=== PATIENT | female | born 1960 | race African-American/Black ===

== ENCOUNTER 2020-10-11 20:43 | Emergency (ER) | payer BC, OTHER, SELFPAY ==
--- OUTSIDE RECORDS SUMMARY | 2020-10-11 20:45 | XMS REPORT | Summary of Care ---
:1960 Author Organization [facility] - Health Address [address] [place] [address] Care Team Providers Name Role Phone Pcp, Patient Does Not Have A Primary Care Provider +[id number] 0-0000 Encounter Details Date Type Department Care Team Description 09/24/2020 Orders Only [facility] Doctor Unassigned, No [address] [facility] [place] [address] [address] [place] [address] Allergies No Known Allergiesdocumented as of this encounter (statuses as of 09/24/2020) Medications Medication Sig Dispensed Refills Start Date End Date Status methylPREDNISolone Take 21 tablets 1 Each 0 02/28/2020 Active (MEDROL, MIGUEL,) 4 mg by mouth tabletsIndications: SEE-INSTRUCTIONS Lumbar radiculopathy . follow package directions documented as of this encounter (statuses as of 09/24/2020) Active Problems Not on filedocumented as of this encounter (statuses as of 09/24/2020) Social History Tobacco Use Types Packs/Day Years Used Date Never Smoker Smokeless Tobacco: Never Used Sex Assigned at Date Recorded Not on file documented as of this encounter Last Filed Vital Signs Not on filedocumented in this encounter Plan of Treatment Health Maintenance Due Date Last Done Comments HEPATITIS C (HCV) SCREEN 1960 Depression Screening 1971 DTaP,Tdap,and Td Vaccines (1 - 1978 Tdap) PAP SMEAR 1980 Breast Cancer Screening (MAMMOGRAM) 1999 COLON CANCER SCREENING ANNUAL 2009 FIT/FOBT COLON CANCER SCREENING FIT DNA 2009 EVERY 3 YEARS COLON CANCER SCREENING 2009 SIGMOIDOSCOPY EVERY 5 YEARS COLONOSCOPY 2009 Colorectal Cancer Screening 2009 Zoster Recombinant Vaccine 2009 (SHINGRIX) (1 of 2) INFLUENZA VACCINE (#1) 2020 PNEUMOCOCCAL 0-64 YEARS COMBINED Aged Out No longer eligible based on SERIES patient's age to complete this topic documented as of this encounter Procedures Procedure Name Priority Date/Time Associated Diagnosis Comme nts CONSENT/REFUSAL FOR Routine 09/24/2020 10:50 AM CLINICAL COORDINATOR DIAGNOSIS AND TREATMENT documented in this encounter Results Not on filedocumented in this encounter Insurance Payer Benefit Plan / Subscriber ID Effective Phone Address T ype Group Dates MEDICAID MEDICAID Effective for [facility] [employer] P ending PENDING [place] [address] documented as of this encounter
--- OUTSIDE RECORDS SUMMARY | 2020-10-11 20:45 | XMS REPORT | Continuity of Care Document ---
:1960 Author Organization [facility] t Address [address] [place] [address] Care Team Providers Name Role Phone Moiz Christianson Attending Clinician Doctor Unassigned, Name Attending Clinician Unavailable Rachel HOLLINS L Attending Clinician Problems This patient has no known problems. Allergies, Adverse Reactions, Alerts This patient has no known allergies or adverse reactions. Medications This patient has no known medications. Procedures This patient has no known procedures. Encounters Start End Encounter Admission Attending Care Care Encounter Source Date/Time Date/Time Type Type Clinicians Facility Department ID 2020-09-24 2020-09-24 Emergency ZACK Hamlin [id number] 10:59:00 13:13:00 Ro Jackson [id number] [place] [id number] [place] [id number] 2020-09-24 2020-09-24 Orders Doctor GANN [id number] 00:00:00 00:00:00 Only UnassHIWOT kiser [id number] [place] [facility] [id number] 2020-02-28 2020-02-28 Office ZACK Ramos [id number] 13:42:58 14:02:55 Visit [facility] [id number] Surgical [id number] [place] [id number] [address] Results This patient has no known results.
--- OUTSIDE RECORDS SUMMARY | 2020-10-11 20:46 | XMS REPORT | Summary of Care ---
:1960 Author Organization [facility] - Health Address [address] [place] [address] Care Team Providers Name Role Phone Pcp, Patient Does Not Have A Primary Care Provider +[id number] 0-0000 Reason for Referral (Routine) Status Reason Specialty Diagnoses / Referred By Contact Refe rred To Procedures Contact New Request URO-UROLOGY Diagnoses Hematuria, gross Ro Hamlin, Procedures Discharge Follow-Up: Specialty Service URO-UROLOGY; 3-5 Days [employer] [address] [place] [phone] Phone: MRI/CAT Scan (STAT) Status Reason Specialty Diagnoses / Referred By Referred To Procedures Contact Contact New Request Diagnostic Diagnoses Left lower quadrant abdominal pain Hematuria, gross Ro Hamlin, Radiology Procedures CT ABDOMEN PELVIS W CONTRAST [employer] [address] [place] [phone] Reason for Visit Reason Comments Pain left lower abdomen Other bright red color urine Auth/Cert Status Reason Specialty Diagnoses / Referred By Referred To Procedures Contact Contact Emergency Medicine [facility] Em ergency Dept [address] [place] [address] Fax: Encounter Details Date Type Department Care Team Description 09/24/2020 Emergency ADC-Emergency Ro Hamlin , CASINO SUPER[employer]OR Hematuria, gross (Primary Dx); Department [address] [place] [address] Left lower quadrant abdominal pain [address] [place] [address] [address] [place] [address] [phone] Allergies No Known Allergiesdocumented as of this encounter (statuses as of 09/24/2020) Medications Medication Sig Dispensed Refills Start Date End Date Status methylPREDNISolone Take 21 tablets 1 Each 0 02/28/2020 Active (MEDROL, MIGUEL,) 4 mg by mouth tabletsIndications: SEE-INSTRUCTIONS Lumbar radiculopathy . follow package directions traMADoL 50 mg Take 1 tablet by 15 tablet 0 09/24/2020 Active tabletIndications: acute mouth every 6 pain (six) hours as needed for Pain (scale 7-10) for up to 15 doses. Indications: acute pain documented as of this encounter (statuses as of 09/24/2020) Active Problems Not on filedocumented as of this encounter (statuses as of 09/24/2020) Social History Tobacco Use Types Packs/Day Years Used Date Never Smoker Smokeless Tobacco: Never Used Sex Assigned at Date Recorded Not on file COVID-19 Exposure Response Date Recorded In the last month, have you been in contact with No / Unsure 09/24/2020 11:07 AM GERIATRIC NURSE someone who was confirmed or suspected to have Coronavirus / COVID-19? documented as of this encounter Last Filed Vital Signs Vital Sign Reading Time Taken Comments Blood Pressure 136/79 09/24/2020 1:00 PM GERIATRIC NURSE Pulse 95 09/24/2020 1:00 PM GERIATRIC NURSE Temperature 36.8 C (98.3 F) 09/24/2020 1:00 PM GERIATRIC NURSE Respiratory Rate 27 09/24/2020 1:00 PM GERIATRIC NURSE Oxygen Saturation 99% 09/24/2020 1:00 PM GERIATRIC NURSE Inhaled Oxygen Concentration - - Weight 109.8 kg (242 lb) 09/24/2020 11:09 AM GERIATRIC NURSE Height 157.5 cm (5' 2") 09/24/2020 11:09 AM GERIATRIC NURSE Body Mass Index 44.26 09/24/2020 11:09 AM GERIATRIC NURSE documented in this encounter Discharge Instructions Ro Meredith FNP - 09/24/2020Take medications as directed Continue all home medications Avoid fatty, fried and spicy foods Follow up with your PCP as discussed -make appointment Follow up with Urology as discussed Return for any concerns AttachmentsThe following attachments cannot be sent through Care Everywhere. Abdominal Pain, Adult (Dominican)Pain, Communicating About (Dominican)Pain Response,Understanding (Dominican)Hematuria (Dominican)Hematuria: Possible Causes (Dominican)Hematuria, What is (Dominican)documented in this encounter ED Notes Stacy Hurtado RN - 09/24/2020 11:07 AM CSTPatient started to have left lower abd pain and bloody urine since last night. H/o htn, arthritis. documented in this encounter Miscellaneous Notes ED Nurse Note - Stacy Hurtado RN - 09/24/2020 1:11 PM CSTDischarge teaching given. One prescription handed over. Patient verbalized understanding. Vitals stable. No acute distress noted. Patient ambulatory. documented in this encounter Plan of Treatment Health Maintenance Due Date Last Done Comments HEPATITIS C (HCV) SCREEN 1960 Depression Screening 1971 DTaP,Tdap,and Td Vaccines ( - 1978 Tdap) PAP SMEAR 1980 Breast [...] encounter Procedures Procedure Name Priority Date/Time Associated Comments Diagnosis CT ABDOMEN PELVIS W STAT 09/24/2020 12:18 PM Left lower nirav drant Results for this CONTRAST GERIATRIC NURSE abdominal pain procedure are in Hematuria, gross the results section. URINALYSIS STAT 09/24/2020 11:25 AM Left lower quadrant R esults for this GERIATRIC NURSE abdominal pain procedure are in Hematuria, gross the results section. CBC WITH DIFF STAT 09/24/2020 11:25 AM Left lower quadrant Results for this GERIATRIC NURSE abdominal pain procedure are in Hematuria, gross the results section. BASIC METABOLIC STAT 09/24/2020 11:25 AM Left lower quadran t Results for this PANEL (NA, K, CL, GERIATRIC NURSE abdominal pain procedure are in CO2, GLUCOSE, BUN, Hematuria, gross the r esults CREATININE, CA) section. HEPATIC FUNCTION STAT 09/24/2020 11:25 AM Left lower quadra nt Results for this PANEL (45112) GERIATRIC NURSE abdominal pain procedure are in (ALB,T.PRO,BILI Hematuria, gross the resu lts T,BU/BC,ALT,AST,ALK section. PHOS) NOTICE OF PRIVACY Routine 09/24/2020 10:54 AM PRACTICES GERIATRIC NURSE documented in this encounter Results CT ABDOMEN PELVIS W CONTRAST (09/24/2020 12:18 PM GERIATRIC NURSE) Specimen Narrative Performed At This result has an attachment that is no t available. CT Abdomen and Pelvis with intravenous contrast. PACS/VR/DOSE CLINICAL HISTORY: Abdominal pain. Rule out diverticuli tis. DOSE: Up-to-date CT equipment and radiation dose reduc tion techniques were employed. CTDIvol: 18.91 mGy. DLP: 849 mGy-cm. TECHNIQUE : Contiguous axial imaging from the level of the lung bases through the pubic symphysis were performed after the u ncomplicated administration of Omnipaque contrast material. Coronal and sagittal reconstructions were obtained. Auto mA and/or iterativ e reconstruction were used to reduce radiation dose. FINDINGS: Lower lungs: Clear. Liver, Gallbladder and Spleen: 12 mm low-density lesio n in the lateral subdiaphragmatic right lobe (segment 7) is of uncertai n etiology on this single phase imaging study but could be cystic lesion. Mild thickening of the gallbladder garcia noted. Liver measures approximat taj 17.5 cm in length. Spleen measures approximately 10 x 4 cm. Bile ducts and the pancreatic duct appear of normal size. Peritoneum: No free air or free fluid. No lymphadeno joel. Pancreas and Adrenals: Unremarkable pancreas and adr enal gland.1.5 cm size lesion also noted adjacent to the anterior surface of upper pole of the right kidney, likely arising from the lateral limb of the right adrenal gland. Kidneys and Ureters: No visible calculi in the renal collecting systems. No hydroureter or hydronephrosis. 5 mm low-density les ion in the dorsal cortex at the interpolar level of the left kidney coul d be small cyst. lobulation noted in the anterior upper left kidn ey. In addition, a fat-containing 3 x 2 cm sized tumor also noted along t he ventral surface near the upper pole of the left kidney. Etiology of th e fatty tumor is uncertain but it appears benign. Vessels: Calcifications are noted in some of the retro peritoneal veins on both sides. Retroperitoneum: No abnormal fluid or lymphadenopathy. Bowel: Diverticulosis of sigmoid colon noted without a ny acute changes. Mild constipation noted. Normal appendix is visualized . Bladder and Reproductive Organs: S/P hysterectomy. No gross pathology in the unopacified urinary bladder. No adnexal masses. Bones: Degenerative disc disease at L4-L5 with vacuum phenomenon. Degenerative disc disease also noted at L5-S1, L3-L4. Multilevel facet arthropathy is noted throughout lumbar spines, slightl y more at L3-L4 level. No aggressive bone lesions. No signs of AVN in the femoral heads. Soft tissues: 3 cm size right paraumbilical fat-contai lei hernia without any complications. CONCLUSION: 1. No acute intra-abdominal or pelvic abnormalities de tected. Sigmoid diverticulosis is noted without any acute changes of d iverticulitis. 2. S/P hysterectomy. 3. Mild hepatomegaly with low-density 12 mm lesion in the right lobe of the liver could be an incidental cyst of the exact etiolog y is uncertain in this single phase CT imaging. 4. Fat-containing 3 x 2 cm size tumor is seen on the v entral surface near the upper pole of the left kidney. Tumor appears benig n. 5. 15 mm right adrenal gland tumor, of unknown etiolog y. Monitoring of the right adrenal tumor and the fat-containing tumor in th e left retroperitoneum suggested by follow-up CT scan in 4-6 months. Procedure Note [facility], Radiant Results Inft User - 2019 12:[address] Abdomen and Pelvis with intravenous contrast. CLINICAL HISTORY: Abdominal pain. Rule o ut diverticulitis. DOSE: Up-to-date CT equipment and radiat ion dose reduction techniques were employed. CTDIvol: 18.91 mGy. DLP: 849 mGy-cm. TECHNIQUE : Contiguous axial imaging fro m the level of the lung bases through the pubic symphysis were perform ed after the uncomplicated administration of Omnipaque contrast mat erial. Coronal and sagittal reconstructions were obtained. Auto mA a nd/or iterative reconstruction were used to reduce radiation dose. FINDINGS: Lower lungs: Clear. Liver, Gallbladder and Spleen: 12 mm low -density lesion in the lateral subdiaphragmatic right lobe (segment 7) is of uncertain etiology on this single phase imaging study but could be cystic lesion. Mild thickening of the gallbladder garcia noted. Liver measu res approximately 17.5 cm in length. Spleen measures approximately 10 x 4 cm. Bile ducts and the pancreatic duct appear of normal size. Peritoneum: No free air or free fluid. No lymphadenopathy. Pancreas and Adrenals: Unremarkable minaya creas and adrenal gland.1.5 cm size lesion also noted adjacent to the anteri or surface of upper pole of the right kidney, likely arising from the la teral limb of the right adrenal gland. Kidneys and Ureters: No visible calculi in the renal collecting systems. No hydroureter or hydronephrosis. 5 mm l ow-density lesion in the dorsal cortex at the interpolar level of the le ft kidney could be small cyst. lobulation noted in the anterior u pper left kidney. In addition, a fat-containing 3 x 2 cm sized tumor also noted along the ventral surface near the upper pole of the left kidney. Etiology of the fatty tumor is uncertain but it appears benign. Vessels: Calcifications are noted in kenan e of the retroperitoneal veins on both sides. Retroperitoneum: No abnormal fluid or ly mphadenopathy. Bowel: Diverticulosis of sigmoid colon n oted without any acute changes. Mild constipation noted. Normal appendix is visualized. Bladder and Reproductive Organs: S/P hys terectomy. No gross pathology in the unopacified urinary bladder. No adne xal masses. Bones: Degenerative disc disease at L4-L 5 with vacuum phenomenon. Degenerative disc disease also noted at L5-S1, L3-L4. Multilevel facet arthropathy is noted throughout lumbar s pines, slightly more at L3-L4 level. No aggressive bone lesions. No si gns of AVN in the femoral heads. Soft tissues: 3 cm size right paraumbili lora fat-containing hernia without any complications. CONCLUSION: 1. No acute intra-abdominal or pelvic ab normalities detected. Sigmoid diverticulosis is noted without any acut e changes of diverticulitis. 2. S/P hysterectomy. 3. Mild hepatomegaly with low-density 12 mm lesion in the right lobe of the liver could be an incidental cyst of the exact etiology is uncertain in this single phase CT imaging. 4. Fat-containing 3 x 2 cm size tumor is seen on the ventral surface near the upper pole of the left kidney. Tumor appears benign. 5. 15 mm right adrenal gland tumor, of u nknown etiology. Monitoring of the right adrenal tumor and the fat-containi ng tumor in the left retroperitoneum suggested by follow-up C T scan in 4-6 months. Performing Organization Address City/[facility] [address]/Zipcode Phone Number PACS/VR/DOSE Hepatic Function Panel (ALB, T.PRO, BILI T, BU/BC, ALT, AST, ALK PHOS) (09/24/2020 11:25 AM GERIATRIC NURSE) Pathologist Sig nature TOTAL BILI 0.4 0.1 - 1.1 mg/dL [facility] BILI UNCON 0.3 0.1 - 1.1 mg/dL [facility] BILI CONJ 0.0 0.0 - 0.3 mg/dL [facility] T PROTEIN 7.9 6.3 - 8.2 g/dL [facility] ALBUMIN 4.4 3.5 - 5.0 g/dL [facility] ALK PHOS 58 34 - 122 U/L [facility] ALTv 12 5 - 35 U/L [facility] AST(SGOT) 28 13 - 40 U/L [facility] Specimen Blood - VENOUS Performing Organization Address City/[facility] [address]/Zipcode Phone Number [facility] CLIA: [id number] [place] [address] Basic Metabolic Panel (NA, K, CL, CO2, GLUCOSE, BUN, CREATININE, CA) (09/24/2020 11:25 AM GERIATRIC NURSE) Pathologist Sig nature NA 138 135 - 145 [facility] mmol/L [facility] K 4.1 3.5 - 5.0 [facility] mmol/L [facility] CL 102 98 - 108 mmol/L [facility] CO2 TOTAL 28 23 - 31 mmol/L [facility] AGAP 8 2 - 16 [facility] BUN 25 (H) 7 - 23 mg/dL [facility] GLUCOSE 99 70 - 110 mg/dL [facility] CREATININE 0.95 0.50 - 1.04 [facility] mg/dL [facility] CALCIUM 9.8 8.6 - 10.6 [facility] mg/dL [facility] eGFR Calculation 60.0 mL/min/1.73m2 [facility] (Non-) [facility] eGFR Calculation 72.7 mL/min/1.73m2 [facility] () [facility] Specimen Blood - VENOUS Narrative Performed At Association of Glomerular Filtration Rate (GFR) [facility] and Staging of Kidney Disease* + + +- + | GFR (mL/min/1.73 m2) | With Kidney Damage | Without Kidney Damage + + +- + | >90 | Stage one | Normal + + +- + | 60-89 | Stage two | Decreased GFR + + +- + | 30-59 | Stage three | Stage three + + +- + | 15-29 | Stage four | Stage four + + +- + | <15 (or dialysis) | Stage five | Stage five + + +- + *Each stage assumes the associated GFR level has been in effect for at least three months. Stages 1 to 5, with or without kidney disease, indicate chronic kidney disease. Notes: Determination of stages one and two (with eGFR >59mL/min/1.73 m2) requires estimation of kidney damage for at least three months as defined by structural or functional abnormalities of the kidney, manifested by either: Pathological abnormalities or Markers of kidney damage (including abnormalities in the composition of the blood or urine or abnormalities in imaging tests). Performing Organization Address City/State/Zipcode Phone Number [facility] CLIA: [id number] [place] [address] CBC with Differential (09/24/2020 11:25 AM GERIATRIC NURSE) [facility] WBC 8.13 4.30 - 11.10 [facility] 10*3/L [facility] RBC 3.85 (L) 3.93 - 5.25 [facility] 10*6/L [facility] HGB 10.8 (L) 11.6 - 15.0 [facility] g/dL [facility] HCT 33.6 (L) 35.7 - 45.2 % [facility] MCV 87.3 80.6 - 95.5 fL [facility] MCH 28.1 25.9 - 32.8 pg [facility] MCHC 32.1 31.6 - 35.1 [facility] g/dL [facility]ITAL [facility] RDW-SD 46.7 39.0 - 49.9 fL [facility] RDW-CV 14.6 12.0 - 15.5 % [facility] PLT 231 166 - 358 [facility] 10*3/L [facility] MPV 10.8 9.5 - 12.9 fL [facility] NRBC/100 WBC 0.0 0.0 - 10.0 /100 [facility] WBCs [facility] NRBC x10^3 <0.01 10*3/L [facility] GRAN MAT (NEUT) % 48.5 % [facility] IMM GRAN % 0.50 % [facility] LYMPH % 36.4 % [facility] MONO % 10.3 % [facility] EOS % 3.7 % [facility] BASO % 0.6 % [facility] GRAN MAT x10^3(ANC) 3.94 1.88 - 7.09 [facility] 10*3/uL [facility] IMM GRAN x10^3 0.04 0.00 - 0.06 [facility] 10*3/uL [facility] LYMPH x10^3 2.96 1.32 - 3.29 [facility] 10*3/uL [facility] MONO x10^3 0.84 0.33 - 0.92 [facility] 10*3/uL [facility] EOS x10^3 0.30 0.03 - 0.39 [facility] 10*3/uL [facility] BASO x10^3 0.05 0.01 - 0.07 [facility] 10*3/uL [facility] Specimen Blood - VENOUS Performing Organization Address City/State/Zipcode Phone Number [facility] CLIA: [id number] [place], [place] [id number] LABORATORY [address] Urinalysis (09/24/2020 11:25 AM GERIATRIC NURSE) Pathologist Sig nature APPEARANCE Cloudy (A) Clear [facility] COLOR Vandana (A) Yellow [facility] PH 6.0 4.8 - 8.0 [facility] SP GRAVITY 1.016 1.003 - 1.030 [facility] GLU U QUAL Normal Normal [facility] BLOOD 3+ (A) Negative [facility] KETONES Negative Negative [facility] PROTEIN 100 mg/dL (A) Negative [facility] UROBILIN Normal Normal [facility] BILIRUBIN Negative Negative [facility] NITRITE Negative Negative [facility] LEUK SOCORRO Negative Negative [facility] RBC/HPF >182 (H) 0 - 3 HPF [facility] WBC/HPF 4 0 - 5 HPF [facility] BACTERIA Few (A) Negative [facility] MUCOUS Marked (A) Negative LPF [facility] SQ EPITH 5 HPF [facility] Specimen Urine - URINE, CLEAN CATCH Performing Organization Address City/State/Zipcode Phone Number [facility] CLIA: [id number] [place] [address] documented in this encounter Visit Diagnoses Diagnosis Hematuria, gross - Primary Gross hematuria Left lower quadrant abdominal pain documented in this encounter Administered Medications Medication Order MAR Action Action Date Dose Rate Site acetaminophen (TYLENOL) tablet Given 09/24/2020 1:00 PM GERIATRIC NURSE 1,0 00 mg 1,000 mg 1,000 mg, Oral, ONCE, 1 dose, Tue09/24/20 at 1400, CAESAR iohexol (OMNIPAQUE 350 BULK-150 mL) Given 09/24/2020 12:14 PM CS T 120 mL injection 120 mL 120 mL, Intravenous, ONCE, 1 dose, Tue09/24/20 at 1230, Routine NaCl 0.9% (NS) bolus infusion New Bag 09/24/2020 12:01 PM GERIATRIC NURSE 1,000 mL 999 mL/hr 1,000 mL at 999 mL/hr, 1,000 mL, IV Infusion, ONCE, 1 dose, Tue09/24/20 at 1200, CAESAR documented in this encounter Insurance Payer Benefit Plan / Subscriber ID Effective Phone Address T ype Group Dates MEDICAID MEDICAID PENDING 2020-Pre [address] [place] [address] Pending [place] [address] documented as of this encounter
[2020-10-11 21:42] LABS: Absolute Lymphocytes (CBC) 2.1 K/uL (0.7-4.9); Basophils % 0.7 % (0-1.3); Hematocrit 32.7 % (36.0-45.0); Lymphocytes % 29.6 % (15.3-44.8); MPV 8.7 fL (7.6-11.3); RBC Red Blood Cell Count 3.83 M/uL (3.86-4.86)
[2020-10-11] MEDS ORDERED: ONDANSETRON 4 MG/2 ML VIAL ONE (21:49)
[2020-10-11] MEDS ORDERED: MORPHINE 4 MG/ML SYR ONE (21:49)
[2020-10-11 21:50] LABS: Protime INR 0.99
[2020-10-11 22:03] LABS: ALT/SGPT 14 U/L (12-78); AST/SGOT 14 U/L (15-37); Albumin 3.7 g/dL (3.4-5.0); Alkaline Phosphatase 68 U/L (45-117); BUN Blood Urea Nitrogen 21 mg/dL (7-18); Bicarbonate 27 mmol/L (21-32); Bilirubin Direct < 0.1 mg/dL (0-0.2); Bilirubin Total 0.3 mg/dL (0.2-1.0); Glucose Level 114 mg/dL (74-106); Potassium 3.5 mmol/L (3.5-5.1); Protein, Total 7.6 g/dL (6.4-8.2); Sodium Level 140 mmol/L (136-145)
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
[2020-10-12 03:17] VITALS: TEMP 98
[2020-10-12 03:24] VITALS: BP 145/83; O2SAT 98
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
== END 2020-10-12 02:53 | disposition home or self-care (01) ==
LOC: ER 20:43
DX: S20.211A Contusion of right front wall of thorax, initial encounter (principal); S80.02XA Contusion of left knee, initial encounter; S40.022A Contusion of left upper arm, initial encounter; V49.40XA Driver injured in collision with unspecified motor vehicles in traffic accident, initial encounter; I10 Essential (primary) hypertension; E11.9 Type 2 diabetes mellitus without complications
CPT/HCPCS: 36415; 70450; 71260; 72125; 72170; 74177; 80048; 80076; 82565; 85025; 85610; 85730; 86850; 86900; 86901; 96374; 96375; 99285; G0390; J2405; Q9967

== ENCOUNTER 2022-07-20 12:39 | Inpatient (IN) | payer MEDICARE ==
--- OUTSIDE RECORDS SUMMARY | 2022-07-20 12:43 | XMS REPORT | Continuity of Care Document ---
:1960 Author Organization [facility] t Address [address] [place] [address] Care Team Providers Name Role Phone Peetr Robledo Primary Care Physician [phone] Arin Carrasquillo Attending Clinician Unavailable OWENS_T Attending Clinician Unavailable QUINTON HOOPER Attending Clinician Unavailable RAFAEL TAVERAS Attending Clinician Unavailable Ro Christianson Attending Clinician Doctor Unassigned, Currie Attending Clinician Unavailable ROLA MCNEILL Attending Clinician Unavailable Rola Mcneill MD Attending Clinician Kathleen Jovel Admitting Clinician Unavailable OWENS_T Admitting Clinician Unavailable Payers Payer Name Policy Type Policy Number Effective Date Expiration Date jase [facility] 2021 (MEDICARE 00:00:00 REPLACEMENT HMO) Problems This patient has no known problems. Allergies, Adverse Reactions, Alerts Allergy Allergy Status Severity Reaction(s) Onset Inactive Treating Comm ents Source Name Type Date Date Clinician NO KNOWN Drug Active [facility] ALLERGIE Class [facility] Medications Ordered Filled Start Stop Current Ordering Indication Dosage Frequency Signature Comments Components Source Medication Medication Date Date Medication? Clinician (SIG) Name Name TAKE 1 2021-0 No TABLET BY 9-13 MOUTH EVERY 00:00: 6 TO 8 00 HOURS NEEDED FOR PAIN naproxen 2021-0 No 1mg 500 mg 2-07 tablet 00:00: 00 gabapentin 2021-0 No 2mg 100 mg 2-07 capsule 00:00: 00 valsartan 2020-0 No 1mg 40 mg 8-04 tablet 00:00: 00 allopurinol 2020-0 No 1mg 100 mg 8-04 tablet 00:00: 00 Dose 2020-0 No Unknown 8-04 00:00: 00 Dose 2020-0 No Unknown 8-04 00:00: 00 metformin 2020-0 No 1mg ER 500 mg 8-04 24 hr 00:00: tablet,exte 00 nded release (gastric) gabapentin 2020-0 No 1mg 100 mg 8-04 capsule 00:00: 00 valsartan 2020-0 No 1mg 40 mg 8-03 tablet 00:00: 00 allopurinol 2020-0 No 1mg 100 mg 8-03 tablet 00:00: 00 furosemide 2020-0 No 1mg 20 mg 8-03 tablet 00:00: 00 meloxicam 2020-0 No 1mg 7.5 mg 8-03 tablet 00:00: 00 metformin 2020-0 No 1mg ER 500 mg 8-03 24 hr 00:00: tablet,exte 00 nded release (gastric) gabapentin 2020-0 No 1mg 100 mg 8-03 capsule 00:00: 00 terbinafine 2020-0 No 1% HCl 1 % 5-21 topical 00:00: cream 00 valsartan 2020-0 No 1mg 40 mg 5-21 tablet 00:00: 00 allopurinol 2020-0 No 1mg 100 mg 5-21 tablet 00:00: 00 furosemide 2020-0 No 1mg 20 mg 5-21 tablet 00:00: 00 metformin 2020-0 No 1mg ER 500 mg 5-21 24 hr 00:00: tablet,exte 00 nded release (gastric) gabapentin 2020-0 No 1mg 100 mg 5-21 capsule 00:00: 00 metformin 2020-0 No 1mg ER 500 mg 2-14 24 hr 00:00: tablet,exte 00 nded release valsartan 2020-0 No 1mg 40 mg 2-13 tablet 00:00: 00 allopurinol 2020-0 No 1mg 100 mg 2-13 tablet 00:00: 00 meloxicam 2020-0 No 1mg 7.5 mg 2-13 tablet 00:00: 00 furosemide 2020-0 No 1mg 20 mg 2-13 tablet 00:00: 00 gabapentin 2020-0 No 1mg 100 mg 2-13 capsule 00:00: 00 valsartan 2020-0 No 1mg 40 mg 2-04 tablet 00:00: 00 tramadol 50 2019-1 No 1mg mg tablet 2-16 00:00: 00 gabapentin 2019-1 No 1mg 100 mg 2-16 capsule 00:00: 00 gabapentin 2019-1 No 1mg 100 mg 2-16 capsule 00:00: 00 allopurinol 2019-1 No 1mg 100 mg 2-16 tablet 00:00: 00 losartan 2019-1 No 1mg 100 2-16 mg-hydrochl 00:00: orothiazide 00 25 mg tablet meloxicam 2018-1 No 1mg 7.5 mg 2-16 tablet 00:00: 00 amlodipine 2019-1 No 1mg 10 mg 2-16 tablet 00:00: 00 meloxicam 2019-1 No 1mg 7.5 mg 2-16 tablet 00:00: 00 allopurinol 2019-1 No 1mg 100 mg 2-16 tablet 00:00: 00 furosemide 2019-1 No 1mg 20 mg 2-16 tablet 00:00: 00 Immunizations Ordered Immunization Filled Immunization Date Status Commen ts Source Name Name Jamel CHAOID-19 2021-11-25 Completed Vaccine 00:00:00 Jamel COVID-19 2021-04-30 Completed Vaccine 00:00:00 Jamel COVID-19 2021-03-31 Completed Vaccine 00:00:00 Vital Signs Vital Name Observation Time Observation Value Comments Source BP Systolic 2022-07-07 10:52:00 128 mm[Hg] BP Diastolic 2022-07-07 10:52:00 76 mm[Hg] Weight Measured 2022-07-07 10:52:00 234.00 pounds Height Measured 2022-07-07 10:52:00 62.40 inches Body Temperature 2022-07-07 10:52:00 97.90 degrees Heart Rate 2022-07-07 10:52:00 89.00 /min Respiratory Rate 2022-07-07 10:52:00 18.00 /min BP Systolic 2021-11-09 16:42:00 151 mm[Hg] BP Diastolic 2021-11-09 16:42:00 90 mm[Hg] Weight Measured 2021-11-09 16:42:00 231.80 pounds Height Measured 2021-11-09 16:42:00 62.40 inches Body Temperature 2021-11-09 16:42:00 98.30 degrees Heart Rate 2021-11-09 16:42:00 88.00 /min Respiratory Rate 2021-11-09 16:42:00 16.00 /min BP Systolic 2021-05-06 14:50:00 154 mm[Hg] BP Diastolic 2021-05-06 14:50:00 88 mm[Hg] Weight Measured 2021-05-06 14:50:00 243.00 pounds Height Measured 2021-05-06 14:50:00 62.40 inches Body Temperature 2021-05-06 14:50:00 97.90 degrees Heart Rate 2021-05-06 14:50:00 90.00 /min Respiratory Rate 2021-05-06 14:50:00 16.00 /min BP Systolic 2020-05-05 17:37:00 140 mm[Hg] BP Diastolic 2020-05-05 17:37:00 84 mm[Hg] Weight Measured 2020-05-05 17:37:00 232.00 pounds Height Measured 2020-05-05 17:37:00 62.40 inches Body Temperature 2020-05-05 17:37:00 98.30 degrees Heart Rate 2020-05-05 17:37:00 95.00 /min Respiratory Rate 2020-05-05 17:37:00 16.00 /min Heart Rate 2020-02-21 15:33:00 98.00 /min Respiratory Rate 2020-02-21 15:33:00 16.00 /min BP Systolic 2020-02-21 15:33:00 97 mm[Hg] BP Diastolic 2020-02-21 15:33:00 63 mm[Hg] Weight Measured 2020-02-21 15:33:00 225.40 pounds Height Measured 2020-02-21 15:33:00 62.40 inches Body Temperature 2020-02-21 15:33:00 99.40 degrees BP Systolic 2020-01-24 13:42:00 152 mm[Hg] BP Diastolic 2020-01-24 13:42:00 83 mm[Hg] Weight Measured 2020-01-24 13:42:00 231.60 pounds Height Measured 2020-01-24 13:42:00 62.40 inches Body Temperature 2020-01-24 13:42:00 98.20 degrees Heart Rate 2020-01-24 13:42:00 89.00 /min Respiratory Rate 2020-01-24 13:42:00 16.00 /min BP Systolic 2019-12-20 14:38:00 118 mm[Hg] BP Diastolic 2019-12-20 14:38:00 70 mm[Hg] Weight Measured 2019-12-20 14:38:00 224.80 pounds Height Measured 2019-12-20 14:38:00 62.40 inches Body Temperature 2019-12-20 14:38:00 209.11 degrees Heart Rate 2019-12-20 14:38:00 85.00 /min Respiratory Rate 2019-12-20 14:38:00 16.00 /min BP Systolic 2019-11-15 10:13:00 130 mm[Hg] BP Diastolic 2019-11-15 10:13:00 84 mm[Hg] Weight Measured 2019-11-15 10:13:00 224.80 pounds Height Measured 2019-11-15 10:13:00 62.40 inches Body Temperature 2019-11-15 10:13:00 97.90 degrees Heart Rate 2019-11-15 10:13:00 80.00 /min Respiratory Rate 2019-11-15 10:13:00 16.00 /min BP Systolic 2019-11-06 10:14:00 128 mm[Hg] BP Diastolic 2019-11-06 10:14:00 81 mm[Hg] Weight Measured 2019-11-06 10:14:00 225.00 pounds Height Measured 2019-11-06 10:14:00 62.40 inches Body Temperature 2019-11-06 10:14:00 98.00 degrees Heart Rate 2019-11-06 10:14:00 85.00 /min Respiratory Rate 2019-11-06 10:14:00 16.00 /min BP Systolic 2019-09-17 13:14:00 157 mm[Hg] BP Diastolic 2019-09-17 13:14:00 91 mm[Hg] Weight Measured 2019-09-17 13:14:00 239.40 pounds Height Measured 2019-09-17 13:14:00 62.40 inches Body Temperature 2019-09-17 13:14:00 98.70 degrees Heart Rate 2019-09-17 13:14:00 86.00 /min Respiratory Rate 2019-09-17 13:14:00 16.00 /min Procedures This patient has no known procedures. Plan of Care Planned Activity Planned Date Details Comments Source Goal Plan of Care Note [code = 41050-6] Goal Plan of Care Note [code = 47647-1] Goal Plan of Care Note [code = 51189-6] Goal Plan of Care Note [code = 79834-1] Goal Plan of Care Note [code = 65254-8] Goal Plan of Care Note [code = 61646-0] Goal Plan of Care Note [code = 74130-2] Goal Plan of Care Note [code = 15183-4] Goal Plan of Care Note [code = 32749-6] Goal Plan of Care Note [code = 40503-8] Goal Plan of Care Note [code = 10806-6] Goal Plan of Care Note [code = 16226-8] Goal Plan of Care Note [code = 87883-9] Goal Plan of Care Note [code = 40208-5] Goal Plan of Care Note [code = 06861-3] Encounters Start End Encounter Admission Attending Care Care Encounter Source Date/Time Date/Time Type Type Clinicians Facility Department ID 2021-08-01 Emergency [facility] [id number] [facility] 2022-07-07 Outpatient KIM ALVAREZ [id number] Manny 10:38:04 10:38:04 1005 F Gerardo 2022-07-07 2022-07-07 Outpatient [id number] 00:00:00 00:00:00 Visit [id number] 2022-06-04 Outpatient Arin Guaman [facility] [place]0 [id number] [facility] 08:00:00 08:00:00 86 [facility] 2022-06-03 2022-06-03 Outpatient Arin Guaman [facility] [place]0 [id number] [facility] 11:16:00 11:16:00 99 [facility] 2022-04-16 2022-04-16 [place] [id number] [facility] 06:14:00 06:14:00 [facility] 2021-10-07 2021-10-07 Outpatient OWENS_T DMG DMG [id number] [facility] 05:50:00 05:50:00 0[facility] 2021-09-03 2021-09-03 Outpatient DMG DMG [id number] [facility] 08:02:00 08:02:00 1202 [facility] 2021-04-16 2021-04-16 [place] [id number] [facility] 12:00:00 12:00:00 0715 [facility] 2021-01-06 2021-01-06 [facility] [id number] [facility] 11:15:00 11:15:00 [facility] 2020-12-02 2020-12-02 Outpatient R RUFUS [facility] [id number] Univers 15:30:00 15:30:00 [facility] 2020-10-28 2020-10-28 [facility] [id number] Univers 13:00:00 13:00:00 [facility] 2020-10-23 2020-10-23 Outpatient Aline TAVERAS [facility] [id number] Univers 13:00:00 13:00:00 [facility] 2020-09-24 2020-09-24 [facility] [id number] 10:59:00 13:13:00 Ro Jackson 350.1.13.10 [facility] 4.2.7.2.686 [place] [id number] 2020-09-24 2020-09-24 Toya GANN [id number] 00:00:00 00:00:00 Only Unassigned, HIWOT 350.1.13.10 [facility] [id number] [id number] 2020-02-28 2020-02-28 Outpatient R OSITO [facility] [id number] Univers 14:15:00 14:15:[address] [facility] 2020-02-28 2020-02-28 Office Osito [facility] [id number] 13:42:58 14:02:[address] [facility] [employer] 350.1.13.10 Surgical 4.2.7.2.686 Specialti [id number] [employer] Results Test Description Test Time Test Comments Results Result Comments Source HEMOGLOBIN A1c 2022-07-08 05:10:16 Test Item Value Reference Range Interpretation Comme nts HEMOGLOBIN A1c (test code = 6.7 % 4.2-5.6 H [employer] 74294) GUIDELINES FOR HGB A1C: PREDIABETES/INC REASED RISK . . . . . . . 5.7-6.4% DIAGNO SIS OF DIABETES . . . . . . . . . >=6.5% WITH CONFIRMATION OR APPROPRIATE SYM PTOMS NOTE: ASSAY MAY BE AFFECTED BY HEM OGLOBINOPATHIES (SICKLE CELL ANEMIA, S- C DISEASE, OTHERS) OR ARTIFICIALLY LO WERED BY DECREASED RED CELL SURVIVAL ( HEMOLYTIC ANEMIAS, BLOOD LOSS, ETC.). CO NSIDER ALTERNATE TESTING OR LABORATORY C ONSULTATION. LIPID [id number] 03:29:16 Test Item Value Reference Range Interpretation Comments CHOLESTEROL (test 229 MG/DL <200 H code = 2210) TRIGLYCERIDES (test 139 MG/DL <150 code = 2232) HDL CHOLESTEROL (test 51 MG/DL >39 code = 2220) CALC LDL CHOL (test 152 MG/DL <100 H NOTE: C ALCULATED LDL code = 2237) IS BASED ON SAEID-KUHN METHOD WHICHINCLUDES ADJUSTABLE TRIGLYCERIDE:VL DL CHOLESTEROL RAT IO.THIS FACTOR VARIES B Y MEASURED TRIGLY CERIDE AND NON-HDLCHOL ESTEROL CONCENTRATIONS WITH INCREASED CALCU LATED LDL SEENIN HIGH ER TRIGLYCERIDE OR LOWER NON-HDL SPECIME NS. FOR MOREINFORMATION , SEE CLIENT ANNOUNCE MENT AT [email or web address] RISK RATIO LDL/HDL 2.98 RATIO <3.22 UNLESS O THERWISE (test code = 2238) INDICATED , ALL TESTING PERFORMED [facility]. [address] [place] [address] [facility] DIRECTOR: SATNAM AVENDANO M.D. CLIA NUMBER [id number] CAP ACCREDITATION N O. [id number] HEMOGLOBIN [id number] 00:00:00 Test Item Value Reference Range Interpretation Comments HEMOGLOBIN A1c (test code = 71469) 6.7 % HEMOGLOBIN [id number] 00:00:00 Test Item Value Reference Range Interpretation Comments HEMOGLOBIN A1c (test code = 60347) 6.7 % HEMOGLOBIN [id number] 00:00:00 Test Item Value Reference Range Interpretation Comments HEMOGLOBIN A1c (test code = 76570) 6.7 % LIPID [id number] 00:00:00 Test Item Value Reference Range Interpretation Comments CHOLESTEROL (test code = 2210) 229 MG/DL TRIGLYCERIDES (test code = 2232) 139 MG/DL HDL CHOLESTEROL (test code = 2220) 51 MG/DL CALC LDL CHOL (test code = 2237) 152 MG/DL RISK RATIO LDL/HDL (test code = 2.98 RATIO 2238) LIPID [id number] 00:00:00 Test Item Value Reference Range Interpretation Comments CHOLESTEROL (test code = 2210) 229 MG/DL TRIGLYCERIDES (test code = 2232) 139 MG/DL HDL CHOLESTEROL (test code = 2220) 51 MG/DL CALC LDL CHOL (test code = 2237) 152 MG/DL RISK RATIO LDL/HDL (test code = 2.98 RATIO 2238) - PELVIC [id number] 14:49:00 [facility] Aline : 1960 Sex: F Name: WEI BROWN : 1960 Age/S: 61 / F [address] [address] Unit #: [id number] Loc: [place] [address] Phys: Arin Carrasquillo MD Acct: [id number] Dis Date: Status: REG CLI PHONE #: [phone] Exam Date: 06/03/2022 1300 FAX #: Reason: Hx of Ovarian Cyst EXAMS: CPT: [id number] US PELV IC COMPLETE 54858 HISTORY: Pain. History of ovarian cyst Location Code: B2 TECHNIQUE: Multiple transverse and longitudinal sonographic images were obtained. FINDINGS: The uterus is surgically absent.The ovaries are not well visualized bilaterally. No suspicious adnexal masses are seen. There is no free fluid in the cul-de-sac. IMPRESSION: 1. Nonvisualization of the ovaries. No suspicious adnexal masses. 2. Surgically absent uterus at 1449 Reported and signed by: Jared Burris M.D. CC: Arin Carrasquillo MD; Kathleen Jovel DO Technologist: Lavonne Glil Trnmib Date/Time: 06/03/2022 (1449) [email or web address] PAGE 1 Signed Report Name: WEI BROWN [place] : 1960 Age/S: 61 / F [address] [facility] Unit #: [id number] Loc: [place] [address] Phys: Arin Carrasquillo MD Acct: [id number] Dis Date: Status: REG CLI PHONE #: [phone] Exam Date: 06/03/2022 1300 FAX #: Reason: Hx of Ovarian Cyst EXAMS: CPT: [id number] US PELVIC COMPLETE [id number] (Cont inued) Orig Print D/T: S: 06/03/2022 (4092) Probe: PAGE 2 Signed Report HEMOGLOBIN [id number] 00:00:00 Test Item Value Reference Range Interpretation Comments HEMOGLOBIN A1c (test code = 98573) 6.5 % HEMOGLOBIN [id number] 00:00:00 Test Item Value Reference Range Interpretation Comments HEMOGLOBIN A1c (test code = 02995) 6.5 % HEMOGLOBIN [id number] 00:00:00 Test Item Value Reference Range Interpretation Comments HEMOGLOBIN A1c (test code = 47955) 6.5 % HEMOGLOBIN [id number] 00:00:00 Test Item Value Reference Range Interpretation Comments HEMOGLOBIN A1c (test code = 69458) 6.4 % HEMOGLOBIN [id number] 00:00:00 Test Item Value Reference Range Interpretation Comments HEMOGLOBIN A1c (test code = 75229) 6.4 % HEMOGLOBIN [id number] 00:00:00 Test Item Value Reference Range Interpretation Comments HEMOGLOBIN A1c (test code = 55035) 6.4 % LIPID [id number] 00:00:00 Test Item Value Reference Range Interpretation Comments CHOLESTEROL (test code = 2210) 193 MG/DL TRIGLYCERIDES (test code = 2232) 105 MG/DL HDL CHOLESTEROL (test code = 2220) 48 MG/DL CALC LDL CHOL (test code = 2237) 124 MG/DL RISK RATIO LDL/HDL (test code = 2.58 RATIO 2238) LIPID [id number] 00:00:00 Test Item Value Reference Range Interpretation Comments CHOLESTEROL (test code = 2210) 193 MG/DL TRIGLYCERIDES (test code = 2232) 105 MG/DL HDL CHOLESTEROL (test code = 2220) 48 MG/DL CALC LDL CHOL (test code = 2237) 124 MG/DL RISK RATIO LDL/HDL (test code = 2.58 RATIO 2238) COMPREHENSIVE METABOLIC [id number] 00:00:00 Test Item Value Reference Range Interpretation Comments GLUCOSE (test code = 2217) 101 MG/DL BUN (test code = 2208) 21 MG/DL CREATININE (test code = 2214) 0.89 MG/DL eGFR AMER. (test code 82 ML/MIN/1.73 = 44834) eGFR NON- AMER. (test 71 ML/MIN/1.73 code = 90313) CALC BUN/CREAT (test code = 24 RATIO 2235) SODIUM (test code = 2231) 140 MEQ/L POTASSIUM (test code = 2228) 4.2 MEQ/L CHLORIDE (test code = 2215) 101 MEQ/L CARBON DIOXIDE (test code = 26 MEQ/L 2205) CALCIUM (test code = 2209) 9.5 MG/DL PROTEIN, TOTAL (test code = 7.2 G/DL 2228) ALBUMIN (test code = 2201) 4.4 G/DL CALC GLOBULIN (test code = 2.8 G/DL 2240) CALC A/G RATIO (test code = 1.6 RATIO 2234) BILIRUBIN, TOTAL (test code = <0.2 MG/DL 2206) ALKALINE PHOSPHATASE (test 59 U/L code = 2204) AST (test code = 2218) 11 U/L ALT (test code = 2219) 10 U/L COMPREHENSIVE METABOLIC [id number] 00:00:00 Test Item Value Reference Range Interpretation Comments GLUCOSE (test code = 2217) 101 MG/DL BUN (test code = 2208) 21 MG/DL CREATININE (test code = 2214) 0.89 MG/DL eGFR AMER. (test code 82 ML/MIN/1.73 = 56451) eGFR NON- AMER. (test 71 ML/MIN/1.73 code = 28052) CALC BUN/CREAT (test code = 24 RATIO 2235) SODIUM (test code = 2231) 140 MEQ/L POTASSIUM (test code = 2228) 4.2 MEQ/L CHLORIDE (test code = 2215) 101 MEQ/L CARBON DIOXIDE (test code = 26 MEQ/L 2205) CALCIUM (test code = 2209) 9.5 MG/DL PROTEIN, TOTAL (test code = 7.2 G/DL 2228) ALBUMIN (test code = 2201) 4.4 G/DL CALC GLOBULIN (test code = 2.8 G/DL 2240) CALC A/G RATIO (test code = 1.6 RATIO 2234) BILIRUBIN, TOTAL (test code = <0.2 MG/DL 2206) ALKALINE PHOSPHATASE (test 59 U/L code = 2204) AST (test code = 2218) 11 U/L ALT (test code = 2219) 10 U/L LIPID [id number] 00:00:00 Test Item Value Reference Range Interpretation Comments CHOLESTEROL (test code = 2210) 189 MG/DL TRIGLYCERIDES (test code = 2232) 78 MG/DL HDL CHOLESTEROL (test code = 2220) 48 MG/DL CALC LDL CHOL (test code = 2237) 125 MG/DL RISK RATIO LDL/HDL (test code = 2.61 RATIO 2238) LIPID [id number] 00:00:00 Test Item Value Reference Range Interpretation Comments CHOLESTEROL (test code = 2210) 189 MG/DL TRIGLYCERIDES (test code = 2232) 78 MG/DL HDL CHOLESTEROL (test code = 2220) 48 MG/DL CALC LDL CHOL (test code = 2237) 125 MG/DL RISK RATIO LDL/HDL (test code = 2.61 RATIO 2238) HEMOGLOBIN [id number] 00:00:00 Test Item Value Reference Range Interpretation Comments HEMOGLOBIN A1c (test code = 23008) 6.5 % HEMOGLOBIN [id number] 00:00:00 Test Item Value Reference Range Interpretation Comments HEMOGLOBIN A1c (test code = 40214) 6.5 % HEMOGLOBIN [id number] 00:00:00 Test Item Value Reference Range Interpretation Comments HEMOGLOBIN A1c (test code = 56190) 6.5 % [id number] 00:00:00 Test Item Value Reference Range Interpretation Comments TSH, THIRD GENERATION (test code 3.650 UIU/ML = 2821) [id number] 00:00:00 Test Item Value Reference Range Interpretation Comments TSH, THIRD GENERATION (test code 3.650 UIU/ML = 2821) [id number] 00:00:00 Test Item Value Reference Range Interpretation Comments TSH, THIRD GENERATION (test code 3.650 UIU/ML = 2821)
[2022-07-20 13:21] LABS: Hematocrit 35.9 % (36.0-45.0); Lymphocytes % 32.2 % (15.3-44.8); MCV 85.5 fL (80-100); MPV 7.7 fL (7.6-11.3)
[2022-07-20] MEDS ORDERED: TETRACAINE HCL 0.5% 4ML OPTH ONE (13:23)
[2022-07-20] MEDS ORDERED: FLUORESCEIN SODIUM 1 MG/WRAP ONE (13:25)
[2022-07-20 13:41] LABS: Potassium 3.6 mmol/L (3.5-5.1)
--- NOTE | 2022-07-20 14:39 | RAD REPORT ---
EXAM DESCRIPTION: CTFacial Bones W Con Mpr07/20/2022 2:17 pm CLINICAL HISTORY: Right facial pain and swelling COMPARISON: None. TECHNIQUE: Computed axial tomography of the face obtained with coronal and sagittal reconstruction. 50 cc [id number] scans are performed using dose optimization technique as appropriate and may include automated exposure control or mA/KV adjustment according to patient size. FINDINGS: Marked right preseptal swelling with increased vascularity. 17 x 3 millimeter fluid collection abuts the anterior aspect of the right globe. The intraorbital fat is clear. Extra-ocular muscles appear unremarkable. Right globe appears unremarkable. The parotid and submandibular glands appear unremarkable. The parapharyngeal fat is clear. Fluid within the sinuses is not noted. Mild opacification of the right mastoids IMPRESSION: Preseptal cellulitis 17 x 3 millimeter fluid collection abuts the anterior aspect of the right globe which may represent p reseptal abscess .
--- NOTE | 2022-07-20 15:03 | EDPHYS ---
Physician Documentation [facility] Name: Deepika Brown Age: 61 yrs Sex: Female : 1960 Arrival Date: 07/20/2022 Time: 12:42 Bed 30 Private MD: Kathleen Jovel ED Physician Chau Fagan HPI: 07/20 12:57 This 61 yrs old Black Female presents to ER via Ambulatory with complaints of Allergy jmm Symptoms, Chest Pain, Headache, Eye Swelling. 12:57 The patient is experiencing pain, The patient sustained. Onset: The symptoms/episode jmm began/occurred gradually, 3 day(s) ago. Duration: the symptoms are continuous. Aggravated by nothing. Alleviated by nothing. Associated signs and symptoms: Pertinent positives:. 61-year-old female with history of diabetes mellitus, hypertension the presents emerged department with complaints of right eyelid swelling been able Beatriz 3 days ago. Also complains of itching and sinus congestion. Denies fever. Historical: - Allergies: 13:02 No Known Allergies; ll1 - Home Meds: 13:16 Metformin Oral [Active]; em6 - PMHx: 13:02 Arthritis; Diabetes - NIDDM; Hypertension; ll1 - PSHx: 13:02 None; ll1 - Immunization history:: Client reports receiving the 2nd dose of the Covid vaccine. - Social history:: Smoking status: Patient denies any tobacco usage or history of. ROS: 12:57 Constitutional: Negative for fever, chills, and weight loss. jmm 12:57 Eyes: Positive for itching, pain, swelling. 12:57 All other systems are negative. Exam: 12:57 Constitutional: This is a well developed, well nourished patient who is awake, alert, jmm and in no acute distress. 12:57 Neck: Trachea midline, Supple Chest/axilla: Normal chest wall appearance and motion. Cardiovascular: Regular rate and rhythm. No edema appreciated Respiratory: Normal respirations, no respiratory distress appreciated Abdomen/GI: Non distended Back: Normal ROM Skin: General appearance color normal MS/ Extremity: Moves all extremities, no obvious deformities appreciated, no edema noted to the lower extremities Neuro: Awake and alert Psych: Behavior is normal, Mood is normal, Patient is cooperative and pleasant 12:57 Head/face: Noted is erythema, swelling, that is moderate, of the right upper eyelid and right lower eyelid. 12:57 Eyes: Conjunctiva: chemosis, that is moderate, in right eye, injected, in the right eye. Vital Signs: 13:02 BP 147 / 73; Pulse 87; Resp 18; Temp 97.4; Pulse Ox 100% ; Weight 107.05 kg; Height 5 ll1 ft. 2 in. (157.48 cm); Pain 8/10; 13:30 BP 107 / 68; Pulse 79; Resp 16; Pulse Ox 96% on R/A; em6 15:00 BP 110 / 83; Pulse 77; Resp 16; Pulse Ox 100% on R/A; em6 16:30 BP 126 / 68; Pulse 75; Resp 18; Pulse Ox 100% on R/A; em6 17:30 BP 129 / 66; Pulse 77; Resp 18; Pulse Ox 100% on R/A; em6 18:33 BP 124 / 72; Pulse 74; Resp 18; Pulse Ox 100% on R/A; em6 13:02 Body Mass Index 43.16 (107.05 kg, 157.48 cm) ll1 MDM: 12:57 Patient medically screened. alf 15:01 Data reviewed: vital signs, nurses notes. Counseling: I had a detailed discussion with gen the patient and/or guardian regarding: the historical points, exam findings, and any diagnostic results supporting the discharge/admit diagnosis, lab results, radiology results, the need for further work-up and treatment in the hospital. ED course: I discussed the patient with Dr. Upton, recommends IV abx. Will consult. I discussed the patient with Grupo, whom accepted the patient to Dr. Bourgeois's service. . 07/20 12:59 Order name: CBC with Diff; Complete Time: 13:28 [facility] 07/20 12:59 Order name: BMP; Complete Time: 13:41 [facility] 07/20 15:15 Order name: SARS RAPID [facility] 07/20 16:08 Order name: SARS-COV-2 Antigen Rapid; Complete Time: 16:10 [facility] 07/20 16:41 Order name: Protime (+INR); Complete Time: 16:42 [facility] 07/20 16:48 Order name: Phosphorus; Complete Time: 16:49 [facility] 07/20 12:59 Order name: Saline Lock; Complete Time: 13:13 [facility] 07/20 13:08 Order name: CT Facial Bones W/ Con \T\ Mpr [facility] 07/20 13:27 Order name: Facial Bones W Con ; Complete Time: 14:45 [facility] 07/20 16:48 Order name: Magnesium; Complete Time: 16:49 [facility] 07/20 18:06 Order name: Glucose, Ancillary Testing; Complete Time: 18:09 [facility] 07/20 12:59 Order name: Eye Tray; Complete Time: 13:27 [facility] 07/20 12:59 Order name: Fluoresene Opth strip; Complete Time: 13:27 [facility] Administered Medications: 15:00 Drug: Tetracaine Drops 0.5 % 1 drops {Note: given by ino HUA.} Route: Ophthalmic; em6 Site: right eye; 15:30 Follow up: Response: No adverse reaction em6 15:46 Drug: Unasyn (ampicillin-sulbactam) 3 grams Route: IVPB; Infused Over: 30 mins; Site: em6 right antecubital; 16:16 Follow up: Response: No adverse reaction; IV Status: Completed infusion; IV Intake: em6 100ml 17:03 Not Given (Physician Discretion): vancoMYCIN 1 grams IVPB once over 2 hrs em6 Disposition: 15:01 Chart complete. [facility] Disposition Summary: 07/20/22 15:03 Hospitalization Ordered Hospitalization Status: Inpatient Admission [facility] Provider: Baltazar Bourgeois Location: Telemetry/MedSur (Inpatient) [facility] Condition: Stable [facility] Problem: new [facility] Symptoms: are unchanged [facility] Bed/Room Type: Standard [facility] Room Assignment: 429(07/20/22 17:30) bd Diagnosis - Right Preseptal Cellulitis [facility] Forms: - Medication Reconciliation Form m - SBAR form [facility] Signatures: Dispatcher [employer] EDMS Carlota Kim Corey, MD MD cha Mickail, Joel, PA PA jmm Marinas, Patrick, SUPERVISOR LACE TEARING SUPERVISOR LACE TEARING pm1 Josué Aguirre RN RN ll1 Fani Newberry RN RN em6 Corrections: (The following items were deleted from the chart) 17:30 15:03 [facility] bd
--- NOTE | 2022-07-20 15:03 | ER ---
Nurse's Notes [facility] Name: Deepika Brown Age: 61 yrs Sex: Female : 1960 Arrival Date: 07/20/2022 Time: 12:42 Bed 30 Private MD: Kathleen Jovel Diagnosis: Right Preseptal Cellulitis Presentation: 07/20 13:02 Chief complaint: Patient states: Congestion, sneezing off/on for 2-3 weeks with PAULINO. R ll1 eye swelling for 3 days. Coronavirus screen: Vaccine status: Patient reports receiving the 2nd dose of the covid vaccine. Client denies travel out of the [place] in the last 14 days. At this time, the client does not indicate any symptoms associated with coronavirus-19. Ebola Screen: Patient denies travel to an Ebola-affected area in the 21 days before illness onset. Onset: The symptoms/episode began/occurred 3 week(s) ago. Anaphylaxis evaluation, no signs or symptoms of anaphylaxis were noted. Initial Sepsis Screen: Does the patient meet any 2 criteria? No. Patient's initial sepsis screen is negative. Does the patient have a suspected source of infection? No. Patient's initial sepsis screen is negative. Risk Assessment: Do you want to hurt yourself or someone else? Patient reports no desire to harm self or others. Onset of symptoms was June 28, 2022. 13:02 Method Of Arrival: Ambulatory ll1 13:02 Acuity: ESME 3 ll1 Triage Assessment: 13:04 General: Appears uncomfortable, ill, Behavior is cooperative, appropriate for age. ll1 Pain: Complains of pain in head Pain currently is 8 out of 10 on a pain scale. Quality of pain is described as aching. EENT: Reports nasal congestion pain in right eye. Neuro: Reports headache. Historical: - Allergies: 13:02 No Known Allergies; ll1 - Home Meds: 13:16 Metformin Oral [Active]; em6 - PMHx: 13:02 Arthritis; Diabetes - NIDDM; Hypertension; ll1 - PSHx: 13:02 None; ll1 - Immunization history:: Client reports receiving the 2nd dose of the Covid vaccine. - Social history:: Smoking status: Patient denies any tobacco usage or history of. Screenin:16 Abuse screen: Denies threats or abuse. Nutritional screening: No deficits noted. em6 Tuberculosis screening: No symptoms or risk factors identified. Fall Risk IV access (20 points). Total Maher Fall Scale indicates No Risk (0-24 pts). Assessment: 13:13 General: Appears uncomfortable, Behavior is cooperative. Pain: Complains of pain in em6 right eye Pain does not radiate. Pain currently is 8 out of 10 on a pain scale. Quality of pain is described as pressure. Neuro: Level of Consciousness is awake, alert, obeys commands, Oriented to person, place, time, situation, Reports headache frontal area. Cardiovascular: Patient's skin is warm and dry. Respiratory: Airway is patent Respiratory effort is even, unlabored, Respiratory pattern is regular, symmetrical, Breath sounds are clear bilaterally. GI: No signs and/or symptoms were reported involving the gastrointestinal system. : No signs and/or symptoms were reported regarding the genitourinary system. EENT: Eyes are tearing on right eye right eye is swollen and tears noted. . Reports nasal congestion and sneezing. Musculoskeletal: Circulation, motion, and sensation intact. Range of motion: intact in all extremities. 14:10 Reassessment: No changes from previously documented assessment. Patient and/or family em6 updated on plan of care and expected duration. Pain level reassessed. Patient is alert, oriented x 3, equal unlabored respirations, skin warm/dry/pink. 15:10 Reassessment: No changes from previously documented assessment. Patient and/or family em6 updated on plan of care and expected duration. Pain level reassessed. Patient is alert, oriented x 3, equal unlabored respirations, skin warm/dry/pink. 16:10 Reassessment: No changes from previously documented assessment. Patient and/or family em6 updated on plan of care and expected duration. Pain level reassessed. Patient is alert, oriented x 3, equal unlabored respirations, skin warm/dry/pink. 17:10 Reassessment: No changes from previously documented assessment. Patient and/or family em6 updated on plan of care and expected duration. Pain level reassessed. Patient is alert, oriented x 3, equal unlabored respirations, skin warm/dry/pink. 18:10 Reassessment: No changes from previously documented assessment. Patient and/or family em6 updated on plan of care and expected duration. Pain level reassessed. Patient is alert, oriented x 3, equal unlabored respirations, skin warm/dry/pink. Vital Signs: 13:02 BP 147 / 73; Pulse 87; Resp 18; Temp 97.4; Pulse Ox 100% ; Weight 107.05 kg; Height 5 ll1 ft. 2 in. (157.48 cm); Pain 8/10; 13:30 BP 107 / 68; Pulse 79; Resp 16; Pulse Ox 96% on R/A; em6 15:00 BP 110 / 83; Pulse 77; Resp 16; Pulse Ox 100% on R/A; em6 16:30 BP 126 / 68; Pulse 75; Resp 18; Pulse Ox 100% on R/A; em6 17:30 BP 129 / 66; Pulse 77; Resp 18; Pulse Ox 100% on R/A; em6 18:33 BP 124 / 72; Pulse 74; Resp 18; Pulse Ox 100% on R/A; em6 13:02 Body Mass Index 43.16 (107.05 kg, 157.48 cm) ll1 ED Course: 12:42 Patient arrived in ED. rg4 12:42 Kathleen Jovel MD is Private Physician. rg4 12:54 [facility]emaker [facility]. jmm 12:54 Chau Fagan MD is Attending Physician. [facility] 13:02 Fani Newberry, FALGUNI is Primary Nurse. em6 13:02 Arm band placed on Patient placed in an exam room, on a stretcher. ll1 13:04 Triage completed. ll1 13:13 Inserted saline lock: 20 gauge in right antecubital area, using aseptic technique. em6 Blood collected. 13:16 Bed in low position. Call light in reach. Side rails up X2. Pulse ox on. NIBP on. Warm em6 blanket given. 14:19 Facial Bones W Con In Process Unspecified. EDMS 15:02 Baltazar Bourgeois MD is Hospitalizing Provider. [facility] 15:46 SARS RAPID Sent. em6 18:33 No provider procedures requiring assistance completed. Patient admitted, IV remains in em6 place. Administered Medications: 15:00 Drug: Tetracaine Drops 0.5 % 1 drops {Note: given by ino HUA.} Route: Ophthalmic; em6 Site: right eye; 15:30 Follow up: Response: No adverse reaction em6 15:46 Drug: Unasyn (ampicillin-sulbactam) 3 grams Route: IVPB; Infused Over: 30 mins; Site: em6 right antecubital; 16:16 Follow up: Response: No adverse reaction; IV Status: Completed infusion; IV Intake: em6 100ml 17:03 Not Given (Physician Discretion): vancoMYCIN 1 grams IVPB once over 2 hrs em6 Medication: 18:34 VIS not applicable for this client. em6 Intake: 16:16 IV: 100ml; Total: 100ml. em6 Outcome: 15:03 Decision to Hospitalize by Provider. jmm 18:33 Admitted to Tele accompanied by tech, via wheelchair, room 429, Report called to em6 mechelle montoya 18:33 Condition: stable 18:33 Instructed on the need for admit, Demonstrated understanding of instructions. 18:34 Patient left the ED. em6 Signatures: Dispatcher [employer] EDMS Gopi Shoemaker PA PA jmm Garcia, Rubi rg4 Josué Aguirre RN RN ll1 Fani Newberry RN RN em6 Corrections: (The following items were deleted from the chart) 15:09 15:08 No provider procedures requiring assistance completed. em6 em6 15:09 15:08 IV discontinued, intact, bleeding controlled, No redness/swelling at site. em6 Pressure dressing applied, em6 15: 15:08 Condition: stable em6 em6 15: 15:08 Discharged to home via wheelchair, em6 em6 15: 15:08 Discharge instructions given to patient, Instructed on discharge instructions, em6 follow up and referral plans. medication usage, Demonstrated understanding of instructions, follow-up care, medications, Prescriptions given X 4, em6 15:10 15:08 VIS not applicable for this client. em6 em6
[2022-07-20] MEDS ORDERED: ONDANSETRON 4 MG/2 ML VIAL IV PRN (15:19)
[2022-07-20] MEDS ORDERED: AMPICILLIN/SULBACTAM 3GM/VIAL ONE (15:21)
[2022-07-20] MEDS ORDERED: VANCOMYCIN 1 GM/VIAL ONE (15:21)
[2022-07-20] MEDS ORDERED: NA CHLORIDE 0.9% 0 ML ONE (15:22)
[2022-07-20] MEDS ORDERED: NA CHLORIDE 0.9% 100 ML IV ONE (15:22)
[2022-07-20] MEDS ORDERED: GLUCAGON 1 MG/VIAL IM PRN (15:23)
[2022-07-20] MEDS ORDERED: D10W 250 ML BAG IV PRN (15:28)
--- NOTE | 2022-07-20 15:37 | P.HP ---
Certification for Inpatient Patient admitted to: Inpatient With expected LOS: >2 Midnights Patient will require the following post-hospital care: None Practitioner: I am a practitioner with admitting privileges, knowledge of patient current condition, hospital course, and medical plan of care. Services: Services provided to patient in accordance with Admission requirements found in Title 42 Section 412.3 of the Code of Federal Regulations Patient History Date of Service: 07/20/22 Reason for admission: Right hand swelling\drainage\redness History of Present Illness: Patient is a 61-year-old female with a past medical history significant for osteoarthritis, DM 2, asthma, hypertension, obesity who presents with complaint of right eyelid swelling\redness. Patient reported that she initially noted redness in her right eye 2 days ago. Patient reported rubbing the eyes due to itching\burning sensation. A day later patient started having increased burning\itching to the right eye. Patient indicated that swelling in her right eyelid become worse over time. Patient also reported associated signs and symptoms of right eye drainage\pain. Patient denies any other signs and symptoms. Symptoms are aggravated or relieved by nothing. Patient decided to present to the hospital due to worsening symptoms. Allergies No Known Allergies Allergy (Unverified 05/14/14 17:21) Home Medications: Hydrocodone 5/APAP 325 [[place] 5/325*] 1 tab PO Q6HP PRN #30 tab 05/15/14 Pantoprazole [Protonix Tab*] 40 mg PO ACB #30 tab 05/15/14 - Past Medical/Surgical History Diabetic: No -: Hypertension -: Asthma -: hysterectomy - Family History Family History: Reviewed- Non-Contributory - Social History Smoking Status: Never smoker Alcohol use: No CD- Drugs: No Caffeine use: Yes Place of Residence: Home Review of Systems General: Unremarkable Eyes: Pain, Eyelid Inflammation, Redness, As per HPI ENT: Unremarkable Respiratory: Unremarkable Cardiovascular: Unremarkable Gastrointestinal: Unremarkable Genitourinary: Unremarkable Musculoskeletal: Unremarkable Integumentary: Unremarkable Neurological: Other (Headache ) Lymphatics: Unremarkable Physical Examination - Physical Exam General: Alert, In no apparent distress, Oriented x3 HEENT: Atraumatic, Mucous membr. moist/pink, Other (Right eye swelling\drainage ) Neck: Supple, 2+ carotid pulse no bruit, No LAD, Without JVD or thyroid abnormality Respiratory: Clear to auscultation bilaterally, Normal air movement Cardiovascular: No edema, Regular rate/rhythm, Normal S1 S2 Capillary refill: <2 Seconds Gastrointestinal: Normal bowel sounds, Soft and benign, No tenderness Musculoskeletal: No clubbing, No tenderness Integumentary: No rashes, No breakdown, No significant lesion Neurological: Normal gait, Normal speech, Normal strength at 5/5 x4 extr, Normal tone, Normal affect Lymphatics: No axilla or inguinal lymphadenopathy - Studies Laboratory Data (last 24 hrs) 07/20/22 13:11: Sodium 139, Potassium 3.6, BUN 19 H, Creatinine 1.10, Glucose 105 07/20/22 13:11: WBC 6.20, Hgb 11.8 L, Hct 35.9 L, Plt Count 252 Assessment and Plan - Plan --Right preseptal cellulitis\abscess. CT facial bones indicates findings compatible with preseptal abscess. Patient placed on antibiotics. Proposal Development Manager and ENT MD consulted. Will await further recommendations. --Headache. Tylenol as needed. --DM2. BS monitoring with sliding scale insulin. --GERD. Continue Protonix. --Acute pain\Osteoarthritis. We will manage pain with current pain medication regimen. --Hypertension. Stable. Continue home medication. --Anemia of chronic disease. H&H stable. We will continue to monitor hemoglobin and transfuse if less than 7.0. --YULIET on CKD 2. Continue p.o. hydration. Will reassess levels in a.m. --Class III obesity. Likely secondary to excess calories intake. Patient counseled on weight reduction, diet and exercise therapy. --Asthma. Stable. Continue home medication. --DVT prophylaxis with heparin subQ Discharge Plan: Home Plan to discharge in: Greater than 2 days - Advance Directives Does patient have a Living Will: No Does patient have a Durable POA for Healthcare: No - Code Status/Comfort Care Code Status Assessed: Yes Code Status: Full Code Physician Review: Patient Assessed, Agree with Above Assessment and Plan Critical Care: No
[2022-07-20] MEDS ORDERED: VANCOMYCIN 3 GM in NA CHLORIDE 0.9% 500 ML IVPB ONE (16:00)
[2022-07-20 16:08] LABS: SARS-CoV-2 Antigen Rapid Res Negative (Negative)
[2022-07-20] MEDS: INSULIN -REGULAR HUMAN 50 UNIT/0.5 ML ML SQ SCH ×2 (16:30→21:00)
[2022-07-20 16:41] LABS: Protime INR 1.03
[2022-07-20 16:48] LABS: Magnesium 2.1 mg/dL (1.8-2.4); Phosphorus 5.3 mg/dL (2.5-4.9)
[2022-07-20 20:46] VITALS: BMI 43.2
[2022-07-20] MEDS: HEPARIN 5000 UNIT/ML 1 ML VIAL SQ SCH (20:49)
[2022-07-20] MEDS: CEFEPIME 1 GM in NA CHLORIDE 0.9% 100 ML IV SCH (20:49)
[2022-07-21] MEDS ORDERED: VANCOMYCIN 1.5 GM in NA CHLORIDE 0.9% 500 ML IVPB SCH (04:00)
[2022-07-21 05:59] LABS: Absolute Lymphocytes (CBC) 1.6 K/uL (0.7-4.9); Hematocrit 32.4 % (36.0-45.0); MCV 85.4 fL (80-100); MPV 8.1 fL (7.6-11.3); RBC Red Blood Cell Count 3.79 M/uL (3.86-4.86)
[2022-07-21 06:09] LABS: Potassium 3.6 mmol/L (3.5-5.1)
[2022-07-21] MEDS ORDERED: POTASSIUM CL SA 10 MEQ TAB PO ONE (06:12)
[2022-07-21] MEDS: INSULIN -REGULAR HUMAN 50 UNIT/0.5 ML ML SQ SCH ×4 (07:30→21:00)
--- NOTE | 2022-07-21 07:58 | P.CNS ---
Date of Consult: 07/21/22 Reason for Consult: Preseptal cellulitis Primary Care Provider: Dr. Jovel Chief Complaint: Right eye and face swelling\drainage\redness History of Present Illness: The patient presented to the emergency room with a 2-day history of swelling around the eye. She was evaluated with CBC and a CT with contrast which demonstrated preseptal cellulitis. She was admitted to the hospitalist service for medical management. Ophthalmology and ENT were consulted. In my discussion with the patient today, she primarily complains of itching of the left ear and nasal drainage which is clear and associated with sneezing. She was evaluated by the soldering machine setter last night. The patient states that she sometimes takes allergy medication which is prescribed by her PCP but she cannot recall the name of the medication. Even when prompted with common antihistamines or leukotrienes receptor antagonists, the names are not familiar to her. Allergies No Known Allergies Allergy (Unverified 05/14/14 17:21) Home Medications: Hydrocodone 5/APAP 325 [[place] 5/325*] 1 tab PO Q6HP PRN #30 tab 05/15/14 Pantoprazole [Protonix Tab*] 40 mg PO ACB #30 tab 05/15/14 - Past Medical/Surgical History Diabetic: No -: Hypertension -: Asthma -: hysterectomy - Family History Father Medical History: Heart disease, Hypertension Mother Medical History: Hypertension, Diabetes - Social History Alcohol use: No CD- Drugs: No Caffeine use: Yes Place of Residence: Home Physical Examination Temp Pulse Resp BP Pulse Ox 97.6 F 94 H 18 118/58 L 95 07/21/22 04:00 07/21/22 04:00 07/21/22 04:00 07/21/22 04:00 07/21/22 04:00 General: Alert, In no apparent distress HEENT: Other (Her external ears are unremarkable, on visual inspection, the left ear canal appears open and there is no pain with movement of the pinna. I am unable to perform an otoscopic exam due to lack of equipment at this time. Her external nose and nares appear patent with no evidence of purulent drainage) Other Physical/Emotional Findings: The upper and lower right eyelids appear swollen with complete closure at rest. There is a small amount of white mucus with some ointment in place. The eyelids are manually opened without significant tenderness, induration or evidence of erythema. The conjunctivia appears injected, the pupil appears reactive, there is no significant chemosis. The extraocular movements appear intact Laboratory Data (last 24 hrs) 07/20/22 13:11: Sodium 139, Potassium 3.6, BUN 19 H, Creatinine 1.10, Glucose 105 07/20/22 13:11: WBC 6.20, Hgb 11.8 L, Hct 35.9 L, Plt Count 252 Imagings Data: I reviewed the radiology report as well as personal review of the CT images. The paranasal sinuses appear completely clear with no evidence of opacification or mucosal swelling. In particular, the ethmoid and maxillary sinuses which abut the orbit appear completely healthy. There is some swelling consistent with her physical exam findings. Conclusions/Impression: Preseptal cellulitis without clinical evidence of abscess on exam today. Patient's complaints are consistent with some allergic rhinitis. I would consider addition of an oral antihistamine if not contraindicated by her other conditions and medications. I do not see any evidence that her ocular findings are secondary to the sinus process. I would defer use of nasal sprays other than saline in light of her acute ocular findings. I would defer management of her orbital condition to ophthalmology but remain available if there are any significant changes or additional ENT concerns.
[2022-07-21] MEDS: PANTOPRAZOLE 40MG TABLET PO SCH (08:49)
[2022-07-21] MEDS: CEFEPIME 1 GM in NA CHLORIDE 0.9% 100 ML IV SCH ×2 (08:50→21:27)
[2022-07-21] MEDS: HEPARIN 5000 UNIT/ML 1 ML VIAL SQ SCH ×2 (08:50→21:27)
[2022-07-21] MEDS: ASPIRIN EC 81 MG TAB PO SCH (08:50)
[2022-07-21] MEDS: HYDROCODONE/APAP 5/325 MG TAB PO PRN (13:07)
[2022-07-21] MEDS ORDERED: VANCOMYCIN 2 GM in NA CHLORIDE 0.9% 500 ML IVPB SCH (16:00)
[2022-07-21 16:29] LABS: Specific Gravity 1.023 (1.005-1.030); Urine Bilirubin NEGATIVE (Negative); Urine Blood Negative (Negative); Urine Clarity Clear (Clear); Urine Color Light-Yellow (Yellow); Urine Glucose NEGATIVE (Negative); Urine Protein NEGATIVE (Negative); Urine Urobilinogen Normal (Normal); Urine pH 5.5 (5.0-7.0)
[2022-07-22] MEDS: INSULIN -REGULAR HUMAN 50 UNIT/0.5 ML ML SQ SCH ×4 (07:30→20:13)
--- NOTE | 2022-07-22 07:53 | CON ---
History Of Present Illness: This is a 61-year-old female. I was consulted for evaluation of right p reorbital cellulitis. The patient has significant past medical history of diabetes mellitus, asthma, osteoarthritis, hypertension, morbid obesity, coming in with right eye swelling and redness and incr eased warmth and tenderness of 2 days. The patient complains of itching and burning sensation and so me discharge from her right eye, which has become worse prior to admission. The patient feels slight ly better today. Denies any other problems. Currently being treated with cefepime and vancomycin. CT scan showing patient has preseptal cellulitis. Past Medical History: Hypertension, asthma, hysterectomy, diabetes mellitus, osteoarthritis, morbid obesity. Social History: Nonsmoker, nondrinker. Family History: Noncontributory. Medications: Cefepime and vancomycin. See MARS for other medications. Allergies: NO KNOWN DRUG ALLERGIES. Review of Systems: A 10-point review was performed. Physical Examination: General: This is a 61-year-old female, lying in bed, not in any acute cardiopulmonary distress. Vital Signs: Temperature 97.5, pulse 76, respirations 17, blood pressure 108/65. HEENT: Right periseptal and orbital areas edematous changes noted with increased warmth and tenderne ss. No scleral redness noted at this time. Neck: Supple. No JVD. No lymphadenopathy. Lungs: Basal crackles. Heart: S1, S2 regular. Abdomen: Soft, nontender. Bowel sounds present. Extremities: Trace edema. Laboratory Data: Shows WBC 5.4, hemoglobin 10.5, platelets are 226. Chemistry shows sodium 139, pot assium 3.6, chloride 106, bicarb 27, BUN 16, creatinine 0.9, glucose is 118. UA is negative. No ezequiel ro data is available. Assessment And Plan: Right septal cellulitis, rule out periorbital cellulitis. Continue vancomycin and cefepime. Anemia of chronic disease and diabetes mellitus. We will follow the patient closely a nd monitor patient for signs of infection with WBC and fever trends. Thank you Dr. Bourgeois for consult. NF/MODL Voice ID: [id number] Report ID: [id number]
[2022-07-22] MEDS ORDERED: VANCOMYCIN 1 GM in NA CHLORIDE 0.9% 250 ML IVPB SCH (08:50)
[2022-07-22] MEDS: HEPARIN 5000 UNIT/ML 1 ML VIAL SQ SCH ×2 (08:54→20:13)
[2022-07-22] MEDS: ASPIRIN EC 81 MG TAB PO SCH (08:54)
[2022-07-22] MEDS: PANTOPRAZOLE 40MG TABLET PO SCH (08:54)
[2022-07-22] MEDS: CEFEPIME 1 GM in NA CHLORIDE 0.9% 100 ML IV SCH (08:55)
[2022-07-22] MEDS: VANCOMYCIN 2 GM in NA CHLORIDE 0.9% 500 ML IVPB SCH (10:26)
[2022-07-22] MEDS: METHYLPREDNISOLONE 40 MG INJ IV SCH ×2 (11:51→17:09)
--- NOTE | 2022-07-22 16:20 | P.PN ---
Date of Service: 07/21/22 Subjective Right eyes still swollen. Difficulty opening it. Minimal improvement. Repeat imaging after 48 hours to assess cellulitis Physical Examination - Physical Exam General: Alert, In no apparent distress, Oriented x3 HEENT: Atraumatic, Mucous membr. moist/pink, Other (Right eye swelling\drainage ) Respiratory: Clear to auscultation bilaterally, Normal air movement Cardiovascular: No edema, Regular rate/rhythm, Normal S1 S2 Gastrointestinal: Normal bowel sounds, Soft and benign, No tenderness Musculoskeletal: No clubbing, No tenderness Integumentary: No rashes, No breakdown, No significant lesion Neurological: No focal deficits Assessment and Plan - Plan --Right preseptal cellulitis\abscess. CT facial bones indicates findings compatible with preseptal abscess. Patient placed on antibiotics. O phthalmologist and ENT MD consulted. Will await further recommendations. Clinically, patient does not appear to have an abscess. However imaging studies indicated that there may be an abscess. We will repeat this in 48 to 72 hours --Headache. Tylenol as needed. --DM2. BS monitoring with sliding scale insulin. --GERD. Continue Protonix. --Acute pain\Osteoarthritis. Continue supportive care --Hypertension. Stable. Continue home medication. --Anemia of chronic disease. Monitor H&H --YULIET on CKD 2. Continue p.o. hydration. Will reassess levels in a.m. --Class III obesity. Outpatient follow-up --Asthma. Stable. Continue home medication. --DVT prophylaxis with heparin subQ
--- NOTE | 2022-07-22 16:33 | P.PN ---
Date of Service: 07/22/22 Subjective pt continues to have improvement. Continue with antibiotic therapy. Physical Examination - Physical Exam General: AAOriented x3 HEENT: Atraumatic, Mucous membr. moist/pink, Other (Right eye swelling\drainage- improved) Respiratory: Clear to auscultation bilaterally Cardiovascular: Regular rate/rhythm, Normal S1 S2 Gastrointestinal: Normal bowel sounds, Soft and benign, No tenderness Integumentary: No rashes, No breakdown, No significant lesion; facial/periorbital cellulitis Neurological: No focal deficits Assessment and Plan - Plan --Right preseptal cellulitis\abscess. Clinically, patient continues to improve. Continue with antibiotic therapy. I will repeat CT imaging in the morning. --Headache. Tylenol as needed. --DM2. BS monitoring with sliding scale insulin. --GERD. Continue Protonix. --Acute pain\Osteoarthritis. Continue supportive care --Hypertension. Stable. Continue home medication. --Anemia of chronic disease. Monitor H&H --YULIET on CKD 2. Continue p.o. hydration. Will reassess levels in a.m. --Class III obesity. Outpatient follow-up --Asthma. Stable. Continue home medication. --DVT prophylaxis with heparin subQ
[2022-07-22] MEDS: CEFEPIME 2 GM in NA CHLORIDE 0.9% 100 ML IV SCH (20:12)
[2022-07-22 21:06] VITALS: O2SAT 96
[2022-07-23] MEDS: HYDROCODONE/APAP 5/325 MG TAB PO PRN (06:05)
[2022-07-23] MEDS: INSULIN -REGULAR HUMAN 50 UNIT/0.5 ML ML SQ SCH ×3 (07:30→16:30)
[2022-07-23 08:56] LABS: Absolute Lymphocytes (CBC) 1.7 K/uL (0.7-4.9); Hematocrit 31.9 % (36.0-45.0); Lymphocytes % 11.5 % (15.3-44.8); MCV 85.4 fL (80-100); MPV 7.9 fL (7.6-11.3); RBC Red Blood Cell Count 3.74 M/uL (3.86-4.86)
[2022-07-23] MEDS ORDERED: NA CHLORIDE 0.9% 100 ML ONE (08:56)
[2022-07-23] MEDS ORDERED: CEFEPIME 2 GM VIAL ONE (09:01)
[2022-07-23] MEDS: HEPARIN 5000 UNIT/ML 1 ML VIAL SQ SCH (09:03)
[2022-07-23] MEDS: CEFEPIME 2 GM in NA CHLORIDE 0.9% 100 ML IV SCH (09:03)
[2022-07-23] MEDS: ASPIRIN EC 81 MG TAB PO SCH (09:03)
[2022-07-23 09:13] LABS: Albumin 3.1 g/dL (3.4-5.0); Bilirubin Total 0.2 mg/dL (0.2-1.0); Magnesium 2.3 mg/dL (1.8-2.4); Potassium 3.9 mmol/L (3.5-5.1); Protein, Total 7.1 g/dL (6.4-8.2)
--- NOTE | 2022-07-23 11:05 | RAD REPORT ---
EXAM DESCRIPTION: CT - CTFB CLINICAL HISTORY: evaluate septal cellulitis Orbital infection, pain and swelling COMPARISON: Facial Bones W Con Mpr dated 07/20/2022 TECHNIQUE: Axial 2 mm thick images of the face were obtained with sagittal and coronal reconstructio n images. All CT scans are performed using dose optimization technique as appropriate and may include automated exposure control or mA/KV adjustment according to patient size. FINDINGS: There has been significant improvement seen in the inflammatory changes in right preseptal and periorbital region since 07/20/2022. The previously noted enhancing crescentic collection anteri or to the right globe appears significantly smaller in size. A small amount of fluid persists along t he lateral margin of the right lobe with mild thickening soft tissues. No vitreous abnormality. No si gnificant proptosis. No abnormality in the retro-conal fat bilaterally. Left orbit and globe is unremarkable. Skullbase is intact. IMPRESSION: There has been significant improvement in the right-sided orbital and preseptal inflamma tion infection findings since 07/20/2022.
[2022-07-23] MEDS: VANCOMYCIN 2 GM in NA CHLORIDE 0.9% 500 ML IVPB SCH (11:22)
[2022-07-23] MEDS: PANTOPRAZOLE 40MG TABLET PO SCH (11:23)
--- NOTE | 2022-07-23 15:08 | PN ---
Subjective: Patient is lying in bed. No new acute event. Complains of frontal headache. No nausea , vomiting, chest pain, abdominal pain, constipation. Able to open her eyes much better. Objective: Vital Signs: Temperature 97, pulse 84, respirations 18, blood pressure 140/64. Lungs: Clear to auscultation. Heart: S1, S2. Regular. Abdomen: Soft, nontender. Bowel sounds present. Extremities: No edema. Laboratory Data: CT examination of the facial bones shows significant improvement in the right-sided orbital and preseptal inflammatory infection finding since 07/20. Assessment And Plan: Preseptal abscess formation, improving. Continue empiric antibiotic with vanco mycin and cefepime. Leukocytosis, anemia of chronic disease. Continue supportive care. We will fol low the patient as needed. NF/MODL Voice ID: [id number] Report ID: [id number]
[2022-07-23 16:41] VITALS: BP 133/71; TEMP 98.2
[2022-07-23] MEDS ORDERED: CEFEPIME 1 GM in NA CHLORIDE 0.9% 100 ML IV SCH (17:00)
== END 2022-07-23 18:45 | disposition home or self-care (01) | DRG 603 ==
LOC: ER 12:39 → ERHOLD 15:10 → 4TH 18:14
PROVIDERS: ADMIT Hospitalist; ATTEND Hospitalist
DX: L03.213 Periorbital cellulitis (principal); Z68.41 Body mass index [BMI] 40.0-44.9, adult; N17.9 Acute kidney failure, unspecified; E66.01 Morbid (severe) obesity due to excess calories; K21.9 Gastro-esophageal reflux disease without esophagitis; I12.9 Hypertensive chronic kidney disease with stage 1 through stage 4 chronic kidney disease, or unspecified chronic kidney disease; N18.2 Chronic kidney disease, stage 2 (mild); E11.22 Type 2 diabetes mellitus with diabetic chronic kidney disease; D63.1 Anemia in chronic kidney disease; M19.90 Unspecified osteoarthritis, unspecified site; D63.8 Anemia in other chronic diseases classified elsewhere; H00.033 Abscess of eyelid right eye, unspecified eyelid; J45.909 Unspecified asthma, uncomplicated; D72.829 Elevated white blood cell count, unspecified; R51.9 Headache, unspecified; Z79.84 Long term (current) use of oral hypoglycemic drugs; Z90.710 Acquired absence of both cervix and uterus; Z79.899 Other long term (current) drug therapy; Z20.822 Contact with and (suspected) exposure to COVID-19
CPT/HCPCS: 36415; 70486; 70487; 76377; 80048; 80053; 80202; 81003; 82947; 83735; 84100; 85025; 85610; 87811; 96365; 99285; J0295; J0692; J1644; J2920; J3370; J7040; J7050; Q9967

== ENCOUNTER 2022-08-29 19:31 | Emergency (ER) | payer MEDICARE ==
--- OUTSIDE RECORDS SUMMARY | 2022-08-29 19:36 | XMS REPORT | Continuity of Care Document ---
:1960 Author Organization [facility] t Address [address] [place] [address] Care Team Providers Name Role Phone Aileen HOLLINS, [facility] Primary Care Physician [phone] Arin Carrasquillo Attending Clinician Unavailable OWENS_T Attending Clinician Unavailable QUINTON HOOPER Attending Clinician Unavailable RAFAEL TAVERAS Attending Clinician Unavailable Ro Christianson Attending Clinician Doctor Unassigned, [place] Attending Clinician Unavailable ROLA MCNEILL Attending Clinician Unavailable Rola Mcneill MD Attending Clinician Kathleen Jovel Admitting Clinician Unavailable OWENS_T Admitting Clinician Unavailable Payers Payer Name Policy Type Policy Number Effective Date Expiration Date jase [facility] 2021 (MEDICARE 00:00:00 REPLACEMENT HMO) Problems This patient has no known problems. Allergies, Adverse Reactions, Alerts Allergy Allergy Status Severity Reaction(s) Onset Inactive Treating Comm ents Source Name Type Date Date Clinician NO KNOWN Drug Active Univers [facility] Medications Ordered Filled Start Stop Current Ordering Indication Dosage Frequency Signature Comments Components Source Medication Medication Date Date Medication? Clinician (SIG) Name Name TAKE 1 2021-0 No TABLET BY 9-13 MOUTH EVERY 00:00: 6 TO 8 00 HOURS NEEDED FOR PAIN TAKE 1 2021-0 No TABLET BY 9-13 MOUTH EVERY 00:00: 6 TO 8 00 HOURS NEEDED FOR PAIN naproxen 2-0 No 1mg 500 mg 2-07 tablet 00:00: 00 gabapentin 2022-0 No 2mg 100 mg 2-07 capsule 00:00: 00 naproxen 2022-0 No 1mg 500 mg 2-07 tablet 00:00: 00 gabapentin 2-0 No 2mg 100 mg 2-07 capsule 00:00: 00 valsartan 1-0 No 1mg 40 mg 8-04 tablet 00:00: 00 allopurinol 2021-0 No 1mg 100 mg 8-04 tablet 00:00: 00 Dose 2021-0 No Unknown 8-04 00:00: 00 Dose 2021-0 No Unknown 8-04 00:00: 00 metformin 1-0 No 1mg ER 500 mg 8-04 24 hr 00:00: tablet,exte 00 nded release (gastric) gabapentin 1-0 No 1mg 100 mg 8-04 capsule 00:00: 00 valsartan 1-0 No 1mg 40 mg 8-04 tablet 00:00: 00 allopurinol 2021-0 No 1mg 100 mg 8-04 tablet 00:00: 00 Dose 2021-0 No Unknown 8-04 00:00: 00 Dose 2021-0 No Unknown 8-04 00:00: 00 metformin 1-0 No 1mg ER 500 mg 8-04 24 hr 00:00: tablet,exte 00 nded release (gastric) gabapentin 1-0 No 1mg 100 mg 8-04 capsule 00:00: [...] 1mg 100 mg 8-03 capsule 00:00: 00 valsartan 2020-0 No 1mg [...] 1mg 100 mg 5-21 capsule 00:00: 00 terbinafine 2020-0 No 1% [...] 24 hr 00:00: tablet,exte 00 nded release metformin 2020-0 No 1mg ER 500 mg 2-14 24 hr 00:00: tablet,exte 00 nded release valsartan 2020-0 No 1mg 40 mg 2-13 tablet 00:00: 00 allopurinol 2020-0 No 1mg 100 mg 2-13 tablet 00:00: 00 meloxicam 2020-0 No 1mg 7.5 mg 2-13 tablet 00:00: 00 valsartan 2020-0 No 1mg 40 mg 2-13 tablet 00:00: 00 allopurinol 2020-0 No 1mg 100 mg 2-13 tablet 00:00: 00 meloxicam 2020-0 No 1mg 7.5 mg 2-13 tablet 00:00: 00 furosemide 2020-0 No 1mg 20 mg 2-13 tablet 00:00: 00 gabapentin 2020-0 No 1mg 100 mg 2-13 capsule 00:00: 00 furosemide 2020-0 No 1mg 20 mg 2-13 tablet 00:00: 00 gabapentin 2020-0 No 1mg 100 mg 2-13 capsule 00:00: 00 valsartan 2020-0 No 1mg 40 mg 2-04 tablet 00:00: 00 valsartan 2020-0 No 1mg 40 [...] 00:00: orothiazide 00 25 mg tablet meloxicam 2019-1 No 1mg 7.5 mg 2-16 tablet 00:00: 00 amlodipine 2019-1 No 1mg 10 mg 2-16 tablet 00:00: 00 meloxicam 2019-1 No 1mg 7.5 mg 2-16 tablet 00:00: 00 allopurinol 2019-1 No 1mg 100 mg 2-16 tablet 00:00: 00 furosemide 2019-1 No 1mg 20 mg 2-16 tablet 00:00: 00 tramadol 50 2019-1 No 1mg mg tablet 2-16 00:00: 00 gabapentin 2019-1 No 1mg 100 mg 2-16 capsule 00:00: 00 gabapentin 2019-1 No 1mg 100 mg 2-16 capsule 00:00: 00 allopurinol 2019-1 No 1mg 100 mg 2-16 tablet 00:00: 00 losartan 2019-1 No 1mg 100 2-16 mg-hydrochl 00:00: orothiazide 00 25 mg tablet meloxicam 2018- No 1mg 7.5 mg 2-16 tablet 00:00: 00 amlodipine 2018- No 1mg 10 mg 2-16 tablet 00:00: 00 meloxicam 2018- No 1mg 7.5 mg 2-16 tablet 00:00: 00 allopurinol 2018- No 1mg 100 mg 2-16 tablet 00:00: 00 furosemide 2018- No 1mg 20 mg 2-16 tablet 00:00: 00 Immunizations Ordered Immunization Filled Immunization Date Status Commen ts Source Name Name Jamel CHRIS-19 2021-11-25 Completed Vaccine 00:00:00 Jamel COVID-19 2021-11-25 Completed Vaccine 00:00:00 Jamel CHAOID-19 2021-04-30 Completed Vaccine 00:00:00 Jamel COVID-19 2021-04-30 Completed Vaccine 00:00:00 Jamel COVID-19 2021-03-31 Completed Vaccine 00:00:00 Jamel COVID-19 2021-03-31 Completed Vaccine 00:00:00 Vital Signs Vital Name Observation Time Observation Value Comments Source BP Systolic 2022-08-04 10:20:00 115 mm[Hg] BP Diastolic 2022-08-04 10:20:00 74 mm[Hg] Weight Measured 2022-08-04 10:20:00 233.40 pounds Height Measured 2022-08-04 10:20:00 62.40 inches Body Temperature 2022-08-04 10:20:00 98.20 degrees Heart Rate 2022-08-04 10:20:00 89.00 /min Respiratory Rate 2022-08-04 10:20:00 18.00 /min BP Systolic 2022-07-07 10:52:00 128 mm[Hg] BP [...] Goal Plan of Care Note [code = 27350-6] Goal Plan of Care Note [code = 81317-6] Goal Plan of Care Note [code = 74080-5] Goal Plan of Care Note [code = 01252-5] Goal Plan of Care Note [code = 07783-0] Goal Plan of Care Note [code = 01418-8] Goal Plan of Care Note [code = 65828-8] Goal Plan of Care Note [code = 17818-6] Goal Plan of Care Note [code = 01959-5] Goal Plan of Care Note [code = 11749-6] Goal Plan of Care Note [code = 58146-3] Goal Plan of Care Note [code = 14812-7] Goal Plan of Care Note [code = 77600-7] Goal Plan of Care Note [code = 36402-5] Goal Plan of Care Note [code = 85187-4] Goal Plan of Care Note [code = 39922-3] Goal Plan of Care Note [code = 96254-3] Goal Plan of Care Note [code = 65002-2] Goal Plan of Care Note [code = 61459-3] Goal Plan of Care Note [code = 73228-6] Goal Plan of Care Note [code = 69507-9] Goal Plan of Care Note [code = 38544-1] Goal Plan of Care Note [code = 83971-7] Goal Plan of Care Note [code = 41167-2] Goal Plan of Care Note [code = 91390-9] Goal Plan of Care Note [code = 58352-8] Goal Plan of Care Note [code = 70013-3] Goal Plan of Care Note [code = 29096-7] Goal Plan of Care Note [code = 39613-5] Goal Plan of Care Note [code = 38141-1] Goal Plan of Care Note [code = 94248-2] Goal Plan of Care Note [code = 98060-4] Goal Plan of Care Note [code = 79781-1] Encounters Start End Encounter Admission Attending Care Care Encounter Source Date/Time Date/Time Type Type Clinicians Facility Department ID 2021-08-01 Emergency [facility] [id number] Univers 12:56:46 [facility] 2022-08-04 2022-08-04 Outpatient [facility] KIM [id number] Manny 10:02:36 10:02:36 1102 F Gerardo 2022-08-04 2022-08-04 Outpatient [id number] 00:00:00 00:00:00 Visit 732a-476a 32a-476a-a -d1w6-806 [id number] 2022-07-07 2022-07-07 Outpatient [facility] KIM [id number] Manny 10:38:04 10:38:04 1005 F Gerardo 2022-07-07 2022-07-07 Outpatient [id number] 00:00:00 00:00:00 Visit 2fed-48e7 fed-48e7-b -uc4h-6bh [id number] [id number] 0000-09-02 2022-06-04 Outpatient Arin Guaman [facility] LA0 [id number] [facility] 08:00:00 08:00:00 86 [facility] 2022-06-03 2022-06-03 Outpatient Arin Guaman [facility] LA0 [id number] [facility] 11:16:00 11:16:00 99 [facility] 2022-04-16 2022-04-16 Outpatient OWENS_T DMSonido JIM [id number] [facility] 06:14:00 06:14:00 [facility] 2021-10-07 2021-10-07 Outpatient OWENS_T DIANDRA HUTCHISONG [id number] [facility] 05:50:00 05:50:00 0105 [facility] 2021-09-03 2021-09-03 [facility] [id number] [facility] 08:02:00 08:02:00 1202 [facility] 2021-04-16 2021-04-16 Outpatient DMG [facility] [id number] [facility] 12:00:00 12:00:00 0715 [facility] 2021-01-06 2021-01-06 Outpatient Aline HOOPER [facility] [id number] Univers 11:15:00 11:15:00 QUINTON margot [facility] 2020-12-02 2020-12-02 Outpatient R RUFUS [facility] [id number] Univers 15:30:00 15:30:00 QUINTON [facility] 2020-10-28 2020-10-28 [facility] [id number] Univers 13:00:00 13:00:00 [facility] 2020-10-23 2020-10-23 [facility] [id number] Univers 13:00:00 13:00:00 RAFAEL [facility] 2020-09-24 2020-09-24 Emergency [facility] [id number] 10:59:00 13:13:00 Ro Jackson 350.1.13.10 [place] 4.2.7.2.686 [place] [id number] 2020-09-24 2020-09-24 Orders Doctor AZEEM [id number] 00:00:00 00:00:00 Only Unassigned, HIWOT 350.1.13.10 [place] [facility] 4.2.7.2.686 [id number] 2020-02-28 2020-02-28 [facility] [id number] Univers 14:15:00 14:15:00 ROLA margot [facility] 2020-02-28 2020-02-28 [facility] [id number] 13:42:58 14:02:55 Visit [facility] 350.1.13.10 Surgical 4.2.7.2.686 [facility] [id number] kourtney Jackson Results Test Description Test Time Test Comments Results Result Comments Source HEMOGLOBIN A1c 2022-07-08 05:10:16 Test Item Value Reference Range Interpretation Comme nts HEMOGLOBIN A1c (test code = 6.7 % 4.2-5.6 H [employer] 88182) GUIDELINES FOR HGB A1C: PREDIABETES/INC REASED RISK [...] ALTERNATE TESTING OR LABORATORY C ONSULTATION. LIPID [id number] 03:29:16 Test Item Value Reference Range Interpretation [...] MOREINFORMATION , SEE CLIENT ANNOUNCE MENT AT [email or web address] RISK RATIO LDL/HDL 2.98 RATIO <3.22 UNLESS O THERWISE (test code = 2238) INDICATED , ALL TESTING PERFORMED [facility], [place] [place] [address] [facility] DIRECTOR: SATNAM AVENDANO M.D. CLIA NUMBER [id number] CAP ACCREDITATION N O. [id number] HEMOGLOBIN [id number] 00:00:00 Test Item Value Reference Range Interpretation Comments HEMOGLOBIN A1c (test code = 40709) 6.7 % HEMOGLOBIN [id number] 00:00:00 Test Item Value Reference Range Interpretation Comments HEMOGLOBIN A1c (test code = 76899) 6.7 % HEMOGLOBIN [id number] 00:00:00 Test Item Value Reference Range Interpretation Comments HEMOGLOBIN A1c (test code = 22103) 6.7 % LIPID [id number] 00:00:00 Test Item Value Reference Range Interpretation Comments CHOLESTEROL (test code = 2210) 229 MG/DL TRIGLYCERIDES (test code = 2232) 139 MG/DL HDL CHOLESTEROL (test code = 2220) 51 MG/DL CALC LDL CHOL (test code = 2237) 152 MG/DL RISK RATIO LDL/HDL (test code = 2.98 RATIO 2238) LIPID [id number] 00:00:00 Test Item Value Reference Range Interpretation Comments CHOLESTEROL (test code = 2210) 229 MG/DL TRIGLYCERIDES (test code = 2232) 139 MG/DL HDL CHOLESTEROL (test code = 2220) 51 MG/DL CALC LDL CHOL (test code = 2237) 152 MG/DL RISK RATIO LDL/HDL (test code = 2.98 RATIO 2238) HEMOGLOBIN [id number] 00:00:00 Test Item Value Reference Range Interpretation Comments HEMOGLOBIN A1c (test code = 72067) 6.7 % HEMOGLOBIN [id number] 00:00:00 Test Item Value Reference Range Interpretation Comments HEMOGLOBIN A1c (test code = 88976) 6.7 % HEMOGLOBIN [id number] 00:00:00 Test Item Value Reference Range Interpretation Comments HEMOGLOBIN A1c (test code = 24024) 6.7 % LIPID [id number] 00:00:00 Test Item Value Reference Range Interpretation Comments CHOLESTEROL (test code = 2210) 229 MG/DL TRIGLYCERIDES (test code = 2232) 139 MG/DL HDL CHOLESTEROL (test code = 2220) 51 MG/DL CALC LDL CHOL (test code = 2237) 152 MG/DL RISK RATIO LDL/HDL (test code = 2.98 RATIO 2238) LIPID [id number] 00:00:00 Test Item Value Reference Range Interpretation Comments CHOLESTEROL (test code = 2210) 229 MG/DL TRIGLYCERIDES (test code = 2232) 139 MG/DL HDL CHOLESTEROL (test code = 2220) 51 MG/DL CALC LDL CHOL (test code = 2237) 152 MG/DL RISK RATIO LDL/HDL (test code = 2.98 RATIO 2238) - PELVIC [id number] 14:49:00 [facility] : 1960 Sex: F Name: WEI BROWN [facility] : 1960 Age/S: 61 / F [id number] [address] Unit #: [id number] Loc: [place] [address] Phys: Arin Carrasquillo MD Acct: [id number] Dis Date: Status: REG CLI PHONE #: [phone] Exam Date: 06/03/2022 1300 FAX #: Reason: Hx of Ovarian Cyst EXAMS: CPT: [id number] US PELV IC COMPLETE 69480 HISTORY: Pain. History of ovarian cyst Location Code: B2 TECHNIQUE: Multiple transverse and longitudinal sonographic images were obtained. FINDINGS: The uterus is surgically absent. The ovaries are not well visualized bilaterally. No suspicious adnexal masses are seen. There is no free fluid in the cul-de-sac. IMPRESSION: 1. Nonvisualization of the ovaries. No suspicious adnexal masses. 2. Surgically absent uterus at 1440 Reported and signed by: Jared Burris M.D. CC: Arin Carrasquillo MD; Kathleen Jovel DO Technologist: Lavonne Gill Rustb Date/Time: 06/03/2022 (8363) [email or web address] PAGE 1 Signed Report Name: WEI BROWN [place] : 1960 Age/S: 61 / F [address] [address] Unit #: [id number] Loc: [place] [address] Phys: Arin Carrasquillo MD Acct: [id number] Dis Date: Status: REG CLI PHONE #: [phone] Exam Date: 06/03/2022 1300 FAX #: Reason: Hx of Ovarian Cyst EXAMS: CPT: [id number] US PELVIC COMPLETE 38513 (Cont inued) Orig Print D/T: S: 06/03/2022 (4362) Probe: PAGE 2 Signed Report HEMOGLOBIN [id number] 00:00:00 Test Item Value Reference Range Interpretation Comments HEMOGLOBIN A1c (test code = 15978) 6.5 % HEMOGLOBIN [id number] 00:00:00 Test Item Value Reference Range Interpretation Comments HEMOGLOBIN A1c (test code = 25684) 6.5 % HEMOGLOBIN [id number] 00:00:00 Test Item Value Reference Range Interpretation Comments HEMOGLOBIN A1c (test code = 86948) 6.5 % HEMOGLOBIN [id number] 00:00:00 Test Item Value Reference Range Interpretation Comments HEMOGLOBIN A1c (test code = 68366) 6.5 % HEMOGLOBIN [id number] 00:00:00 Test Item Value Reference Range Interpretation Comments HEMOGLOBIN A1c (test code = 59357) 6.5 % HEMOGLOBIN [id number] 00:00:00 Test Item Value Reference Range Interpretation Comments HEMOGLOBIN A1c (test code = 05429) 6.5 % HEMOGLOBIN [id number] 00:00:00 Test Item Value Reference Range Interpretation Comments HEMOGLOBIN A1c (test code = 06204) 6.4 % HEMOGLOBIN [id number] 00:00:00 Test Item Value Reference Range Interpretation Comments HEMOGLOBIN A1c (test code = 06328) 6.4 % HEMOGLOBIN [id number] 00:00:00 Test Item Value Reference Range Interpretation Comments HEMOGLOBIN A1c (test code = 56763) 6.4 % LIPID [id number] 00:00:00 Test Item Value Reference Range Interpretation Comments CHOLESTEROL (test code = 2210) 193 MG/DL TRIGLYCERIDES (test code = 2232) 105 MG/DL HDL CHOLESTEROL (test code = 2220) 48 MG/DL CALC LDL CHOL (test code = 2237) 124 MG/DL RISK RATIO LDL/HDL (test code = 2.58 RATIO 2238) LIPID [id number] 00:00:00 Test Item Value Reference Range Interpretation Comments CHOLESTEROL (test code = 2210) 193 MG/DL TRIGLYCERIDES (test code = 2232) 105 MG/DL HDL CHOLESTEROL (test code = 2220) 48 MG/DL CALC LDL CHOL (test code = 2237) 124 MG/DL RISK RATIO LDL/HDL (test code = 2.58 RATIO 2238) HEMOGLOBIN [id number] 00:00:00 Test Item Value Reference Range Interpretation Comments HEMOGLOBIN A1c (test code = 76463) 6.4 % HEMOGLOBIN [id number] 00:00:00 Test Item Value Reference Range Interpretation Comments HEMOGLOBIN A1c (test code = 67340) 6.4 % HEMOGLOBIN [id number] 00:00:00 Test Item Value Reference Range Interpretation Comments HEMOGLOBIN A1c (test code = 74496) 6.4 % LIPID [id number] 00:00:00 Test Item Value Reference Range Interpretation Comments CHOLESTEROL (test code = 2210) 193 MG/DL TRIGLYCERIDES (test code = 2232) 105 MG/DL HDL CHOLESTEROL (test code = 2220) 48 MG/DL CALC LDL CHOL (test code = 2237) 124 MG/DL RISK RATIO LDL/HDL (test code = 2.58 RATIO 2238) LIPID [id number] 00:00:00 Test Item Value Reference Range Interpretation Comments CHOLESTEROL (test code = 2210) 193 MG/DL TRIGLYCERIDES (test code = 2232) 105 MG/DL HDL CHOLESTEROL (test code = 2220) 48 MG/DL CALC LDL CHOL (test code = 2237) 124 MG/DL RISK RATIO LDL/HDL (test code = 2.58 RATIO 2238) COMPREHENSIVE METABOLIC [id number] 00:00:00 Test Item Value Reference Range Interpretation Comments GLUCOSE (test code = 2217) 101 MG/DL BUN (test code = 2208) 21 MG/DL CREATININE (test code = 2214) 0.89 MG/DL eGFR AMER. (test code 82 ML/MIN/1.73 = 88237) eGFR NON- AMER. (test 71 ML/MIN/1.73 code = 86173) CALC BUN/CREAT (test code = 24 RATIO 2235) SODIUM (test code = 2231) 140 MEQ/L POTASSIUM (test code = 2228) 4.2 MEQ/L CHLORIDE (test code = 2215) 101 MEQ/L CARBON DIOXIDE (test code = 26 MEQ/L 2205) CALCIUM (test code = 2209) 9.5 MG/DL PROTEIN, TOTAL (test code = 7.2 G/DL 2229) ALBUMIN (test code = 2201) 4.4 G/DL CALC GLOBULIN (test code = 2.8 G/DL 2240) CALC A/G RATIO (test code = 1.6 RATIO 2234) BILIRUBIN, TOTAL (test code = <0.2 MG/DL 2207) ALKALINE PHOSPHATASE (test 59 U/L code = 2204) AST (test code = 2218) 11 U/L ALT (test code = 2219) 10 U/L COMPREHENSIVE METABOLIC [id number] 00:00:00 Test Item Value Reference Range Interpretation Comments GLUCOSE (test code = 2217) 101 MG/DL BUN (test code = 2208) 21 MG/DL CREATININE (test code = 2214) 0.89 MG/DL eGFR AMER. (test code 82 ML/MIN/1.73 = 00260) eGFR NON- AMER. (test 71 ML/MIN/1.73 code = 83156) CALC BUN/CREAT (test code = 24 RATIO 2235) SODIUM (test code = 2231) 140 MEQ/L POTASSIUM (test code = 2228) 4.2 MEQ/L CHLORIDE (test code = 2215) 101 MEQ/L CARBON DIOXIDE (test code = 26 MEQ/L 2206) CALCIUM (test code = 2209) 9.5 MG/DL PROTEIN, TOTAL (test code = 7.2 G/DL 2229) ALBUMIN (test code = 2201) 4.4 G/DL CALC GLOBULIN (test code = 2.8 G/DL 2240) CALC A/G RATIO (test code = 1.6 RATIO 2234) BILIRUBIN, TOTAL (test code = <0.2 MG/DL 2207) ALKALINE PHOSPHATASE (test 59 U/L code = 2204) AST (test code = 2218) 11 U/L ALT (test code = 2219) 10 U/L LIPID [id number] 00:00:00 Test Item Value Reference Range Interpretation Comments CHOLESTEROL (test code = 2210) 189 MG/DL TRIGLYCERIDES (test code = 2232) 78 MG/DL HDL CHOLESTEROL (test code = 2220) 48 MG/DL CALC LDL CHOL (test code = 2237) 125 MG/DL RISK RATIO LDL/HDL (test code = 2.61 RATIO 2238) LIPID [id number] 00:00:00 Test Item Value Reference Range Interpretation Comments CHOLESTEROL (test code = 2210) 189 MG/DL TRIGLYCERIDES (test code = 2232) 78 MG/DL HDL CHOLESTEROL (test code = 2220) 48 MG/DL CALC LDL CHOL (test code = 2237) 125 MG/DL RISK RATIO LDL/HDL (test code = 2.61 RATIO 2238) HEMOGLOBIN [id number] 00:00:00 Test Item Value Reference Range Interpretation Comments HEMOGLOBIN A1c (test code = 55468) 6.5 % HEMOGLOBIN [id number] 00:00:00 Test Item Value Reference Range Interpretation Comments HEMOGLOBIN A1c (test code = 10890) 6.5 % HEMOGLOBIN [id number] 00:00:00 Test Item Value Reference Range Interpretation Comments HEMOGLOBIN A1c (test code = 82382) 6.5 % [id number] 00:00:00 Test Item Value Reference Range Interpretation Comments TSH, THIRD GENERATION (test code 3.650 UIU/ML = 2821) [id number] 00:00:00 Test Item Value Reference Range Interpretation Comments TSH, THIRD GENERATION (test code 3.650 UIU/ML = 2821) [id number] 00:00:00 Test Item Value Reference Range Interpretation Comments TSH, THIRD GENERATION (test code 3.650 UIU/ML = 2821) COMPREHENSIVE METABOLIC [id number] 00:00:00 Test Item Value Reference Range Interpretation Comments GLUCOSE (test code = 2217) 101 MG/DL BUN (test code = 2208) 21 MG/DL CREATININE (test code = 2214) 0.89 MG/DL eGFR AMER. (test code 82 ML/MIN/1.73 = 34420) eGFR NON- AMER. (test 71 ML/MIN/1.73 code = 33192) CALC BUN/CREAT (test code = 24 RATIO [...] BILIRUBIN, TOTAL (test code = <0.2 MG/DL 220) ALKALINE PHOSPHATASE (test 59 U/L code = 2204) AST (test code = 2218) 11 U/L ALT (test code = 2219) 10 U/L COMPREHENSIVE METABOLIC [id number] 00:00:00 Test Item Value Reference Range Interpretation Comments GLUCOSE (test code = 2217) 101 MG/DL BUN (test code = 2208) 21 MG/DL CREATININE (test code = 2214) 0.89 MG/DL eGFR AMER. (test code 82 ML/MIN/1.73 = 47053) eGFR NON- AMER. (test 71 ML/MIN/1.73 code = 64751) CALC BUN/CREAT (test code = 24 RATIO 2235) SODIUM (test code = 2231) 140 MEQ/L POTASSIUM (test code = 2228) 4.2 MEQ/L CHLORIDE (test code = 2215) 101 MEQ/L CARBON DIOXIDE (test code = 26 MEQ/L 2206) CALCIUM (test code = 2209) 9.5 MG/DL [...] (test code = 2219) 10 U/L LIPID [id number] 00:00:00 Test Item Value Reference Range Interpretation Comments CHOLESTEROL (test code = 2210) 189 MG/DL TRIGLYCERIDES (test code = 2232) 78 MG/DL HDL CHOLESTEROL (test code = 2220) 48 MG/DL CALC LDL CHOL (test code = 2237) 125 MG/DL RISK RATIO LDL/HDL (test code = 2.61 RATIO 2238) LIPID [id number] 00:00:00 Test Item Value Reference Range Interpretation Comments CHOLESTEROL (test code = 2210) 189 MG/DL TRIGLYCERIDES (test code = 2232) 78 MG/DL HDL CHOLESTEROL (test code = 2220) 48 MG/DL CALC LDL CHOL (test code = 2237) 125 MG/DL RISK RATIO LDL/HDL (test code = 2.61 RATIO 2238) HEMOGLOBIN [id number] 00:00:00 Test Item Value Reference Range Interpretation Comments HEMOGLOBIN A1c (test code = 13539) 6.5 % HEMOGLOBIN [id number] 00:00:00 Test Item Value Reference Range Interpretation Comments HEMOGLOBIN A1c (test code = 88825) 6.5 % HEMOGLOBIN [id number] 00:00:00 Test Item Value Reference Range Interpretation Comments HEMOGLOBIN A1c (test code = 10478) 6.5 % [id number] 00:00:00 Test Item Value Reference Range Interpretation Comments TSH, THIRD GENERATION (test code 3.650 UIU/ML = 2821) [id number] 00:00:00 Test Item Value Reference Range Interpretation Comments TSH, THIRD GENERATION (test code 3.650 UIU/ML = 2821) [id number] 00:00:00 Test Item Value Reference Range Interpretation Comments TSH, THIRD GENERATION (test code 3.650 UIU/ML = 2821)
[2022-08-29] MEDS ORDERED: HYDROCODONE/APAP 10/325 TAB ONE (21:14)
--- NOTE | 2022-08-29 21:23 | RAD REPORT ---
EXAM DESCRIPTION: RAD - Lumbar Spine 3 Views - 08/29/2022 9:07 pm CLINICAL HISTORY: Back pain FINDINGS: No fracture or dislocation is seen.
--- NOTE | 2022-08-29 22:10 | ER ---
Nurse's Notes [facility] Name: Deepika Brown Age: 61 yrs Sex: Female : 1960 Arrival Date: 08/29/2022 Time: 19:55 Bed 9 Private MD: Diagnosis: Strain of muscle, fascia and tendon of lower back Presentation: 08/29 20:22 Chief complaint: Patient states: Slipped off the edge of a chair yesterday and landed kb3 on her buttocks. Reports pain in her tailbone. Coronavirus screen: Vaccine status: Patient reports receiving the 2nd dose of the covid vaccine. Client denies travel out of the [place] in the last 14 days. Ebola Screen: Patient negative for fever greater than or equal to 101.5 degrees Fahrenheit, and additional compatible Ebola Virus Disease symptoms Patient denies exposure to infectious person. Patient denies travel to an Ebola-affected area in the 21 days before illness onset. Initial Sepsis Screen: Does the patient meet any 2 criteria? No. Patient's initial sepsis screen is negative. Does the patient have a suspected source of infection? No. Patient's initial sepsis screen is negative. Risk Assessment: Do you want to hurt yourself or someone else? Patient reports no desire to harm self or others. Onset of symptoms was August 28, 2022 at 15:00. 20:22 Method Of Arrival: Ambulatory 3 20:22 Acuity: ESME 4 kb3 Triage Assessment: 20:23 General: Appears in no apparent distress. Behavior is calm, cooperative. Pain: kb3 Complains of pain in coccyx Pain does not radiate. Pain currently is 10 out of 10 on a pain scale. Historical: - Allergies: 20:23 No Known Allergies; kb3 - Home Meds: 20:23 Metformin Oral [Active]; kb3 - PMHx: 20:23 Arthritis; Diabetes - NIDDM; Hypertension; kb3 - PSHx: 20:23 None; kb3 - Immunization history:: Adult Immunizations up to date, Client reports receiving the 2nd dose of the Covid vaccine, Last tetanus immunization: up to date. - Social history:: Smoking status: Patient denies any tobacco usage or history of. Vital Signs: 20:22 BP 137 / 71; Pulse 86; Resp 20; Temp 97.7; Pulse Ox 100% ; Weight 106.14 kg; Height 5 kb3 ft. 2 in. (157.48 cm); Pain 10/10; 20:22 Body Mass Index 42.80 (106.14 kg, 157.48 cm) kb3 ED Course: 19:55 Patient arrived in ED. bp1 20:00 Gopi Shoemaker PA is PHCP. [facility] 20:00 Damon Yusuf MD is Attending Physician. jmm 20:23 Triage completed. kb3 20:23 Arm band placed on right wrist. kb3 21:09 Lumbar Spine (3 Views) XRAY In Process Unspecified. EDMS 21:13 Kailey Zamorano, RN is Primary Nurse. hb Administered Medications: 21:15 Drug: [place] (HYDROcodone-acetaminophen) 10 mg-325 mg 1 tabs Route: PO; hb Outcome: 22:09 Discharge ordered by . m 22:29 Patient left the ED. hb Signatures: Dispatcher [employer] EDHI Gopi Shoemakre PA PA [facility] Kailey Zamorano, RN RN Solange Jules bp1 Lala Whitt, FALGUNI RN kb3
--- NOTE | 2022-08-29 22:11 | EDPHYS ---
Physician Documentation [facility] Name: Deepika Brown Age: 61 yrs Sex: Female : 1960 Arrival Date: 08/29/2022 Time: 19:55 Bed 9 Private MD: ED Physician Damon Yusuf HPI: 08/29 20:12 This 61 yrs old Black Female presents to ER via Ambulatory with complaints of Fall jmm Injury. 20:12 Details of fall: The patient fell from seated position, out of a chair. Onset: The jmm symptoms/episode began/occurred acutely, just prior to arrival. Associated injuries: The patient sustained injury to the low back. This is a 61-year-old female with history diabetes mellitus, hypertension the presents emerged part with complaints of lower back pain and buttock pain following a fall which occurred yesterday. Patient states she fell off a chair pain is mainly localized to the lower back and the coccygeal region. Patient denies hitting her head.. Historical: - Allergies: 20:23 No Known Allergies; kb3 - Home Meds: 20:23 Metformin Oral [Active]; kb3 - PMHx: 20:23 Arthritis; Diabetes - NIDDM; Hypertension; kb3 - PSHx: 20:23 None; kb3 - Immunization history:: Adult Immunizations up to date, Client reports receiving the 2nd dose of the Covid vaccine, Last tetanus immunization: up to date. - Social history:: Smoking status: Patient denies any tobacco usage or history of. ROS: 20:12 Constitutional: Negative for fever, chills, and weight loss, Cardiovascular: Negative jmm for chest pain, palpitations, and edema, Respiratory: Negative for shortness of breath, cough, wheezing, and pleuritic chest pain. 20:12 MS/Extremity: Negative for injury and deformity. 20:12 Back: Positive for pain with movement. 20:12 All other systems are negative. Exam: 20:12 Constitutional: This is a well developed, well nourished patient who is awake, alert, jmm and in no acute distress. Head/Face: atraumatic. Eyes: EOMI, no conjunctival erythema appreciated ENT: Moist Mucus Membranes Neck: Trachea midline, Supple Chest/axilla: Normal chest wall appearance and motion. Cardiovascular: Regular rate and rhythm. No edema appreciated Respiratory: Normal respirations, no respiratory distress appreciated Abdomen/GI: Non distended 20:12 Skin: General appearance color normal MS/ Extremity: Moves all extremities, no obvious deformities appreciated, no edema noted to the lower extremities Neuro: Awake and alert Psych: Behavior is normal, Mood is normal, Patient is cooperative and pleasant 20:12 Back: pain, that is moderate, of the lumbar area and sacrum. Vital Signs: 20:22 BP 137 / 71; Pulse 86; Resp 20; Temp 97.7; Pulse Ox 100% ; Weight 106.14 kg; Height 5 kb3 ft. 2 in. (157.48 cm); Pain 10/10; 20:22 Body Mass Index 42.80 (106.14 kg, 157.48 cm) kb3 MDM: 20:12 Patient medically screened. [facility] 22:09 Data reviewed: vital signs, nurses notes. Counseling: I had a detailed discussion with gen the patient and/or guardian regarding: the historical points, exam findings, and any diagnostic results supporting the discharge/admit diagnosis, the need for outpatient follow up, to return to the emergency department if symptoms worsen or persist or if there are any questions or concerns that arise at home. 22:09 ED course: X-rays negative. Patient does feel better after pain medication jmm administration. Patient vies follow-up PCP and otherwise given strict return precautions. Patient understood and agrees plan of care.. 08/29 20:13 Order name: Lumbar Spine (3 Views) XRAY; Complete Time: 21:28 jm Administered Medications: 21:15 Drug: [place] (HYDROcodone-acetaminophen) 10 mg-325 mg 1 tabs Route: PO; hb Disposition: 22:41 Co-signature as Attending Physician, Damon Yusuf MD I agree with the assessment and rt plan of care. Disposition Summary: 08/29/22 22:09 Discharge Ordered Location: Home [facility] Condition: Stable [facility] Diagnosis - Strain of muscle, fascia and tendon of lower back [facility] Followup: [facility] - With: Private Physician - When: 2 - 3 days - Reason: Recheck today's complaints, Continuance of care, Re-evaluation by your physician Discharge Instructions: - Discharge Summary Sheet katerina - Low Back Sprain or Strain Rehab-Sports[facility] Forms: - Medication Reconciliation Form katerina - Thank You Letter gen - Antibiotic Education jmm - Prescription Opioid Use [facility] Prescriptions: - Zanaflex 4 mg Oral Tablet - take 1 tablet by ORAL route every 8 hours As needed; 20 tablet; Refills: 0, [facility] Product Selection Permitted - Diclofenac Sodium 75 mg Oral Tablet Sustained Release - take 1 tablet by ORAL route 2 times per day; 30 tablet; Refills: 0, Product [facility] Selection Permitted Signatures: Dispatcher [employer] Gopi Nicolas PA PA Kailey Hernandez RN RN hb Lala Whitt RN RN kb3 Damon Yusuf MD MD rt
[2022-08-29 23:09] VITALS: BP 137/71; TEMP 97.7; O2SAT 100
== END 2022-08-29 22:29 | disposition home or self-care (01) ==
LOC: ER 19:31
DX: S39.012A Strain of muscle, fascia and tendon of lower back, initial encounter (principal); E11.9 Type 2 diabetes mellitus without complications; I10 Essential (primary) hypertension
CPT/HCPCS: 72100; 99283

== ENCOUNTER 2023-05-28 21:30 | Inpatient (IN) | payer MEDICARE ==
--- OUTSIDE RECORDS SUMMARY | 2023-05-28 21:45 | XMS REPORT | Continuity of Care Document ---
:1960 Author Organization [facility] t Address [address] [place] [address] Care Team Providers Name Role Phone [facility] [phone] Liban Almanza Attending Clinician Unavailable Louis Lloyd Attending Clinician Unavailable Johnny -Amina Lane Attending Clinician OWENS_T Attending Clinician Unavailable Arin Carrasquillo Attending Clinician Unavailable Den Do Attending Clinician QUINTON HOOPER Attending Clinician Unavailable RAFAEL TAVERAS Attending Clinician Unavailable Ro Christianson Attending Clinician Doctor Unassigned, Cleary Attending Clinician Unavailable ROLA MCNEILL Attending Clinician Unavailable Rola Mcneill MD Attending Clinician OWENS_T Admitting Clinician Unavailable Kathleen Jovel Admitting Clinician Unavailable Payers Payer Name Policy Type Policy Number Effective Date Expiration Date [address] 2021 (MEDICARE 00:00:00 REPLACEMENT HMO) Problems This patient has no known problems. Allergies, Adverse Reactions, Alerts Allergy Allergy Status Severity Reaction(s) Onset Inactive Treating Comm ents Source Name Type Date Date Clinician NO KNOWN Drug Active Chapis Liu ity of [facility] Medications Ordered Filled Start Stop Current Ordering [...] 100 mg 2-07 capsule 00:00: 00 valsartan 2021-0 No 1mg 40 mg 8-04 tablet 00:00: 00 allopurinol 2021-0 No 1mg 100 mg 8-04 tablet 00:00: 00 Dose 2021-0 No Unknown 8-04 00:00: 00 Dose 2021-0 No Unknown 8-04 00:00: 00 metformin 2021-0 No 1mg ER 500 mg 8-04 24 hr 00:00: tablet,exte 00 nded release (gastric) gabapentin 1-0 No 1mg 100 mg 8-04 capsule 00:00: 00 valsartan 2021-0 No 1mg 40 mg 8-04 tablet 00:00: 00 allopurinol 2021-0 No 1mg 100 mg 8-04 tablet 00:00: 00 Dose 2021-0 No Unknown 8-04 00:00: 00 Dose 2021-0 No Unknown 8-04 00:00: 00 metformin 2021-0 No 1mg ER 500 mg 8-04 24 [...] 1mg mg tablet 2-16 00:00: 00 gabapentin 2018- No 1mg 100 mg 2-16 capsule 00:00: 00 gabapentin 2018- No 1mg 100 mg 2-16 capsule 00:00: 00 allopurinol 2018- No 1mg 100 [...] Jamel COVID-19 2021-11-25 Completed Vaccine 00:00:00 Jamel COVID-19 2021-04-30 Completed Vaccine 00:00:00 Jamel COVID-19 2021-04-30 [...] Goal Plan of Care Note [code = 74759-3] Goal Plan of Care Note [code = 15757-6] Goal Plan of Care Note [code = 25403-1] Goal Plan of Care Note [code = 21622-3] Goal Plan of Care Note [code = 70545-7] Goal Plan of Care Note [code = 50372-9] Goal Plan of Care Note [code = 51010-1] Goal Plan of Care Note [code = 94341-8] Goal Plan of Care Note [code = 30152-0] Goal Plan of Care Note [code = 05158-6] Goal Plan of Care Note [code = 22019-0] Goal Plan of Care Note [code = 83970-5] Goal Plan of Care Note [code = 92870-5] Goal Plan of Care Note [code = 26090-7] Goal Plan of Care Note [code = 60393-1] Goal Plan of Care Note [code = 81123-2] Goal Plan of Care Note [code = 41241-3] Goal Plan of Care Note [code = 93235-0] Goal Plan of Care Note [code = 76295-1] Goal Plan of Care Note [code = 81708-9] Goal Plan of Care Note [code = 38322-2] Goal Plan of Care Note [code = 88070-9] Goal Plan of Care Note [code = 28374-8] Goal Plan of Care Note [code = 17863-6] Goal Plan of Care Note [code = 00472-7] Goal Plan of Care Note [code = 34649-2] Goal Plan of Care Note [code = 01987-4] Goal Plan of Care Note [code = 01380-5] Goal Plan of Care Note [code = 32737-9] Goal Plan of Care Note [code = 44213-1] Goal Plan of Care Note [code = 79292-2] Goal Plan of Care Note [code = 47844-7] Goal Plan of Care Note [code = 14352-8] Encounters Start End Encounter Admission Attending Care Care Encounter Source Date/Time Date/Time Type Type Clinicians Facility Department ID 2023-03-21 [facility] [id number] Common 08:18:02 [facility] [address] [facility] 2023-02-22 Outpatient Almanza, [facility] [id number] Common 15:05:02 [facility] [address] [facility] 2023-01-28 Outpatient Lloyd, [facility] [id number] Common 08:59:01 Avnee [address] [facility] 2022-12-28 [facility] [id number] Common 13:24:03 Avnee [address] [facility] 2021-08-[address] [facility] [id number] Univers 12:56:[address] [facility] 2023-04-20 2023-04-20 ANTHONY Huynh 2.16.840. 2.16.840.1. NICOLASA XFR22Y Devoted 17:00:00 18:00:00 Johnny 1.178769. 436808.4.6. [facility] [id number] [id number] 2023-04-14 2023-04-14 Outpatient DIANNE JIM [id number] Devoted 00:00:00 00:00:00 0713 [facility] 2022-11-22 2022-11-22 Outpatient KIM ALVAREZ [id number] 023 Manny 11:13:59 11:13:59 0220 Juanita Carrillo 2022-08-04 2022-08-04 Outpatient SFA SFA [id number] 022 Manny 10:02:36 10:02:36 1102 F Gerardo 2022-08-04 2022-08-04 Outpatient [id number]- [id number] [id number] 00:00:00 00:00:00 Visit 732a-476a 32a-476a-a -r5f8-290 4a9-2615j3 [id number] 2022-07-07 2022-07-07 Outpatient [facility] [id number] 022 Manny 10:38:04 10:38:04 1005 F Gerardo 2022-07-07 2022-07-07 Outpatient [id number]- [id number] 00:00:00 00:00:00 Visit 2fed-48e7 fed-48e7-b -kb8z-2mo c7x-8yuq23 [id number] 5475-09-02 2022-06-04 Outpatient Arin Guaman [facility] [place] [place]0 [id number] [facility] 08:00:00 08:00:00 86 [facility] 2022-06-03 2022-06-03 [facility] [id number] [facility] 11:16:00 11:16:00 99 [facility] 2022-05-21 2022-05-21 ANTHONY Do 2.16.840. 2.16.840.1. [id number] [facility]oted 16:00:00 17:00:00 [id number]. 525884.4.6. 9[facility] [id number] [id number] 2022-05-21 2022-05-21 Outpatient OWENS_T DMG DMG [id number] 023 Devoted 00:00:00 00:00:00 0506 [facility] 2022-05-21 2022-05-21 Outpatient OWENS_T DM DMG [id number] 023 Devoted 00:00:00 00:00:00 0712 [facility] 2022-04-16 2022-04-16 Outpatient OWENS_T DM DMG [id number] 022 Devoted 06:14:00 06:14:00 0715 [facility] 2021-10-07 2021-10-07 Outpatient OWENS_T DMG [facility] [id number] Devoted 05:50:00 05:50:00 0105 [facility] 2021-09-03 2021-09-03 Outpatient DMG DM [id number] 021 Devoted 08:02:00 08:02:00 1202 [facility] 2021-04-16 2021-04-16 Outpatient DMG [facility] [id number] 021 Devoted 12:00:00 12:00:00 0715 [facility] 2021-01-06 2021-01-06 [facility] [id number] Univers 11:15:00 11:15:00 QUINTON margot [facility] 2020-12-02 2020-12-02 [facility] [id number] Univers 15:30:00 15:30:00 QUINTON [facility] 2020-10-28 2020-10-28 [facility] [id number] Univers 13:00:00 13:00:00 QUINTON margot [facility] 2020-10-23 2020-10-23 Outpatient Aline TAVERAS [facility] [id number] Univers 13:00:00 13:00:00 RAFAEL [facility] 2020-09-24 2020-09-24 Emergency Cacwhitt, [facility] [id number] 10:59:00 13:13:00 Ro Jackson 350.1.13.10 Nunu 4.2.7.2.686 [place] [id number] 2020-09-24 2020-09-24 Orders Doctor AZEEM 1.2.840.114 [id number] 00:00:00 00:00:00 Only Unassigned, HIWOT 350.1.13.10 Cleary [facility] 4.2.7.2.686 [id number] 2020-02-28 2020-02-28 Outpatient [facility] [id number] Univers 14:15:00 14:15:00 ROLA margot [facility] 2020-02-28 2020-02-28 Office Rachel CABRENDA 1.2.259.432 [id number] 13:42:58 14:02:55 Visit Rola [facility] 350.1.13.10 Surgical 4.2.7.2.686 Specialti [id number] es [address] [place] Results Test Description Test Time Test Comments Results Result Comments Source ALBUMIN/CREATININE RATIO, URINE, RANDOM 2022-11-23 08:15:47 Test Item Value Reference Range Interpretation Comme nts CREATININE, URINE, CONC. (test 116.3 MG/DL NOT ESTAB code = 2072) ALBUMIN, URINE, RANDOM (test <0.2 MG/DL NOT ESTAB code = 50753) CALC ALBUMIN/CREAT, RND (test <2 MG/G <30 Note: Albumin/Creatinine ratio code = 25972) reference inte rval reflects ADA and NKF guideli leyda. [facility] has important patho logy staff changes effecti ve 12/01/2022. New patholo gy staff will provide uninter rupted, excellent patie nt care and clinical consul tation. See URL: [email or web address]. UNLESS OTHERWIS E INDICATED, ALL TESTING PERFORM ED AT CL[facility]ICAL [facility]. [address] [facility], [place] CLIA: [id number], CAP : [id number] COMPREHENSIVE METABOLIC [id number] 04:41:22 Test Item Value Reference Range Interpretation Comments GLUCOSE (test code = 107 MG/DL 70-99 H 2216) BUN (test code = 31 MG/DL 8-23 H 2207) CREATININE (test 1.18 MG/DL 0.60-1.30 code = 2214) eGFR (2020 CKD-EPI) 52 ML/MIN/1.73 >60 L The N KF-ASN (test code = 33614) Taskforc e recommends use of Cystatin C to confirm eGFR inadults at ris k for CKD. [facility] offers eGFR with Cystatin C-Creatinineusi ng the 2020 CKD-EP I eGFR_creat-cyst at equation (order code 3057) toincreas e the accuracy of estimated GFR. For more informatio n, contactyour acc ount executive or se e announcement [email or web address] ys CALC BUN/CREAT (test 26 RATIO 6-28 code = 2235) SODIUM (test code = 141 MEQ/L 243-013 8286) POTASSIUM (test code 4.5 MEQ/L 3.5-5.4 = 2227) CHLORIDE (test code 104 MEQ/L 95-107 = 221) CARBON DIOXIDE (test 23 MEQ/L 19-31 code = 2206) CALCIUM (test code = 9.8 MG/DL 8.5-10.5 2208) PROTEIN, TOTAL (test 7.4 G/DL 6.1-8.3 code = 222) ALBUMIN (test code = 4.3 G/DL 3.5-5.2 2200) CALC GLOBULIN (test 3.1 G/DL 1.9-3.7 code = 224) CALC A/G RATIO (test 1.4 RATIO 1.0-2.6 code = 223) BILIRUBIN, TOTAL 0.2 MG/DL See_Comment [Automated message] (test code = 220) The syste [employer] which generated this result transmit jayson reference range : <=1.2. The refe rence range was not u sed to interpret th is result as normal/abnormal . ALKALINE PHOSPHATASE 74 U/L 40-140 (test code = 220) AST (test code = 12 U/L 9-40 2217) ALT (test code = 8 U/L 5-40 2218) LIPID [id number] 04:41:22 Test Item Value Reference Range Interpretation Comments CHOLESTEROL (test 217 MG/DL <200 H code = 2210) TRIGLYCERIDES (test 89 MG/DL <150 code = 2232) HDL CHOLESTEROL (test 48 MG/DL >39 code = 2220) CALC LDL CHOL (test 150 MG/DL <100 H NOTE: C ALCULATED LDL code = 2237) IS BASED ON SAEID-KUHN METHOD WHICHINCLUDES ADJUSTABLE TRIGLYCERIDE:VL DL CHOLESTEROL RAT IO.THIS FACTOR VARIES B Y MEASURED TRIGLY CERIDE AND NON-HDLCHOL ESTEROL CONCENTRATIONS WITH INCREASED CALCU LATED LDL SEENIN HIGH ER TRIGLYCERIDE OR LOWER NON-HDL SPECIME NS. FOR MOREINFORMATION , SEE CLIENT ANNOUNCE MENT AT [email or web address] RISK RATIO LDL/HDL 3.13 RATIO <3.22 (test code = 2238) HEMOGLOBIN [id number] 03:12:36 Test Item Value Reference Range Interpretation Comments HEMOGLOBIN A1c (test 6.6 % 4.2-5.6 H AMERIC AN DIABETES code = 82296) ASSOCIATION IDELINES FOR HGB A1C: PREDIABETES/INC REASED RISK . . . . . . . 5.7 -6.4% DIAGNOSIS OF DI ABETES . . . . . . . . . >=6 .5% WITH CONFIRMATION OR APPROPRIATE SYMPTOMS NOTE: ASSAY MAY BE AFFECTED BY HEMOGLOBINOPATH IES (SICKLE CELL ANEMIA, S- C DISEASE, OTHERS) OR ISAURO FICIALLY LOWERED BY DECR EASED RED CELL SURVIVAL ( HEMOLYTIC ANEMIAS, BLOOD LOSS, ETC.). CONSIDER ALTERN ATE TESTING OR LABORATORY C ONSULTATION. HEMOGLOBIN [id number] 05:10:16 Test Item Value Reference Range Interpretation Comments HEMOGLOBIN A1c (test 6.7 % 4.2-5.6 H AMERIC AN DIABETES code = 72902) ASSOCIATION IDELINES FOR HGB A1C: PREDIABETES/INC REASED RISK . . . . . . . 5.7 -6.4% DIAGNOSIS OF DI ABETES . . . . . . . . . >=6 .5% WITH CONFIRMATION OR APPROPRIATE SYMPTOMS NOTE: ASSAY MAY BE AFFECTED BY HEMOGLOBINOPATH IES (SICKLE CELL ANEMIA, S- C DISEASE, OTHERS) OR ISAURO FICIALLY LOWERED BY DECR EASED RED CELL SURVIVAL ( HEMOLYTIC ANEMIAS, BLOOD LOSS, ETC.). CONSIDER ALTERN ATE TESTING OR LABORATORY C ONSULTATION. LIPID [id number] 03:29:16 Test Item Value Reference Range Interpretation [...] MOREINFORMATION , SEE CLIENT ANNOUNCE MENT AT [email or web address] RISK RATIO LDL/HDL 2.98 RATIO <3.22 UNLESS O THERWISE (test code = 2238) INDICATED , ALL TESTING PERFORMED [facility], [facility]. [address] [place] [address] [facility]ITAL[facility] KENYON DIRECTOR: SATNAM AVENDANO M.D. CLIA NUMBER [id number] CAP ACCREDITATION N O. [id number] HEMOGLOBIN [id number] 00:00:00 Test Item Value Reference Range Interpretation Comments HEMOGLOBIN A1c (test code = 36394) 6.7 % HEMOGLOBIN [id number] 00:00:00 Test Item Value Reference Range Interpretation Comments HEMOGLOBIN A1c (test code = 18494) 6.7 % HEMOGLOBIN [id number] 00:00:00 Test Item Value Reference Range Interpretation Comments HEMOGLOBIN A1c (test code = 36531) 6.7 % LIPID [id number] 00:00:00 Test Item Value Reference Range Interpretation Comments CHOLESTEROL (test code = 2210) 229 MG/DL TRIGLYCERIDES (test code = 2232) 139 MG/DL HDL CHOLESTEROL (test code = 2220) 51 MG/DL CALC LDL CHOL (test code = 2237) 152 MG/DL RISK RATIO LDL/HDL (test code = 2.98 RATIO 2238) LIPID [id number] 00:00:00 Test Item Value Reference Range Interpretation Comments CHOLESTEROL (test code = 2210) 229 MG/DL TRIGLYCERIDES (test code = 2232) 139 MG/DL HDL CHOLESTEROL (test code = 2220) 51 MG/DL CALC LDL CHOL (test code = 2237) 152 MG/DL RISK RATIO LDL/HDL (test code = 2.98 RATIO 2238) HEMOGLOBIN [id number] 00:00:00 Test Item Value Reference Range Interpretation Comments HEMOGLOBIN A1c (test code = 31395) 6.7 % HEMOGLOBIN [id number] 00:00:00 Test Item Value Reference Range Interpretation Comments HEMOGLOBIN A1c (test code = 93032) 6.7 % HEMOGLOBIN [id number] 00:00:00 Test Item Value Reference Range Interpretation Comments HEMOGLOBIN A1c (test code = 71103) 6.7 % LIPID [id number] 00:00:00 Test Item Value Reference Range Interpretation Comments CHOLESTEROL (test code = 2210) 229 MG/DL TRIGLYCERIDES (test code = 2232) 139 MG/DL HDL CHOLESTEROL (test code = 2220) 51 MG/DL CALC LDL CHOL (test code = 2237) 152 MG/DL RISK RATIO LDL/HDL (test code = 2.98 RATIO 2238) LIPID [id number] 00:00:00 Test Item Value Reference Range Interpretation Comments CHOLESTEROL (test code = 2210) 229 MG/DL TRIGLYCERIDES (test code = 2232) 139 MG/DL HDL CHOLESTEROL (test code = 2220) 51 MG/DL CALC LDL CHOL (test code = 2237) 152 MG/DL RISK RATIO LDL/HDL (test code = 2.98 RATIO 2238) - US PELVIC [id number] 14:49:00 [facility] 1960 Sex: F Name: WEI BROWN [facility] : 1960 Age/S: 61 / F [address] [address] [place] Unit #: [id number] Loc: [place] [address] Phys: Arin Carrasquillo MD Acct: [id number] Dis Date: Status: REG CLI PHONE #: [phone] Exam Date: 06/03/2022 1300 FAX #: Reason: Hx of Ovarian Cyst EXAMS: CPT: [id number] US PEL LOERNZO COMPLETE 84515 HISTORY: Pain. History of ovarian cyst Location [...] MD; Kathleen Jovel DO Technologist: Lavonne Gill Trnscb Date/Time: 06/03/2022 (4813) MichelleRK5 PAGE 1 Signed Report Name: WEI BROWN [place] : 1960 Age/S: 61 / F [address] [place] Unit #: [id number] Loc: [place] [address] Phys: Arin Carrasquillo MD Acct: [id number] Dis Date: Status: REG CLI PHONE #: [phone] Exam Date: 06/03/2022 1300 FAX #: Reason: Hx of Ovarian Cyst EXAMS: CPT: [id number] US PELVIC COMPLETE 95631 (Continued) Orig Print D/T: S: 06/03/2022 (8977) Probe: PAGE 2 Signed Report HEMOGLOBIN [id number] 00:00:00 Test Item Value Reference Range Interpretation Comments HEMOGLOBIN A1c (test code = 62091) 6.5 % HEMOGLOBIN [id number] 00:00:00 Test Item Value Reference Range Interpretation Comments HEMOGLOBIN A1c (test code = 58829) 6.5 % HEMOGLOBIN [id number] 00:00:00 Test Item Value Reference Range Interpretation Comments HEMOGLOBIN A1c (test code = 07869) 6.5 % HEMOGLOBIN [id number] 00:00:00 Test Item Value Reference Range Interpretation Comments HEMOGLOBIN A1c (test code = 63289) 6.5 % HEMOGLOBIN [id number] 00:00:00 Test Item Value Reference Range Interpretation Comments HEMOGLOBIN A1c (test code = 64823) 6.5 % HEMOGLOBIN [id number] 00:00:00 Test Item Value Reference Range Interpretation Comments HEMOGLOBIN A1c (test code = 95331) 6.5 % HEMOGLOBIN [id number] 00:00:00 Test Item Value Reference Range Interpretation Comments HEMOGLOBIN A1c (test code = 63364) 6.4 % HEMOGLOBIN [id number] 00:00:00 Test Item Value Reference Range Interpretation Comments HEMOGLOBIN A1c (test code = 40936) 6.4 % HEMOGLOBIN [id number] 00:00:00 Test Item Value Reference Range Interpretation Comments HEMOGLOBIN A1c (test code = 96572) 6.4 % LIPID [id number] 00:00:00 Test Item Value Reference Range Interpretation Comments CHOLESTEROL (test code = 2210) 193 MG/DL TRIGLYCERIDES (test code = 2232) 105 MG/DL HDL CHOLESTEROL (test code = 2220) 48 MG/DL CALC LDL CHOL (test code = 2237) 124 MG/DL RISK RATIO LDL/HDL (test code = 2.58 RATIO 2238) LIPID [id number] 00:00:00 Test Item Value Reference Range Interpretation Comments CHOLESTEROL (test code = 2210) 193 MG/DL TRIGLYCERIDES (test code = 2232) 105 MG/DL HDL CHOLESTEROL (test code = 2220) 48 MG/DL CALC LDL CHOL (test code = 2237) 124 MG/DL RISK RATIO LDL/HDL (test code = 2.58 RATIO 2238) HEMOGLOBIN [id number] 00:00:00 Test Item Value Reference Range Interpretation Comments HEMOGLOBIN A1c (test code = 91063) 6.4 % HEMOGLOBIN [id number] 00:00:00 Test Item Value Reference Range Interpretation Comments HEMOGLOBIN A1c (test code = 59593) 6.4 % HEMOGLOBIN [id number] 00:00:00 Test Item Value Reference Range Interpretation Comments HEMOGLOBIN A1c (test code = 50384) 6.4 % LIPID [id number] 00:00:00 Test Item Value Reference Range Interpretation Comments CHOLESTEROL (test code = 2210) 193 MG/DL TRIGLYCERIDES (test code = 2232) 105 MG/DL HDL CHOLESTEROL (test code = 2220) 48 MG/DL CALC LDL CHOL (test code = 2237) 124 MG/DL RISK RATIO LDL/HDL (test code = 2.58 RATIO 2238) LIPID [id number] 00:00:00 Test Item Value Reference Range Interpretation Comments CHOLESTEROL (test code = 2210) 193 MG/DL TRIGLYCERIDES (test code = 2232) 105 MG/DL HDL CHOLESTEROL (test code = 2220) 48 MG/DL CALC LDL CHOL (test code = 2237) 124 MG/DL RISK RATIO LDL/HDL (test code = 2.58 RATIO 2238) COMPREHENSIVE METABOLIC [id number] 00:00:00 Test Item Value Reference Range Interpretation Comments GLUCOSE (test code = 2217) 101 MG/DL BUN (test code = 2208) 21 MG/DL CREATININE (test code = 2214) 0.89 MG/DL eGFR AMER. (test code 82 ML/MIN/1.73 = 88887) eGFR NON- AMER. (test 71 ML/MIN/1.73 code = 06449) CALC BUN/CREAT (test code = 24 RATIO [...] code = 2219) 10 U/L COMPREHENSIVE METABOLIC [id number] 00:00:00 Test Item Value Reference Range Interpretation Comments GLUCOSE (test code = 2217) 101 MG/DL BUN (test code = 2208) 21 MG/DL CREATININE (test code = 2214) 0.89 MG/DL eGFR AMER. (test code 82 ML/MIN/1.73 = 49308) eGFR NON- AMER. (test 71 ML/MIN/1.73 code = 48252) CALC BUN/CREAT (test code = 24 RATIO [...] (test code = 2219) 10 U/L LIPID [id number] 00:00:00 Test Item Value Reference Range Interpretation Comments CHOLESTEROL (test code = 2210) 189 MG/DL TRIGLYCERIDES (test code = 2232) 78 MG/DL HDL CHOLESTEROL (test code = 2220) 48 MG/DL CALC LDL CHOL (test code = 2237) 125 MG/DL RISK RATIO LDL/HDL (test code = 2.61 RATIO 2238) LIPID [id number] 00:00:00 Test Item Value Reference Range Interpretation Comments CHOLESTEROL (test code = 2210) 189 MG/DL TRIGLYCERIDES (test code = 2232) 78 MG/DL HDL CHOLESTEROL (test code = 2220) 48 MG/DL CALC LDL CHOL (test code = 2237) 125 MG/DL RISK RATIO LDL/HDL (test code = 2.61 RATIO 2238) HEMOGLOBIN [id number] 00:00:00 Test Item Value Reference Range Interpretation Comments HEMOGLOBIN A1c (test code = 55068) 6.5 % HEMOGLOBIN [id number] 00:00:00 Test Item Value Reference Range Interpretation Comments HEMOGLOBIN A1c (test code = 09791) 6.5 % HEMOGLOBIN [id number] 00:00:00 Test Item Value Reference Range Interpretation Comments HEMOGLOBIN A1c (test code = 90448) 6.5 % [id number] 00:00:00 Test Item Value Reference Range Interpretation Comments TSH, THIRD GENERATION (test code 3.650 UIU/ML = 2821) [id number] 00:00:00 Test Item Value Reference Range Interpretation Comments TSH, THIRD GENERATION (test code 3.650 UIU/ML = 2821) [id number] 00:00:00 Test Item Value Reference Range Interpretation Comments TSH, THIRD GENERATION (test code 3.650 UIU/ML = 2821) COMPREHENSIVE METABOLIC [id number] 00:00:00 Test Item Value Reference Range Interpretation Comments GLUCOSE (test code = 2217) 101 MG/DL BUN (test code = 2208) 21 MG/DL CREATININE (test code = 2214) 0.89 MG/DL eGFR AMER. (test code 82 ML/MIN/1.73 = 01197) eGFR NON- AMER. (test 71 ML/MIN/1.73 code = 75411) CALC BUN/CREAT (test code = 24 RATIO 2235) SODIUM (test code = 2231) 140 MEQ/L POTASSIUM (test code = 2228) 4.2 MEQ/L CHLORIDE (test code = 2215) 101 MEQ/L CARBON DIOXIDE (test code = 26 MEQ/L 220) CALCIUM (test code = 2209) 9.5 MG/DL [...] code = 2219) 10 U/L COMPREHENSIVE METABOLIC [id number] 00:00:00 Test Item Value Reference Range Interpretation Comments GLUCOSE (test code = 2217) 101 MG/DL BUN (test code = 2208) 21 MG/DL CREATININE (test code = 2214) 0.89 MG/DL eGFR AMER. (test code 82 ML/MIN/1.73 = 39592) eGFR NON- AMER. (test 71 ML/MIN/1.73 code = 15195) CALC BUN/CREAT (test code = 24 RATIO 2235) SODIUM (test code = 2231) 140 MEQ/L POTASSIUM (test code = 2228) 4.2 MEQ/L CHLORIDE (test code = 2215) 101 MEQ/L CARBON DIOXIDE (test code = 26 MEQ/L 220) CALCIUM (test code = 2209) 9.5 MG/DL [...] (test code = 2219) 10 U/L LIPID [id number] 00:00:00 Test Item Value Reference Range Interpretation Comments CHOLESTEROL (test code = 2210) 189 MG/DL TRIGLYCERIDES (test code = 2232) 78 MG/DL HDL CHOLESTEROL (test code = 2220) 48 MG/DL CALC LDL CHOL (test code = 2237) 125 MG/DL RISK RATIO LDL/HDL (test code = 2.61 RATIO 2238) LIPID [id number] 00:00:00 Test Item Value Reference Range Interpretation Comments CHOLESTEROL (test code = 2210) 189 MG/DL TRIGLYCERIDES (test code = 2232) 78 MG/DL HDL CHOLESTEROL (test code = 2220) 48 MG/DL CALC LDL CHOL (test code = 2237) 125 MG/DL RISK RATIO LDL/HDL (test code = 2.61 RATIO 2238) HEMOGLOBIN [id number] 00:00:00 Test Item Value Reference Range Interpretation Comments HEMOGLOBIN A1c (test code = 78958) 6.5 % HEMOGLOBIN [id number] 00:00:00 Test Item Value Reference Range Interpretation Comments HEMOGLOBIN A1c (test code = 58121) 6.5 % HEMOGLOBIN [id number] 00:00:00 Test Item Value Reference Range Interpretation Comments HEMOGLOBIN A1c (test code = 70961) 6.5 % [id number] 00:00:00 Test Item Value Reference Range Interpretation Comments TSH, THIRD GENERATION (test code 3.650 UIU/ML = 2821) [id number] 00:00:00 Test Item Value Reference Range Interpretation Comments TSH, THIRD GENERATION (test code 3.650 UIU/ML = 2821) [id number] 00:00:00 Test Item Value Reference Range Interpretation Comments TSH, THIRD GENERATION (test code 3.650 UIU/ML = 2821)
[2023-05-28] MEDS ORDERED: ASPIRIN 81 MG CHEWABLE TABLET ONE (22:32)
[2023-05-28 22:53] LABS: Hematocrit 31.6 % (36.0-45.0); Lymphocytes % 23.9 % (15.3-44.8); MCV 84.6 fL (80-100); MPV 7.8 fL (7.6-11.3); Platelets 244 thou/uL (152-406); RBC Red Blood Cell Count 3.73 M/uL (3.86-4.86)
[2023-05-28 23:17] LABS: ALT/SGPT 17 U/L (13-56); AST/SGOT 14 U/L (15-37); Albumin 3.6 g/dL (3.4-5.0); Alkaline Phosphatase 71 U/L (45-117); BUN Blood Urea Nitrogen 37 mg/dL (7-18); Bicarbonate 25 mEq/L (21-32); Bilirubin Total 0.2 mg/dL (0.2-1.0); Glomerular Filtration Rate 37 ml/min (=/>90); Glucose Level 165 mg/dL (74-106); Magnesium 2.2 mg/dL (1.6-2.4); NT PRO-BNP 1433 pg/mL (<125); Potassium 3.4 mEq/L (3.5-5.1); Protein, Total 7.7 g/dL (6.4-8.2); Sodium Level 137 mEq/L (136-145)
[2023-05-28 23:37] LABS: Protime INR 1.05
[2023-05-28 23:38] LABS: Bilirubin Direct < 0.1 mg/dL (0-0.2); Bilirubin Indirect, Calculated ND mg/dL (0.2-0.8)
[2023-05-28 23:39] LABS: Troponin High Sensitivity 1503.6 pg/mL (<58.9)
[2023-05-29] MEDS ORDERED: HEPARIN/D5W 25,000 UNIT/500 ML BAG IV ONE (00:15)
[2023-05-29] MEDS ORDERED: HEPARIN 5000 UNIT/ML 1 ML VIAL ONE (00:15)
--- NOTE | 2023-05-29 01:29 | ER ---
Nurse's Notes [facility] Name: Deepika Brown Age: 62 yrs Sex: Female : 1960 Arrival Date: 05/28/2023 Time: 21:30 Bed 5 Private MD: Diagnosis: Pulmonary embolism without acute cor pulmonale Presentation: 05/28 21:40 Chief complaint: Patient states: she has been having shortness of breath on ambulation. ap3 she reports her heart rate will go to 130s on ambulation and her oxygen will drop into the 802. Coronavirus screen: At this time, the client does not indicate any symptoms associated with coronavirus-19. Ebola Screen: No symptoms or risks identified at this time. Initial Sepsis Screen: Does the patient meet any 2 criteria? No. Patient's initial sepsis screen is negative. Does the patient have a suspected source of infection? No. Patient's initial sepsis screen is negative. Risk Assessment: Do you want to hurt yourself or someone else? Patient reports no desire to harm self or others. Onset of symptoms was May 28, 2023. 21:40 Method Of Arrival: Wheelchair ap3 21:40 Acuity: ESME 3 ap3 Triage Assessment: 21:43 General: Appears in no apparent distress. Behavior is calm, cooperative, appropriate ap3 for age. Pain: Complains of pain in chest Pain currently is 5 out of 10 on a pain scale. Neuro: Level of Consciousness is awake, alert, obeys commands, Oriented to person, place, time, situation. Cardiovascular: Patient's skin is warm and dry. Respiratory: Reports shortness of breath on exertion Onset: The symptoms/episode began/occurred today. Historical: - Allergies: 21:42 No Known Allergies; ap3 - PMHx: 21:42 Arthritis; Diabetes - NIDDM; Hypertension; ap3 - Immunization history:: Client reports receiving the 2nd dose of the Covid vaccine. - Social history:: Smoking status: Patient denies any tobacco usage or history of. Screenin:43 Abuse screen: Denies threats or abuse. Nutritional screening: No deficits noted. ap3 Tuberculosis screening: No symptoms or risk factors identified. 22:47 [facility] ED Fall Risk Assessment (Adult) History of falling in the last 3 months, jw7 including since admission No falls in past 3 months (0 pts) Score/Fall Risk Level 0 - 2 = Low Risk. Assessment: 21:44 Cardiovascular: Patient's skin is warm and dry. Respiratory: Airway is patent ap3 Respiratory effort is even, unlabored. 22:45 Reassessment: Patient appears in no apparent distress at this time. No changes from 7 previously documented assessment. Patient and/or family updated on plan of care and expected duration. Pain level reassessed. Patient is alert, oriented x 3, equal unlabored respirations, skin warm/dry/pink. General: see triage assessment. 23:45 Reassessment: Patient appears in no apparent distress at this time. No changes from jw7 previously documented assessment. Patient and/or family updated on plan of care and expected duration. Pain level reassessed. Patient is alert, oriented x 3, equal unlabored respirations, skin warm/dry/pink. 05/29 00:46 Reassessment: Patient appears in no apparent distress at this time. No changes from jw7 previously documented assessment. Patient and/or family updated on plan of care and expected duration. Pain level reassessed. Patient is alert, oriented x 3, equal unlabored respirations, skin warm/dry/pink. 01:30 Reassessment: Patient appears in no apparent distress at this time. No changes from jw7 previously documented assessment. Patient and/or family updated on plan of care and expected duration. Pain level reassessed. Patient is alert, oriented x 3, equal unlabored respirations, skin warm/dry/pink. 02:48 Reassessment: Patient appears in no apparent distress at this time. No changes from jw7 previously documented assessment. Patient and/or family updated on plan of care and expected duration. Pain level reassessed. Patient is alert, oriented x 3, equal unlabored respirations, skin warm/dry/pink. Vital Signs: 05/28 21:40 Pulse 125; Resp 20; Temp 97.7; Pulse Ox 94% on R/A; Weight 109.77 kg; ap3 21:43 BP 149 / 74; ap3 22:46 BP 142 / 102; Pulse 124; Resp 18 S; Pulse Ox 95% on R/A; jw7 23:45 BP 120 / 73; Pulse 118; Resp 20 S; Pulse Ox 99% on 2 lpm NC; jw7 05/29 00:30 BP 140 / 88; Pulse 110; Resp 19 S; Pulse Ox 99% on 2 lpm NC; jw7 02:48 BP 125 / 83; Pulse 101; Resp 18 S; Pulse Ox 100% on 2 lpm NC; jw7 ED Course: 05/28 21:33 Patient arrived in ED. jj6 21:42 Triage completed. ap3 21:44 Arm band placed on right wrist. ap3 21:48 Roxie Worthy FNP-C is [facility]. snw 21:48 Omar Mccall DO is Attending Physician. snw 22:14 Saskia Cooley RN is Primary Nurse. jw7 22:45 Initial lab(s) drawn, by ny, sent to lab. Inserted saline lock: 20 gauge in left [facility] antecubital area, using aseptic technique. Blood collected. 22:47 Patient has correct armband on for positive identification. Bed in low position. Call [facility] light in reach. Side rails up X2. 22:48 Basic Metabolic Panel Sent. jw7 22:48 CBC with Diff Sent. jw7 22:48 D-Dimer Sent. jw7 22:48 LFT's Sent. jw7 22:48 Magnesium Sent. jw7 22:48 NT PRO-BNP Sent. jw7 22:48 PT-INR Sent. jw7 22:48 Troponin HS Sent. jw7 22:48 SARS-COV-2 RT PCR Sent. jw7 22:58 XRAY Chest (1 view) In Process Unspecified. EDMS 23:16 EKG done, by ED staff, reviewed by Roxie THORNTON. jw7 05/29 00:24 CT Chest For PE Angio In Process Unspecified. EDMS 00:38 Inserted saline lock: 20 gauge in right antecubital area, using aseptic technique. as6 ultrasound guided, long catheter. 01:00 Ptt, Activated Sent. jw7 01:27 Baltazar Bourgeois MD is Hospitalizing Provider. snw 02:42 No provider procedures requiring assistance completed. Patient admitted, IV remains in kl place. 02:52 Provided Education on: need for admit. jw7 02:59 Notified the admitting physician of a critical lab result(s), PTT 169 Heparin drip kl stopped x 60 minutes protocol is to restart at 200 units less and hour Josh MONTES DE OCA updated. Administered Medications: 05/28 22:48 Drug: Aspirin PO Chewable Tablet 324 mg Route: PO; jw7 05/29 03:01 Follow up: Response: No adverse reaction 05/28 23:45 CANCELLED (Other Intervention Used): Enoxaparin Sub-Q 1 mg/kg Sub-Q once snw 05/29 00:30 Drug: Heparin (DVT/PE- Bolus per protocol) - HEParin IVP 80 units/kg {Co-Signature: as6 jw7 (Bill Damon RN).} Route: IVP; Site: left antecubital; 03:01 Follow up: Response: No adverse reaction 7 00:30 Drug: Heparin (DVT/PE Drip) - ([place] [address] units, D5W IV 500 ml) 18 units/kg/hr jw7 {Co-Signature: as6 (Bill Damon RN).} Route: IV; Rate: calculated rate; Site: left antecubital; 03:01 Follow up: Response: No adverse reaction; IV Status: Infusion continued upon admission jw7 Medication: 02:52 VIS not applicable for this client. jw7 Outcome: 01:28 Decision to Hospitalize by Provider. snw 02:42 Admitted to Med/surg Report called to josh fox 02:42 Condition: stable 02:42 Discharge instructions given to 03:00 Patient left the ED. jw7 Signatures: Dispatcher [employer] EDMS Kimi Aguirre RN RN kl Waters, Shelly, CENTRAL OFFICE TROUBLE SHOOTER-C CENTRAL OFFICE TROUBLE SHOOTER-Anisa Martell RN RN ap3 Thelma Arteaga jj6 Bill Damon RN RN as6 Saskia Cooley RN RN jw7 Slawson, Ashby RN as6 Corrections: (The following items were deleted from the chart) 00:50 05/28 11:45 BP 120 / 73; Pulse 118bpm; Resp 20bpm; Spontaneous; Pulse Ox 99% 2 lpm jw7 Nasal Cannula; 05/29 00:50 05/28 11:45 BP 140 / 88; Pulse 110bpm; Resp 19bpm; Spontaneous; Pulse Ox 99% 2 lpm jw7 Nasal Cannula; jw7 05/29 01:11 05/28 23:45 BP 140 / 88; Pulse 110bpm; Resp 19bpm; Spontaneous; Pulse Ox 99% 2 lpm jw7 Nasal Cannula; jw7
--- NOTE | 2023-05-29 01:29 | EDPHYS ---
Physician Documentation [facility] Name: Deepika Brown Age: 62 yrs Sex: Female : 1960 Arrival Date: 05/28/2023 Time: 21:30 Bed 5 Private MD: ED Physician Omar Mccall HPI: 05/28 23:11 This 62 yrs old Black Female presents to ER via Wheelchair with complaints of Shortness snw Of Breath, Irregular Pulse. 23:11 The patient has shortness of breath at rest, with light activity. Onset: The snw symptoms/episode began/occurred acutely. Duration: The symptoms are continuous. Associated signs and symptoms: Pertinent positives: non-productive cough. Severity of symptoms: At their worst the symptoms were moderate severe. The patient has not experienced similar symptoms in the past. sees Dr. Almanza. Historical: - Allergies: 21:42 No Known Allergies; ap3 - PMHx: 21:42 Arthritis; Diabetes - NIDDM; Hypertension; ap3 - Immunization history:: Client reports receiving the 2nd dose of the Covid vaccine. - Social history:: Smoking status: Patient denies any tobacco usage or history of. ROS: 23:10 Eyes: Negative for injury, pain, redness, and discharge, ENT: Negative for injury, snw pain, and discharge, Neck: Negative for injury, pain, and swelling. 23:10 Abdomen/GI: Negative for abdominal pain, nausea, vomiting, diarrhea, and constipation, Back: Negative for injury and pain, : Negative for injury, bleeding, discharge, and swelling, MS/Extremity: Negative for injury and deformity, Skin: Negative for injury, rash, and discoloration, Neuro: Negative for headache, weakness, numbness, tingling, and seizure, Psych: Negative for depression, anxiety, suicide ideation, homicidal ideation, and hallucinations. 23:10 Constitutional: Positive for malaise. 23:10 Cardiovascular: Positive for palpitations. 23:10 Respiratory: Positive for dyspnea on exertion, shortness of breath. Exam: 23:04 Head/Face: Normocephalic, atraumatic. Eyes: Pupils equal round and reactive to light, snw extra-ocular motions intact. Lids and lashes normal. Conjunctiva and sclera are non-icteric and not injected. Cornea within normal limits. Periorbital areas with no swelling, redness, or edema. ENT: Nares patent. No nasal discharge, no septal abnormalities noted. Tympanic membranes are normal and external auditory canals are clear. Oropharynx with no redness, swelling, or masses, exudates, or evidence of obstruction, uvula midline. Mucous membranes moist. Neck: Trachea midline, no thyromegaly or masses palpated, and no cervical lymphadenopathy. Supple, full range of motion without nuchal rigidity, or vertebral point tenderness. No Meningismus. Chest/axilla: Normal chest wall appearance and motion. Nontender with no deformity. No lesions are appreciated. 23:04 Abdomen/GI: Soft, non-tender, with normal bowel sounds. No distension or tympany. No guarding or rebound. No evidence of tenderness throughout. Back: No spinal tenderness. No costovertebral tenderness. Full range of motion. Skin: Warm, dry with normal turgor. Normal color with no rashes, no lesions, and no evidence of cellulitis. MS/ Extremity: Pulses equal, no cyanosis. Neurovascular intact. Full, normal range of motion. Neuro: Awake and alert, GCS 15, oriented to person, place, time, and situation. Cranial nerves II-XII grossly intact. Motor strength 5/5 in all extremities. Sensory grossly intact. Cerebellar exam normal. Normal gait. Psych: Awake, alert, with orientation to person, place and time. Behavior, mood, and affect are within normal limits. 23:04 Constitutional: The patient appears alert, awake, obese. 23:04 Cardiovascular: Rate: tachycardic, Rhythm: regular, Pulses: Heart sounds: normal. 23:04 Respiratory: mild respiratory distress is noted, Respirations: shallow respirations, Breath sounds: decreased breath sounds. Vital Signs: 21:40 Pulse 125; Resp 20; Temp 97.7; Pulse Ox 94% on R/A; Weight 109.77 kg; ap3 21:43 BP 149 / 74; ap3 22:46 BP 142 / 102; Pulse 124; Resp 18 S; Pulse Ox 95% on R/A; jw7 23:45 BP 120 / 73; Pulse 118; Resp 20 S; Pulse Ox 99% on 2 lpm NC; jw7 05/29 00:30 BP 140 / 88; Pulse 110; Resp 19 S; Pulse Ox 99% on 2 lpm NC; jw7 02:48 BP 125 / 83; Pulse 101; Resp 18 S; Pulse Ox 100% on 2 lpm NC; jw7 MDM: 05/28 22:12 Patient medically screened. snw 23:42 Differential diagnosis: CHF exacerbation, Myocardial Infarction pulmonary edema, snw Pulmonary Embolism. Data interpreted: Pulse oximetry: is 95 %. Interpretation: acceptable. The patient's pulmonary embolism risk score was calculated as follows: alternative diagnosis is less likely (3 Pts) the patients heart rate is greater than 100 beats per minute (1.5 Pts) Total Score: 3-6 points. This patient was found to be at moderate risk for a pulmonary embolism by using the Well's assessment criteria. Data reviewed: vital signs, nurses notes, lab test result(s), EKG, radiologic studies. Counseling: I had a detailed discussion with the patient and/or guardian regarding the historical points, exam findings, and any diagnostic results supporting the discharge/admit diagnosis, the presence of at least one elevated blood pressure reading (>120/80) during this emergency department visit, lab results, radiology results, the need to transfer to another facility, [facility] does not immediately have the required specialist. 05/29 01:18 Management of patient was discussed with the following: Hospitalist: Hair Sen. snw Discussion of test interpretation with radiology: I had a discussion with radiology regarding a test interpretation. bilateral PE, no saddle, no heart strain. Care significantly affected by the following chronic conditions: Diabetes, Hypertension. Counseling: I had a detailed discussion with the patient and/or guardian regarding the need for further work-up and treatment in the hospital, the need to transfer to another facility, Pt would like to be admitted here, Bilateral PE but no saddle, no right heart strain, no hypoxia.. Response to treatment: the patient's symptoms have mildly improved after treatment. 05/28 22:13 Order name: Basic Metabolic Panel; Complete Time: 23:40 snw 05/28 22:13 Order name: CBC with Diff; Complete Time: 23:13 snw 05/28 22:13 Order name: D-Dimer; Complete Time: 23:40 snw 05/28 22:13 Order name: LFT's; Complete Time: 23:40 snw 05/28 22:13 Order name: Magnesium; Complete Time: 23:40 snw 05/28 22:13 Order name: NT PRO-BNP; Complete Time: 23:40 snw 05/28 22:13 Order name: PT-INR; Complete Time: 23:40 snw 05/28 22:13 Order name: Troponin HS; Complete Time: 23:40 snw 05/28 22:13 Order name: SARS-COV-2 RT PCR; Complete Time: 23:32 snw 05/29 00:54 Order name: Ptt, Activated lg3 05/29 02:09 Order name: Basic Metabolic Panel EDMS 05/29 02:09 Order name: Basic Metabolic Panel EDMS 05/29 02:09 Order name: Basic Metabolic Panel EDMS 05/29 02:09 Order name: Basic Metabolic Panel EDMS 05/29 02:09 Order name: Magnesium EDMS 05/29 02:09 Order name: Magnesium EDMS 05/29 02:09 Order name: Magnesium EDMS 05/29 02:09 Order name: Magnesium EDMS 05/29 02:09 Order name: NT PRO-BNP EDMS 05/29 02:09 Order name: NT PRO-BNP EDMS 05/29 02:09 Order name: NT PRO-BNP EDMS 05/29 02:09 Order name: NT PRO-BNP EDMS 05/29 02:09 Order name: Troponin High Sensitivity EDMS 05/29 02:09 Order name: Troponin High Sensitivity EDMS 05/29 02:09 Order name: Troponin High Sensitivity EDMS 05/29 02:09 Order name: CBC with Automated Diff EDMS 05/29 02:09 Order name: CBC with Automated Diff EDMS 05/29 02:09 Order name: CBC with Automated Diff EDMS 05/29 02:09 Order name: CBC with Automated Diff EDMS 05/29 02:10 Order name: Urinalysis w/ reflexes EDMS 05/29 02:46 Order name: CBC with Automated Diff EDMS 05/29 02:46 Order name: CBC with Automated Diff EDMS 05/29 02:46 Order name: CBC with Automated Diff EDMS 05/29 02:46 Order name: CBC with Automated Diff EDMS 05/29 02:46 Order name: Platelet Count EDMS 05/29 02:46 Order name: Platelet Count EDMS 05/29 02:46 Order name: Platelet Count EDMS 05/29 02:47 Order name: Platelet Count EDMS 05/29 02:47 Order name: Platelet Count EDMS 05/29 02:47 Order name: Platelet Count EDMS 05/29 02:47 Order name: Platelet Count EDMS 05/29 02:47 Order name: Platelet Count EDMS 05/29 02:47 Order name: PTT, Activated Partial Thromb EDMS 05/29 02:47 Order name: PTT, Activated Partial Thromb EDMS 05/29 02:47 Order name: PTT, Activated Partial Thromb EDMS 05/29 02:47 Order name: PTT, Activated Partial Thromb EDMS 05/29 02:47 Order name: PTT, Activated Partial Thromb EDMS 05/28 22:13 Order name: XRAY Chest (1 view) [facility] 05/28 22:27 Order name: CT Chest For PE Angio [facility] 05/28 22:13 Order name: EKG; Complete Time: 22:14 05/29 02:09 Order name: NPO [facility] 05/28 22:13 Order name: Cardiac monitoring; Complete Time: 22:19 [facility] 05/28 22:13 Order name: EKG - Nurse/Tech; Complete Time: 23:16 w 05/28 22:13 Order name: IV Saline Lock; Complete Time: 22:48 w 05/28 22:13 Order name: Labs collected and sent; Complete Time: 22:48 w 05/28 22:13 Order name: O2 Per Protocol; Complete Time: 22:19 [facility] 05/28 22:13 Order name: O2 Sat Monitoring; Complete Time: 22:19 snw EC/26 23:10 Rate is 117 beats/min. Rhythm is regular. QRS [place] is Normal. Q waves are Present in snw lead III. Clinical impression: Sinus tachycardia. Administered Medications: 22:48 Drug: Aspirin PO Chewable Tablet 324 mg Route: PO; 05/29 03:01 Follow up: Response: No adverse reaction 05/28 23:45 CANCELLED (Other Intervention Used): Enoxaparin Sub-Q 1 mg/kg Sub-Q once 05/29 00:30 Drug: Heparin (DVT/PE- Bolus per protocol) - HEParin IVP 80 units/kg {Co-Signature: as6 jw7 (Bill Damon RN).} Route: IVP; Site: left antecubital; 03:01 Follow up: Response: No adverse reaction jw7 00:30 Drug: Heparin (DVT/PE Drip) - ([place] [address] units, D5W IV 500 ml) 18 units/kg/hr jw7 {Co-Signature: as6 (Bill Damon RN).} Route: IV; Rate: calculated rate; Site: left antecubital; 03:01 Follow up: Response: No adverse reaction; IV Status: Infusion continued upon admission jw7 Disposition: 01:26 Co-signature as Attending Physician, Omar Mccall DO I was immediately available on-site ms3 in the Emergency Department for consultation in the care of the patient. Disposition Summary: 05/29/23 01:28 Hospitalization Ordered Hospitalization Status: Inpatient Admission snw Provider: Baltazar Bourgeois Location: Telemetry/MedSurg (Inpatient) snw Condition: Stable snw Problem: new snw Symptoms: have improved snw Bed/Room Type: Standard [facility] Room Assignment: 207(05/29/23 02:10) kl Diagnosis - Pulmonary embolism without acute cor pulmonale snw Forms: - Medication Reconciliation Form snw - SBAR form snw - Leadership Thank You Letter snw Signatures: Dispatcher [employer] EDMS Kimi Aguirre RN RN Roxie David, MARBLE CEILING INSTALLER-C MARBLE CEILING INSTALLER-Csnw Anisa Anna RN RN ap3 Omar Mccall DO DO ms3 Saskia Cooley RN RN jw7 Bill Damon RN as6 Corrections: (The following items were deleted from the chart) 05/28 23:45 23:43 Enoxaparin Sub-Q 1 mg/kg Sub-Q once ordered. snw snw 05/29 02:10 01:28 snw kl
--- NOTE | 2023-05-29 01:55 | P.HP ---
Certification for Inpatient Patient admitted to: Inpatient With expected LOS: <2 Midnights Patient will require the following post-hospital care: None Practitioner: I am a practitioner with admitting privileges, knowledge of patient current condition, hospital course, and medical plan of care. Services: Services provided to patient in accordance with Admission requirements found in Title 42 Section 412.3 of the Code of Federal Regulations Patient History Date of Service: 05/29/23 Reason for admission: Shortness of breath History of Present Illness: 62-year-old -Citizen Of [place] female with a past medical history of diabetes, arthritis, hypertension, presents to the emergency room with shortness of breath. Shortness of breath worse with exertion. She reports mild shortness of breath that is constant. She reports nonproductive cough, No reported recent injury, no abnormal leg swelling. No history of PE. she denies history of tobacco use, she denies fever, nausea vomiting, chest pain, abdominal pain., Edema, dizziness. Plan to admit for bilateral PE, elevated troponin, elevated BNP, Pulmonary embolism without acute cor pulmonale ER evaluation Pulse 125; Resp 20; Temp 97.7; Pulse Ox 94% on R/A; Weight 109.77 kg EKG0 Rate is 117 beats/min. Rhythm is regular. QRS [place] is Normal. Q waves are Present in lead III. Clinical impression: Sinus tachycardia. Laboratory evaluation WBCs 12.0, no left shift, anemia 10.4, 31.6, D-dimer 07411, hypokalemia potassium 3.4, acute on chronic kidney injury creatinine 1.50, BUN 38, troponin 1503.6, BNP 1433, COVID-negative, CTA of the chest bilateral PE, no heart strain Allergies No Known Allergies Allergy (Unverified 05/14/14 17:21) Home Medications: Hydrocodone 5/APAP 325 [[place] 5/325*] 1 tab PO Q6HP PRN #30 tab 05/15/14 Pantoprazole [Protonix Tab*] 40 mg PO ACB #30 tab 05/15/14 Cefdinir [Cefdinir*] 300 mg PO BID #20 cap 07/23/22 Hydrocodone 5/APAP 325 [[place] 5/325*] 1 tab PO Q6H PRN #30 tab 07/23/22 Smz./Tmp. [Bactrim Ds 800 MG/160 MG] 1 tab PO BID #20 tab 07/23/22 - Past Medical/Surgical History Diabetic: No -: Hypertension -: Asthma -: hysterectomy - Family History Father -: Heart disease, Hypertension Mother -: Hypertension, Diabetes - Social History Alcohol use: No CD- Drugs: No Caffeine use: Yes Review of Systems 10-point ROS is otherwise unremarkable Physical Examination - Physical Exam General: Alert, In no apparent distress, Oriented x3 HEENT: Atraumatic, Normocephalic, PERRLA Neck: Supple, 2+ carotid pulse no bruit, JVD not distended Respiratory: Clear to auscultation bilaterally, Normal air movement Cardiovascular: No edema, Normal pulses, Regular rate/rhythm, Normal S1 S2 Gastrointestinal: Normal bowel sounds, Soft and benign Musculoskeletal: No clubbing, No swelling Integumentary: No rashes, No breakdown Neurological: Normal speech, Normal strength at 5/5 x4 extr, Cranial nerves 3-12 intact - Studies Laboratory Data (last 24 hrs) 05/28/23 05/28/23 05/28/23 22:40 22:40 22:40 WBC 12.50 H Hgb 10.4 L Hct 31.6 L Plt Count 244 PT 11.5 INR 1.05 Sodium 137 Potassium 3.4 L BUN 37 H Creatinine 1.58 H Glucose 165 H Magnesium 2.2 Total Bilirubin 0.2 AST 14 L ALT 17 Alkaline Phosphatase 71 Assessment and Plan - Plan Assessment plan Bilateral Pulmonary embolism without acute cor pulmonale elevated troponin elevated BNP Pulmonary embolism without acute cor pulmonale leukocytosis anemia hypokalemia acute on chronic kidney injury creatinine Diabetes type 2 DVT hep gtt Assessment plan Bilateral Pulmonary embolism without acute cor pulmonale elevated troponin elevated BNP Hep gtt, card consult trend trop, bnp ER evaluation Pulse 125; Resp 20; Temp 97.7; Pulse Ox 94% on R/A; Weight 109.77 kg EKG0 Rate is 117 beats/min. Rhythm is regular. QRS [place] is Normal. Q waves are Present in lead III. Clinical impression: Sinus tachycardia. D-dimer 60262, troponin 1503.6, CTA of the chest bilateral PE, no heart strain leukocytosis WBCs 12.0, no left shift, trend wbc COVID-negative, anemia anemia 10.4, 31.6, trend HH hypokalemia potassium 3.4, trend electrolytes, rpl prn acute on chronic kidney injury creatinine acute on chronic kidney injury creatinine 1.50, BUN 38, neph consult Diabetes type 2 SSI, ack achs DVT hep gtt Diet NPO Full Code Discharge Plan: Home Plan to discharge in: 48 Hours - Advance Directives Does patient have a Living Will: No Does patient have a Durable POA for Healthcare: No - Code Status/Comfort Care Code Status: Full Code Physician Review: Patient Assessed, Agree with Above Assessment and Plan Critical Care: No Time Spent Managing Pts Care (In Minutes): 50
[2023-05-29] MEDS ORDERED: ONDANSETRON 4 MG/2 ML VIAL IV PRN (02:08)
[2023-05-29] MEDS ORDERED: ACETAMINOPHEN 500 MG TAB PO PRN (02:08)
[2023-05-29] MEDS ORDERED: ALPRAZOLAM 0.25 MG TABLET PO PRN (02:08)
[2023-05-29] MEDS ORDERED: MORPHINE 4 MG/ML SYR IV PRN (02:08)
[2023-05-29] MEDS ORDERED: GLUCAGON 1 MG/VIAL IM PRN (02:09)
[2023-05-29] MEDS ORDERED: D50W 25 GM/50 ML SYRINGE IV PRN (02:09)
[2023-05-29] MEDS ORDERED: HEPARIN/D5W 25,000 UNIT/500 ML BAG IV SCH (03:00)
[2023-05-29 04:00] VITALS: BMI 44.3
[2023-05-29 05:07] LABS: Specific Gravity > 1.030 (1.005-1.030); Urine Bacteria None Seen /HPF (<20); Urine Bilirubin NEGATIVE (Negative); Urine Blood Negative (Negative); Urine Clarity Clear (Clear); Urine Color Light-Yellow (Yellow); Urine Glucose NEGATIVE (Negative); Urine Mucus Slight /HPF (None Seen); Urine Protein NEGATIVE (Negative); Urine RBC <5 /HPF (None Seen); Urine Urobilinogen Normal (Normal)
[2023-05-29] MEDS ORDERED: INSULIN -REGULAR HUMAN 50 UNIT/0.5 ML ML SQ SCH (07:30)
[2023-05-29 07:41] LABS: Troponin High Sensitivity 1143.1 pg/mL (<58.9)
[2023-05-29] MEDS ORDERED: LOSARTAN/HCTZ 50-12.5 PO SCH (13:00)
[2023-05-29] MEDS ORDERED: ATORVASTATIN 20 MG TAB PO SCH (13:00)
[2023-05-29] MEDS: GABAPENTIN 100 MG CAP PO SCH (13:08)
[2023-05-29] MEDS: allopurinoL 100 MG TAB PO SCH (13:08)
--- NOTE | 2023-05-29 15:05 | EKG ---
Test Date: 2023-05-28 Test Time: 23:07:06 Aircraft Servicer: TIFFANY MEASUREMENT RESULTS: Intervals: Rate: 117 [place]: 156 QRSD: 70 QT: 328 QTc: 457 [place]: P: 62 [place]: 156 QRS: 25 T: 0 INTERPRETIVE STATEMENTS: Sinus tachycardia Nonspecific T wave abnormality Abnormal ECG Compared to ECG 11/24/2005 09:06:00 T-wave abnormality now present Sinus rhythm no longer present ST (T wave) deviation no longer present Electronically Signed On 05-29-23 15:04:37 CDT by Rashid Correa
--- NOTE | 2023-05-29 15:23 | RAD REPORT ---
EXAM DESCRIPTION: US - Extrem Venous W Compress Jignesh - 05/29/2023 2:56 pm CLINICAL HISTORY: Pain, swelling COMPARISON: None. TECHNIQUE: Real-time sonographic evaluation of the bilateral lower extremity deep venous systems was performed. FINDINGS: Normal compressibility, flow augmentation, phasic flow and spontaneous flow is identified in both the left and right lower extremity deep venous systems. No intraluminal filling defects seen. IMPRESSION: No DVT in either lower extremity.
--- NOTE | 2023-05-29 15:43 | RAD REPORT ---
EXAM DESCRIPTION: US - Renal Ultrasound-Complete - 05/29/2023 2:57 pm CLINICAL HISTORY: YULIET COMPARISON: CT ABD PELVIS W CONTRAST dated 05/14/2014 TECHNIQUE: Sonographic grayscale and color flow images of the kidneys and bladder were obtained. FINDINGS: Both kidneys are normal in size, shape and echotexture. The right kidney measures 9.7 cm in length. No hydronephrosis, focal mass or perinephric fluid. The left kidney was not visualized due to over shadowing bowel. The urinary bladder is incompletely distended without gross abnormality seen. A large cholesterol containing gallstone is seen at the gallbladder fundus. IMPRESSION: No right renal abnormalities. Left kidney was obscured by over shadowing bowel. Incidentally noted large gallstone.
--- NOTE | 2023-05-29 15:45 | PN ---
Date of Progress Note: 05/29/2023 Reason For Consultation: Elevated BUN and creatinine. History Of Present Illness: This is a pleasant 62-year-old black female with significant past medica l history of diabetes, diagnosis 2 years back, complicated with neuropathy, no retinopathy, hypertens ion, gouty arthritis on allopurinol, hypertension, the patient was in her regular state of health. T he patient came to the hospital complaining from shortness of breath and leg swelling. Primary tiffanie p showed elevation in BNP and CT with contrast was done and showed positive for PE. For that reason, the patient was admitted. Lab data for the patient shows creatinine is elevated up to 1.5 with GFR of 37. For that reason, we have been consulted. The patient as I mentioned had CT with contrast for the PE protocol. The patient apparently on losartan, hydrochlorothiazide as home medication. home medication reported Bactrim, but the patient denied taking any Bactrim. Past Medical History: Includes; 1.Diabetes since 2020 complicated with neuropathy, no retinopathy. 2.Hypertension. 3.Hyperlipidemia. 4.Gouty arthritis. 5.PE. Home Medications: Include hydrocodone, pantoprazole, losartan, hydrochlorothiazide. Past Surgical History: Includes hysterectomy. Family History: Positive for diabetes, CAD, hypertension. Social History: Denied smoking, denied drinking, denied drugs abuse. Lives with family. Review of Systems: Head and Neck: No red eye. No ear pain. GI: No nausea. No vomiting. : No polyuria. No dysuria. No hematuria. Vaccine Manager: No vaginal discharge. Respiratory: Has shortness of breath. Cardiovascular: Has leg swelling. Endocrine: No polydipsia. Skin: No rash. Neuro: Has neuropathy. Musculoskeletal: No weakness. Physical Examination: Vital Signs: When I saw the patient; blood pressure 126/73, pulse of 102, afebrile. Chest: Clear to auscultation. Heart: S1, S2. Regular rhythm. Abdomen: Soft, nontender, morbidly obese. Could not appreciate any organomegaly. Extremities: +1 edema. Neurological: Alert, oriented x3. No focality. Laboratory Data: Chest x-ray; no cardiomegaly, marginal congestion, chest clear to auscultation. So dium 137, potassium 3.4, bicarb 25, BUN 37, creatinine 1.5, GFR of 37, calcium 8.8, albumin of 3.6. WBC 12.5, hemoglobin 10.4. Urinalysis negative for infection, specific gravity of 1.030. Current Medications: The patient on include losartan, hydrochlorothiazide, atorvastatin, heparin dri p, gabapentin, Tylenol, allopurinol. Assessment And Plan: 1.Acute kidney injury secondary to prerenal, superimposed with ARB and hydrochlorothiazide with the presence of anemia and provoked PE. To rule out any autoimmune disease, I am going to send for full serology for the patient and we will follow up the patient and we will send for serum protein electro phoresis to evaluate if there is any light chain disease. 2.Hypertension with the presence of acute kidney injury. Hold losartan, hydrochlorothiazide and we will monitor the patient. 3.Anemia with the presence of acute kidney injury. Send anemia workup. Send for serum protein elec trophoresis. 4.Edema possible secondary to pulmonary hypertension. I am going to accept the edema for the time b eing. We will discontinue hydrochlorothiazide and we will follow up the patient. We will start on I V fluid for the time being. 5.Diabetes as by primary. 6.Pulmonary embolism. Follow up primary. 7.With the presence of acute kidney injury, we will follow up renal function in the 24-48 hours to s ee if any other residual of the acute kidney injury and we will send for serology to rule out any aut oimmune disease. 8.Gout. Agree with continue allopurinol. Thank you, Dr. Bourgeois for allowing us to participate in the care of your patient. Time spent examining the patient [id number], reviewing data, lab and radiology, placing order, disc ussing the case with the cafeteria team leader including hospitalist and nursing staff more than 75 minutes. JOSÉ MIGUEL Voice ID: [id number] Report ID: [id number]
--- NOTE | 2023-05-29 16:48 | P.PN ---
Subjective Date of Service: 05/29/23 Subjective: No new changes, No C/O voiced Patient still having some pain in the left leg. We will get physical therapy involved in patient's care as well. She states she normally walks about a block daily. Review of Systems 10-point ROS is otherwise unremarkable Physical Examination - Vital Signs Temperature: 97.4 F Blood Pressure: 117/69 Pulse: 100 Respirations: 18 Pulse Ox (%): 99 - Physical Exam General: Alert, In no apparent distress, Oriented x3, Obese Respiratory: Clear to auscultation bilaterally, Normal air movement Cardiovascular: Regular rate/rhythm, Normal S1 S2, No murmurs Gastrointestinal: Normal bowel sounds, Soft and benign, Non-distended, No tenderness Musculoskeletal: No clubbing, No tenderness, Swelling Integumentary: No rashes Neurological: Sensation intact, Cranial nerves 3-12 intact - Studies Medications List Reviewed: Yes Assessment & Plan - Problems (Diagnosis) (1) Bilateral pulmonary embolism Current Visit: Yes Status: Acute (2) Left leg pain Current Visit: Yes Status: Acute (3) Hypertension Current Visit: Yes Status: Acute (4) Osteoarthritis Current Visit: Yes Status: Acute (5) Acute renal insufficiency Current Visit: Yes Status: Acute (6) Anemia Current Visit: Yes Status: Acute Qualifiers: Anemia type: unspecified type Qualified Code(s): D64.9 - Anemia, unspecified (7) Hypokalemia Current Visit: Yes Status: Acute - Plan Plan: 1. Continue with anticoagulation 2. Cardiology consultation 3. Echocardiogram 4. Antiplatelet therapy and statin therapy 5. Serial troponins 6. Lipid profile 7. Venous Doppler 8. Physical therapy evaluation 9. Continue with monitoring renal function; renal ultrasound 10. H&H 11. Supplement electrolytes including potassium 12. GI and DVT prophylaxis Discharge Plan: Home Plan to discharge in: Greater than 2 days - Advance Directives Does patient have a Living Will: No Does patient have a Durable POA for Healthcare: No - Code Status/Comfort Care Code Status: Full Code Physician Review: Patient Assessed, Agree with Above Assessment and Plan Critical Care: No Time Spent Managing PTS Care (In Minutes): 35
--- NOTE | 2023-05-29 18:10 | CON ---
Date of Consultation: 05/29/2023 Reason For Consultation: Pulmonary embolism. History Of Present Illness: A 62-year-old female, past medical history of obesity, hypertension, art hritis, diabetes, presented short of breath with exertion and dry cough. No history of pulmonary emb olism and there is no history of being immobile. Denies having any chest pain and appears to be rest ing comfortably. Past Medical History: As outlined above in the HPI. Medications: Refer to reconciliation sheet for detailed list. Allergies: NO KNOWN DRUG ALLERGIES. Family History: No premature coronary artery disease or cancer. Social History: Does not smoke or drink. Does not use any drugs. Review of Systems: All systems reviewed and they were negative except what mentioned in HPI. Physical Examination: Vital Signs: Reviewed. Head and Neck: Pupils are equal, reactive to light. Intact eye movements. No JVD. No cervical lym phadenopathy. Neck is supple. Thyroid is not enlarged. Lungs: Clear to auscultation bilaterally. No rhonchi, wheezing, or crackles. No accessory muscle u se. Heart: Regular rate and rhythm. No extra sounds. Abdomen: Soft, nontender. Bowel sounds positive. No organomegaly. No masses or hernia. No rigidi ty or rebound. Extremities: No clubbing or cyanosis. Intact pulses. Skin: No rash. Neurologic: Alert, awake, oriented x3. No acute focal deficits appreciated. Lymph Nodes: No cervical or axillary lymphadenopathy. Investigations: PTT was 221 and hemoglobin is 10.4 and creatinine is 1.58. Troponin 1503 and went d own to 1143. Assessment And Recommendations: 1.Pulmonary embolism. Agree with IV heparin. There is no report available of the CTA. We understa nd the burden of the pulmonary embolism and we will discuss with Radiology and further recommendation accordingly and obtain an echocardiogram tomorrow. The patient appears to be hemodynamically and cl inically stable. 2.Elevated troponin, likely due to the pulmonary embolus, but she will need ischemia workup. At one point, we will obtain a Lexiscan nuclear stress test. 3.Renal failure. Re-evaluate after proper hydration. SR/MODL Voice ID: [id number] Report ID: [id number]
[2023-05-29] MEDS: ATORVASTATIN 20 MG TAB PO SCH (20:38)
[2023-05-30 03:28] LABS: Absolute Lymphocytes (CBC) 2.7 K/uL (0.7-4.9); Lymphocytes % 29.3 % (15.3-44.8); MCV 84.7 fL (80-100); MPV 8.1 fL (7.6-11.3); Platelets 216 thou/uL (152-406); RBC Red Blood Cell Count 3.55 M/uL (3.86-4.86)
[2023-05-30 04:03] LABS: Troponin High Sensitivity 389.7 pg/mL (<58.9)
[2023-05-30 04:18] LABS: Albumin 3.2 g/dL (3.4-5.0); Ferritin 581.9 ng/mL (8-388); Phosphorus 3.5 mg/dL (2.5-4.9); Potassium 3.9 mEq/L (3.5-5.1); Uric Acid 7.1 mg/dL (2.6-6.0)
[2023-05-30 04:21] LABS: Thyroid Stimulating Hormone 4.51 uIU/mL (0.358-3.740)
[2023-05-30] MEDS ORDERED: HEPARIN 5000 UNIT/ML 1 ML VIAL IV SCH (05:00)
[2023-05-30] MEDS ORDERED: HOME MED 1 EA UNK (Losartan/Hydrochlorothiazide [Losartan-Hctz 100-25 Mg Tab] 1 EACH Table PO SCH (09:00)
[2023-05-30] MEDS: allopurinoL 100 MG TAB PO SCH (09:00)
[2023-05-30] MEDS ORDERED: POTASSIUM CL SA 10 MEQ TAB PO ONE ×2 (09:00→17:48)
[2023-05-30] MEDS ORDERED: HOME MED 1 EA UNK (Linagliptin [Tradjenta] 5 MG Tablet) PO SCH (09:00)
[2023-05-30] MEDS: GABAPENTIN 100 MG CAP PO SCH (09:00)
[2023-05-30] MEDS: ASPIRIN EC 81 MG TAB PO SCH (09:00)
[2023-05-30 09:03] LABS: Rheumatoid Factor NEG (NEG)
--- NOTE | 2023-05-30 09:46 | RAD REPORT ---
EXAM DESCRIPTION: CT - Chest For Pe Angio - 05/29/2023 6:55 am ADDENDUM #1 THIS REPORT CONTAINS FINDINGS THAT MAY BE CRITICAL TO PATIENT CARE: The findings were verbally discus sed via telephone conference with Dr. Omar Mccall by Dr. Josué Maurice on 05/29/2023 12:48 AM CDT . The results were acknowledged and understood. Electronically signed by: Debbie Maurice MD 05/29/2023 12:48 AM CDT End of Addendum EXAM DESCRIPTION: CT Angiography Chest With Intravenous Contrast CLINICAL HISTORY: The patient is 62 years old and is Female; DYSPNEA TECHNIQUE: Axial computed tomographic angiography images of the chest with intravenous contrast. S agittal and coronal reformatted images were created and reviewed. This CT exam was performed using one or more of the following dose reduction techniques: automated exposure control, adjustment of t he mA and/or kV according to patient size, and/or use of iterative reconstruction technique. MIP reconstructed images were created and reviewed. Report is based on review of 811 images provid ed at the time of interpretation. COMPARISON: No relevant prior studies available. FINDINGS: PULMONARY ARTERIES: Filling defect within the right main pulmonary artery extending into the right middle and right lower lobe pulmonary arteries and their branches is noted. Filling defect within the left main pulmonary artery extending into the left upper lobe, lingula, and left lower lo be pulmonary arteries and their branches is present. There is no saddle embolus. AORTA: No acute findings. No thoracic aortic aneurysm. LUNGS: Unremarkable. No mass. No consolidation. PLEURAL SPACE: Unremarkable. No significant effusion. No pneumothorax. HEART: Unremarkable. No cardiomegaly. No significant pericardial effusion. No evidence of R V dysfunction. BONES/JOINTS: Multilevel degenerative change of the spine is present. No acute fracture. No d islocation. SOFT TISSUES: Unremarkable. LYMPH NODES: Unremarkable. No enlarged lymph nodes. IMPRESSION: Bilateral pulmonary thromboemboli. No saddle embolus. No evidence to suggest right heart strain. Electronically signed by: Debbie Maurice MD 05/29/2023 12:36 AM CDT Due to temporary technical issues with the PACS/Fluency reporting system, reports are being signed by the in house radiologist without review as a courtesy to ensure prompt reporting. The interpreting r adiologist is fully responsible for the content of the report.
--- NOTE | 2023-05-30 09:49 | RAD REPORT ---
EXAM DESCRIPTION: RAD - Chest Single View - 05/28/2023 10:56 pm CLINICAL HISTORY: 62-year-old female with dyspnea. TECHNIQUE: Single view, AP portable chest was obtained. COMPARISON: None. FINDINGS: Unremarkable cardiac and mediastinal silhouette. Heart size is normal. Lungs are clear without focal opacity, pneumothorax or pleural effusions. The visualized bones are within normal limits. IMPRESSION: No acute cardiopulmonary abnormalities. Electronically signed by: Alka Burleson MD 05/28/2023 11:28 PM CDT Due to temporary technical issues with the PACS/Fluency reporting system, reports are being signed by the in house radiologist without review as a courtesy to ensure prompt reporting. The interpreting r adiologist is fully responsible for the content of the report.
--- NOTE | 2023-05-30 13:26 | ECHO ---
HEIGHT: 5 ft 2 in WEIGHT: 246 lb 0 oz DATE OF STUDY: 05/30/[address]: Baltazar Bourgeois MD 2-DIMENSIONAL: YES M.MODE: YES DOPPLER: YES COLOR FLOW: YES TDS: PORTABLE: YES DEFINITY: BUBBLE STUDY: DIAGNOSIS: ACUTE CORONARY SYNDROME/ PULMONARY EMBOLISM CARDIAC HISTORY: CATHERIZATION: NO SURGERY: NO PROSTHETIC VALVE: NO PACEMAKER: NO MEASUREMENTS (cm) DIASTOLIC (NORMALS) SYSTOLIC (NORMALS) IVSd 0.9 (0.6-1.2) LA Diam 2.6 (1.9-4.0) LVEF 52% LVIDd 3.9 (3.5-5.7) LVIDs 2.9 (2.0-3.5) %FS 26% LVPWd 1.0 (0.6-1.2) Ao Diam 2.4 (2.0-3.7) 2 DIMENSIONAL ASSESSMENT: RIGHT ATRIUM: NOT WELL SEEN LEFT ATRIUM: NORMAL RIGHT VENTRICLE: NOT WELL SEEN LEFT VENTRICLE: NORMAL TRICUSPID VALVE: MILD TRICUSPID REGURGITATION MITRAL VALVE: NORMAL PULMONIC VALVE: NORMAL AORTIC VALVE: MILD AORTIC INSUFFICIENCY PERICARDIAL EFFUSION: NONE AORTIC ROOT: NORMAL LEFT VENTRICULAR WALL MOTION: UNABLE TO EVALUATE (POOR WINDOWS) DOPPLER/COLOR FLOW: SEE BELOW COMMENTS: 1. POOR WINDOWS 2. LEFT VENTRICULAR EJECTION FRACTION APPEARS NORMAL 3. MILD TRICUSPID REGURGITATION 4. MILD AORTIC INSUFFICIENCY TECHNOLOGIST: MAINE DURAND
[2023-05-30] MEDS: RIVAROXABAN 15 MG TABLET PO SCH ×2 (14:05→20:08)
--- NOTE | 2023-05-30 16:47 | P.PN ---
Subjective Date of Service: 05/30/23 Chief Complaint: Shortness of breath No acute events overnight. She reports mild chest discomfort this morning. She states that the pain occurs without any obvious inciting or alleviating factors. She grades the pain a 7/10 and states that it is non-radiating. Cardiology is aware and planning on a nuclear stress test. She denies any shortness of breath or palpitations. Review of Systems 10-point ROS is otherwise unremarkable Cardiovascular: Chest Pain Physical Examination - Vital Signs Temperature: 97.9 F Blood Pressure: 142/72 Pulse: 104 Respirations: 16 Pulse Ox (%): 95 - Physical Exam General: Alert, In no apparent distress, Oriented x3 HEENT: Atraumatic, Mucous membr. moist/pink, Sclerae nonicteric Neck: JVD not distended Respiratory: Clear to auscultation bilaterally, Normal air movement Cardiovascular: No edema, Regular rate/rhythm, Normal S1 S2, No gallops, No rubs, No murmurs Gastrointestinal: Normal bowel sounds, Soft and benign, Non-distended, No tenderness, No rebound, No guarding Musculoskeletal: No clubbing Integumentary: No rashes Neurological: Normal speech, Normal affect - Studies Medications List Reviewed: Yes Assessment And Plan - Plan # Bilateral Pulmonary Embolism - Evaluation thus far: - D-Dimer = 17,609 - CT chest angiogram = "bilateral pulmonary thromboemboli. No saddle embolus. No evidence to suggest right heart strain." - Bilateral lower extremity Doppler = "no DVT in either lower extremity." - Management plan: - Continue IV heparin drip - Appreciate Cardiology recommendations # Suspect Demand Ischemia (Type II Non-ST Segment Elevation Myocardial Infarction) due to above - Evaluation thus far: - EKG without STEMI criteria - Chest x-ray = "no acute cardiopulmonary abnormalities." - Serial troponin: 1503.6 -> 1143.1 -> 788.2 -> 389.7 - Transthoracic echocardiogram = "1. Poor windows 2. Left ventricular ejection fraction appears normal 3. Mild tricuspid regurgitation 4. Mild aortic insufficiency" - Management plan: - Cardiology consulted and she was evaluated by Dr. Correa - recommendations appreciated - Plan for nuclear stress test tomorrow # KDIGO Stage I Acute Kidney Injury - Evaluation thus far: - Creatinine = 1.58 -> 1.25 (creatinine was 0.88 on 07/23/2022) - Urinalysis = unremarkable - Renal US = "no right renal abnormalities. Left kidney was obscured by over shadowing bowel. Incidentally noted large gallstone" - Management plan: - Nephrology consulted - recommendations appreciated - Monitor creatinine and urine output - Renally dose medications # Hypertension - Hold home losartan, hydrochlorothiazide given YULIET # Type II Diabetes Mellitus - Continue home linagliptin # Gout - Continue home allopurinol # Cholelithiasis - Follow-up with General Surgery as an outpatient for possible elective cholecystectomy Arian Zaldivar M.D.
--- NOTE | 2023-05-30 17:27 | PN ---
Date of Progress Note: 05/30/2023 Subjective: Seen by bedside. No chest pain. No shortness of breath. Review of Systems: No chest pain, shortness of breath, orthopnea, cough. No nausea, vomiting, diarrhea. All other syst ems reviewed are negative. Physical Examination: Vital signs: Reviewed. Head and Neck: Pupils are equal, reactive to light. Intact eye movements. No JVD. No cervical lym phadenopathy. Neck is supple. Thyroid is not enlarged. Lungs: Clear to auscultation bilaterally. No rhonchi, wheezing, or crackles. No accessory muscle u se. Heart: Regular rate and rhythm. No extra sounds. Abdomen: Soft, nontender. Bowel sounds positive. No organomegaly. No masses or hernia. No rigidi ty or rebound. Extremities: No edema, clubbing, or cyanosis. Intact pulses. Skin: No rashes. Neurologic: Alert, awake, oriented x3. No acute focal deficits appreciated. Lymph Nodes: No cervical lymphadenopathy. Investigations: BUN is 26, creatinine 1.25 and hemoglobin is 10. Troponins 389. Assessment/recommendations: 1.Bilateral pulmonary embolism. It is not massive pulmonary embolism. To discontinue the heparin n ow. To start the patient on Xarelto 15 mg twice a day for 3 weeks and then 20 mg daily. 2.Elevated troponin. Obtain a Lexiscan nuclear stress test prior to discharge. Her ejection fracti on on echo was normal. SR/MODL Voice ID: [id number] Report ID: [id number]
[2023-05-30] MEDS: ATORVASTATIN 20 MG TAB PO SCH (20:08)
[2023-05-30] MEDS ORDERED: RIVAROXABAN 15 MG TABLET PO SCH (21:00)
[2023-05-31 04:41] LABS: Albumin 3.2 g/dL (3.4-5.0); Magnesium 2.1 mg/dL (1.6-2.4); Phosphorus 3.7 mg/dL (2.5-4.9); Potassium 4.1 mEq/L (3.5-5.1)
--- NOTE | 2023-05-31 05:28 | PN ---
Date of Progress Note: 05/30/2023 Chief Complaint: Elevated BUN and creatinine. Subjective: The patient is a 62-year-old woman with significant past medical history of diabetes rivas litus complicated by neuropathy, hypertension, gouty arthritis on allopurinol, and obesity. The saleem ent came to the hospital because of generalized weakness. Primary workup showed elevation of BNP. C T scan with contrast was done and showed positive changes for PE. The patient is admitted to the [facility]. Serum creatinine level was elevated up to 1.5 and GFR 37. She received CT scan with contrast for PE protocol to evaluate for etiology of shortness of breath. The patient denies new medication. She does not take nonsteroidal antiinflammatory medication and she does not take Bactrim. Review of Systems: Denies chest pain or palpitation. Physical Examination: Lungs: Clear to auscultation bilaterally. Heart: S1, S2. Abdomen: Soft. Extremities: 1+ edema. Impression And Plan: 1.Acute kidney injury secondary to prerenal azotemia superimposed with effect of angiotensin recepto r diana and hydrochlorothiazide. Monitor electrolytes closely. Sodium level is within normal limi ts. The patient received IV contrast. The patient may benefit from mild hydration after IV contrast exposure. 2.Hypertension. Losartan is on hold due to acute kidney injury. Adjust blood pressure medication. 3.Edema, possible effect secondary to pulmonary hypertension. Monitor fluid balance and continue lo w-sodium diet. The patient may need a lower extremity venous Doppler to rule out deep venous thrombo sis. 4.Pulmonary embolism per Primary. 5.Gout. Continue allopurinol. The patient is asymptomatic. There is no gout flare at this point. JULIO CESAR/PAYAL Voice ID: [id number] Report ID: [id number]
[2023-05-31] MEDS ORDERED: REGADENOSON 0.4 MG/5 ML SYR IV ONE (07:28)
[2023-05-31] MEDS: ASPIRIN EC 81 MG TAB PO SCH (08:24)
[2023-05-31] MEDS: allopurinoL 100 MG TAB PO SCH (08:24)
[2023-05-31] MEDS: RIVAROXABAN 15 MG TABLET PO SCH (08:24)
[2023-05-31] MEDS: GABAPENTIN 100 MG CAP PO SCH (08:27)
[2023-05-31] MEDS ORDERED: HOME MED 1 EA UNK (Linagliptin [Tradjenta] 5 MG Tablet) PO SCH (09:00)
--- NOTE | 2023-05-31 09:28 | RAD REPORT ---
EXAM DESCRIPTION: NM - Rest Stress Cardiac Imaging - 05/31/2023 8:43 am CLINICAL HISTORY: Elevated troponin COMPARISON: None. TECHNIQUE: The patient was administered 10. mCi of Tc 99m Sestamibi prior to resting SPECT imaging o f the heart. The patient was then administered 30. MCi of Tc 99m Sestamibi following exercise or pha rmacologic stress. Multiplanar SPECT images were reviewed. FINDINGS: There is uniformity of radiotracer uptake involving the entire left ventricular myocardiu m on rest and stress images. The left ventricular ejection fraction equals 57% IMPRESSION: Negative for a myocardial perfusion defect
[2023-05-31 12:28] VITALS: O2SAT 97
[2023-05-31 12:32] VITALS: TEMP 98.1
--- NOTE | 2023-05-31 14:41 | P.DS ---
Admission Date: 05/29/23 Discharge Date: 05/31/23 Disposition: ROUTINE DISCHARGE Discharge Condition: GOOD Reason for Admission: Shortness of breath Consultations: 1. Cardiology 2. Nephrology Hospital Course: DIAGNOSES: # Bilateral Pulmonary Emboli without Cor Pulmonale # Suspect Demand Ischemia (Type II Non-ST Segment Elevation Myocardial Infarction) due to above # KDIGO Stage I Acute Kidney Injury # Hypertension # Type II Diabetes Mellitus # Gout # Cholelithiasis # Subclinical Hypothyroidism HOSPITAL COURSE: Ms. Deepika Brown is a pleasant 62 year old female with a past medical history significant for type II diabetes mellitus, hypertension, and gout who was admitted to the [facility] on 05/29/2023 for shortness of breath. She was admitted to the Medicine service. Upon further evaluation, her chest x- ray revealed, "no acute cardiopulmonary abnormalities." Her d-dimer was 17,609. Her serial troponin were 1503.6 -> 1143.1 -> 788.2 -> 389.7. Her CT chest angiogram revealed, "bilateral pulmonary thromboemboli. No saddle embolus. No evidence to suggest right heart strain." Her bilateral lower extremity Doppler revealed, "No DVT in either lower extremity." Her transthoracic echocardiogram revealed, "1. poor windows 2. left ventricular ejection fraction appears normal 3. mild tricuspid regurgitation 4. mild aortic insufficiency." She was started on a heparin drip and Cardiology was consulted and she was evaluated by Dr. Correa. He recommended switching the heparin drip to rivaroxaban and obtaining a nuclear stress test, which revealed, "negative for a myocardial perfusion defect." Dr. Correa has cleared her for discharge with outpatient follow-up. Incidentally, she was found to have a stage I acute kidney injury. Her renal ultrasound revealed, "no right renal abnormalities. Left kidney was obscured by over shadowing bowel. Incidentally noted large gallstone." Nephrology was consulted and she was evaluated by Dr. Armando. Over the course of her hospitalization, her creatinine improved/stabilized. Dr. Armando has cleared her for discharge with outpatient follow-up. She was also found to have a large gallstone. She was advised to follow-up with General Surgery as an outpatient for evaluation for an elective cholecystectomy. On 05/31/2023, she was seen on rounds and deemed medically stable for discharge. She was discharged with instructions to schedule follow-up appointments with her PCP (Dr. Almanza), with Cardiology (Dr. Correa), with Nephrology (Dr. Armando), and General Surgery (Dr. Sinha). She was provided a prescription for rivaroxaban. She was given the opportunity to ask questions and reported no further questions. Furthermore, all questions were answered to the best of my ability. A copy of this discharge summary will be sent to the above providers to facilitate continuity of care. Today, I personally spent 25 minutes on her case, of which greater than 50% of the time was spent in patient education, counseling, and coordination of care as described above. - Physical Exam General: Alert, In no apparent distress, Oriented x3 HEENT: Atraumatic, Mucous membr. moist/pink, Sclerae nonicteric Respiratory: Clear to auscultation bilaterally, Normal air movement Cardiovascular: No edema, Regular rate/rhythm, No murmurs Gastrointestinal: Normal bowel sounds, Soft and benign, Non-distended, No tenderness Musculoskeletal: No clubbing Integumentary: No rashes Neurological: Normal speech, Normal affect Vital Signs/Physical Exam: Temp Pulse Resp BP Pulse Ox 98.1 F 89 16 134/73 97 05/31/23 12:00 05/31/23 12:00 05/31/23 12:00 05/31/23 12:00 05/31/23 12:00 Laboratory Data at Discharge: WBC 9.40 thou/uL (4.3-10.9) 05/30/23 02:54 Hgb 10.0 g/dL (12.0-15.0) L 05/30/23 02:54 Hct 30.0 % (36.0-45.0) L 05/30/23 02:54 Plt Count 216 thou/uL (152-406) 05/30/23 02:54 PT 11.5 SECONDS (9.5-12.5) 05/28/23 22:40 INR 1.05 05/28/23 22:40 APTT 83.5 SECONDS (24.3-36.9) H 05/30/23 09:50 Sodium 137 mEq/L (136-145) 05/31/23 03:40 Potassium 4.1 mEq/L (3.5-5.1) 05/31/23 03:40 BUN 22 mg/dL (7-18) H 05/31/23 03:40 Creatinine 1.34 mg/dL (0.55-1.02) H 05/31/23 03:40 Glucose 119 mg/dL (74-106) H 05/31/23 03:40 Uric Acid 7.1 mg/dL (2.6-6.0) H 05/30/23 02:54 Phosphorus 3.7 mg/dL (2.5-4.9) 05/31/23 03:40 Magnesium 2.1 mg/dL (1.6-2.4) 05/31/23 03:40 Total Bilirubin 0.2 mg/dL (0.2-1.0) 05/28/23 22:40 AST 14 U/L (15-37) L 05/28/23 22:40 ALT 17 U/L (13-56) 05/28/23 22:40 Alkaline Phosphatase 71 U/L (45-117) 05/28/23 22:40 Triglycerides 176 mg/dL (<150) H 05/30/23 02:54 Cholesterol 151 mg/dL (<200) 05/30/23 02:54 HDL Cholesterol 38 mg/dL (40-60) L 05/30/23 02:54 Cholesterol/HDL Ratio 3.97 05/30/23 02:54 Home Medications: Allopurinol 100 mg PO DAILY 05/29/23 Atorvastatin Calcium [Lipitor*] 20 mg PO DAILY 05/29/23 Gabapentin 100 mg PO DAILY 05/29/23 Linagliptin [Tradjenta] 5 mg PO DAILY 05/29/23 Rivaroxaban [Xarelto*] 15 mg PO BID 19 Days #38 tab 05/31/23 Rivaroxaban [Xarelto] 20 mg PO DAILY 6PM #30 tab 05/31/23 New Medications: Rivaroxaban [Xarelto] 20 mg PO DAILY 6PM #30 tab Rivaroxaban [Xarelto*] 15 mg PO BID 19 Days #38 tab Physician Discharge Instructions: 1. Please call and schedule a follow-up appointment with your PCP (Dr. Almanza) in 3-5 days - Your blood work showed mild anemia. Please discuss further evaluation, including a colonoscopy, with your PCP - Your thyroid tests were slightly abnormal. Please have your PCP repeat this bloodwork. 2. Please call and schedule a follow-up appointment with Cardiology (Dr. Correa) in 5-7 days - You have been started on a blood thinner called rivaroxaban (Xarelto) - Please take 15 mg two times per day until 06/19/2023 - On 06/20/2023, please start taking 20 mg once per day - Please have your PCP or Cardiology refill this medication for you 3. Please call and schedule a follow-up appointment with Nephrology (Dr. Armando) in 5-7 days - Please stop taking your losartan-hydrochlorothiazide until you see Nephr ology 4. Please call and schedule a follow-up appointment with General Surgery (Dr. Sinha) in 5-7 days - You were found to have a gallbladder stone. Please follow-up with General Surgery to discuss risks/benefits of gallbladder removal surgery. Diet: ADA Activity: Ad adelfo Followup: Liban Almanza, [ACTIVE - CAN ADMIT] - Rashid Correa MD [ACTIVE - CAN ADMIT] - Nixon Armando MD [ACTIVE - CAN ADMIT] - Sg Sinha MD [ACTIVE - CAN ADMIT] - Time spent managing pt's care (in minutes): 25
--- NOTE | 2023-05-31 15:25 | PN ---
Date of Progress Note: 05/31/2023 Subjective: The patient was admitted to the hospital with acute kidney injury secondary to cardioren al with exposure to contrast. The patient also was on hydrochlorothiazide and ARB. The patient was started on gentle hydration, hydrochlorothiazide, and ARB was discontinued. CT contrast was done on the 26. The patient feeling better. Physical Examination: Vital Signs: Blood pressure 134/73, pulse of 89, afebrile. The patient had good urine output. Chest: Clear to auscultation. Heart: S1, S2. Regular. Abdomen: Soft, nontender. Extremity: Trace edema. Neurologic: Alert. No focality. Laboratory Data: Sodium 137, potassium 4.1, bicarb 28, BUN 22, creatinine 1.3, GFR of 45, calcium 9, phosphorus 3.7, magnesium 2.1, albumin 3.2, corrected calcium is 9.8. PTH 85. Serum protein electr ophoresis pending. Hemoglobin of 10. Current Medications: The patient on include; 1.Aspirin. 2.Xarelto. 3.Atorvastatin. 4.Gabapentin. 5.Zofran. 6.Allopurinol. 7.KCl. Assessment And Plan: 1.Acute kidney injury secondary to prerenal, superimposed with hydrochlorothiazide and losartan. Ob structive uropathy has been ruled out. Small size kidney, left kidney was not visualized. PC ratio is still pending. I am going to keep holding losartan, hydrochlorothiazide and we will monitor. Fol lowup workup. The patient passed more than 72 hours after contrast and recovering, so contrast-induc ed nephropathy has been ruled out. 2.Gout. Continue allopurinol. 3.Edema possible secondary to pulmonary hypertension. Keep holding hydrochlorothiazide. We will co nsider rechallenge as outpatient. 4.Diabetes as by primary. 5.PE. Follow up with primary. Continue Xarelto, dose appropriate. The patient cleared from the Re nal standpoint for discharge planning to follow up in the office in 2-3 weeks. RAOUL/PAYAL Voice ID: [id number] Report ID: [id number]
[2023-05-31 16:35] VITALS: BP 151/79
--- NOTE | 2023-05-31 19:22 | PN ---
Date of Progress Note: 05/31/2023 Subjective: Seen by bedside. Asymptomatic. Review of Systems: No chest pain, shortness of breath, orthopnea, or cough. No nausea, vomiting, or diarrhea. All othe r systems were reviewed, they were negative. Objective: Vital Signs: Reviewed. Head and Neck: Pupils are equal, reactive to light. Intact eye movements. No JVD. No cervical lym phadenopathy. Neck is supple. Thyroid is not enlarged. Lungs: Clear to auscultation bilaterally. No rhonchi, wheezing, or crackles. No accessory muscle u se. Heart: Regular rate and rhythm. No extra sounds. Abdomen: Soft, nontender. Bowel sounds positive. No organomegaly. No masses or hernia. No rigidi ty or rebound. Extremities: No edema, clubbing, or cyanosis. Intact pulses. Skin: No rash. No nodule. Neurologic: Alert, awake, oriented x3. No acute focal deficits appreciated. Investigations: BUN 22, creatinine 1.34. Stress test was negative for ischemia. Assessment And Recommendations: 1.Bilateral pulmonary embolism. It is not massive. Continue Xarelto 15 mg twice a day for 3 weeks and then 20 mg daily after that and follow up as an outpatient. 2.Elevated troponin. This is demand ischemia due to pulmonary embolism. As pulmonary embolism stud y was negative, patient can be released from cardiology standpoint and to follow up with me in the office in 1 month. /PAYAL Voice ID: [id number] Report ID: [id number]
--- NOTE | 2023-06-01 07:47 | TREADPHA ---
DX: ELEVATED TROPONIN Date of Study: 05/31/2023 Ht: 5' 2 " Wt: 246 lb 0 oz Consulting Physician: AMANDA MEDICATIONS: TYLENOL, ZYLOPRIM, XANAX, ASPIRIN, LIPITOR, DEXTROSE, NEURONTIN, GLUCAGEN, MORPHINE, ZOFRAN, XARELTO HISTORY: 62 YEAR OLD FEMALE WITH COMPLAINTS OF CHEST PAIN. HISTORY OF DIABETES MELLITUS TYPE II, FAMILY HISTORY OF HEART DISEASE, HYPERTENSION, HYPERLIPIDEMIA, DENIES SMOKING, ALCOHOL, DRUG USE OR PREVIOUS HEART SURGERIES. PHYSICIAL EXAMINATION: RESTING B.P.: 114/72 RESTING H.R.: 76 RESTING EKG: NORMAL SINUS RHYTHM, WITHIN NORMAL LIMITS PROTOCOL: PHARMACOLOGIC EXERCISE TIME: 3:30 B.P. AT PEAK STRESS: 135/79 IMPRESSION: LEXISCAN INJECTED, CARDIOLITE GIVEN PER PROTOCOL. SEE NUCLEAR MEDICINE REPORT. PATIENT DENIES CHEST PAIN OR SHORTNESS OF BREATH. NO SUPRAVENTRICULAR TACHYCARDIA, VENTRICULAR TACHYCARDIA, PREMATURE VENTRICULAR COMPLEXES OR PREMATURE ATRIAL COMPLEXES NOTED. NO ELECTROCARDIOGRAM CHANGES OF ISCHEMIA WITH LEXISCAN.
[2023-06-01 17:45] LABS: Hepatitis C Virus RNA (PCR)log <1.18 log IU/mL
[2023-06-02 14:54] LABS: Albumin, (SPE) 3.5 g/dL (3.8-4.8); Alpha-1-Globulins 0.3 g/dL (0.2-0.3); Alpha-2-Globulins 0.9 g/dL (0.5-0.9); Gamma Globulins 1.2 g/dL (0.8-1.7); INTERPRETATION REPORT
[2023-06-02 18:01] LABS: Protein C Antigen 100 % normal (70-140)
== END 2023-05-31 16:43 | disposition home or self-care (01) | DRG 175 ==
LOC: ER 21:30 → 2ND 05-29 02:02
PROVIDERS: ADMIT Hospitalist; ATTEND Internal Medicine
DX: I26.99 Other pulmonary embolism without acute cor pulmonale (principal); I21.A1 Myocardial infarction type 2; N17.9 Acute kidney failure, unspecified; Z68.41 Body mass index [BMI] 40.0-44.9, adult; E87.6 Hypokalemia; I12.9 Hypertensive chronic kidney disease with stage 1 through stage 4 chronic kidney disease, or unspecified chronic kidney disease; N18.9 Chronic kidney disease, unspecified; E11.22 Type 2 diabetes mellitus with diabetic chronic kidney disease; E11.40 Type 2 diabetes mellitus with diabetic neuropathy, unspecified; D63.1 Anemia in chronic kidney disease; M10.9 Gout, unspecified; M79.605 Pain in left leg; E66.01 Morbid (severe) obesity due to excess calories; K80.20 Calculus of gallbladder without cholecystitis without obstruction; I27.20 Pulmonary hypertension, unspecified; E03.8 Other specified hypothyroidism; I08.2 Rheumatic disorders of both aortic and tricuspid valves; M19.90 Unspecified osteoarthritis, unspecified site; J45.909 Unspecified asthma, uncomplicated; D72.829 Elevated white blood cell count, unspecified; Z79.01 Long term (current) use of anticoagulants; Z79.899 Other long term (current) drug therapy; Z90.710 Acquired absence of both cervix and uterus; Z20.822 Contact with and (suspected) exposure to COVID-19
CPT/HCPCS: 36415; 71045; 71275; 76770; 78452; 80048; 80061; 80069; 80076; 81001; 82550; 82607; 82728; 83520; 83540; 83735; 83880; 83970; 84132; 84165; 84439; 84443; 84466; 84484; 84550; 85025; 85044; 85302; 85305; 85306; 85379; 85610; 85730; 86021; 86038; 86160; 86225; 86430; 87522; 87635; 93005; 93017; 93306; 93970; 94760; 96365; 96366; 99285; A9500; J1644; J2785; Q9967

== ENCOUNTER 2024-01-27 16:38 | Emergency (ER) | payer MEDICARE ==
--- OUTSIDE RECORDS SUMMARY | 2024-01-27 16:42 | XMS REPORT | Continuity of Care Document ---
Author Name Unknown Address [address] [facility] [address] [place] [address] [facility] Address [address] [facility] 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 Role Phone Aileen HOLLINS, [facility] Primary Care Physician [phone] Liban Almanza Attending Clinician Unavailable Louis Lloyd Attending Clinician Unavailable Janice Babin Attending Clinician [phone] Navya Lainez Attending Clinician Unavailable ANNAMARIA_GCBZW_Nakia_Michelle Attending Clinician Unavailmarilyn DEAN Attending Clinician Unavailable Amina Jordan Attending Clinician Arin Carrasquillo Attending Clinician Unavailable Den Do Attending Clinician QUINTON HOOPER Attending Clinician Jing RAFAEL Zimmerman Attending Clinician Unavail able Ro Christianson Attending Clinician [phone] Doctor Unassigned, [place] Attending Clinician ROLA Calvillo Attending Clinician UnavailRola Humphrey MD Attending Clinician [phone] GC_GCBZW_Kadiyala_S Admitting Clinician Unavaila ble OWENS_T Admitting Clinician Unavailable JovelKathleen peña Izabela Admitting Clinician Unavailable Payers Payer Name Policy Type Policy Number Effective Date Expirati on Date Source [facility] [id number] [53] ADM [id number] 2004 00:00:00 2050 00:00:00 [facility] (MEDICARE REPLACEMENT HMO) [id number] 2021 00:00:00 Problems Condition Name Condition Details Condition Category Status Onset Date Resolution Date Last Treatment Date Treating Clinician Comments Source [id number] Mixed hyperlipid emia Problem [facility] Routine eye exam Routine eye exam Problem [facility] Type II diabetes mellitus well controlled Diabetes type 2, controlled Problem [facility] Migraine Migraines Problem Commo n [facility] Asthma Asthma Problem [facility] Hypertensi on HTN (hypertens ion) Problem [facility] [id number] Primary osteoarthr itis of left knee Problem [facility] Allergic rhinitis Allergic rhinitis, unspecifie d seasonalit y, unspecifie d trigger Problem [facility] [id number] Chronic gout without tophus, unspecifie d cause, unspecifie d site Problem [facility] High cholestero l High cholestero l Problem [facility] [id number] Type 2 diabetes mellitus with hyperglyce sharlene, without long-term current use of insulin Problem [facility] [id number] Type 2 diabetes mellitus with diabetic chronic kidney disease Problem [facility] [id number] Primary hypertensi on Problem [facility] [id number] Calculus of gallbladde r without cholecysti tis without obstructio n Problem [facility] Pulmonary Embolism Pulmonary embolism without acute cor pulmonale, unspecifie d chronicity , unspecifie d pulmonary embolism type Problem [facility] [id number] Morbid (severe) obesity due to excess calories Problem [facility] [id number] Body mass index [BMI] 45.0-49.9, adult Problem [facility] [id number] Body mass index [BMI] 35.0-35.9, adult Problem [facility] [id number] Chronic kidney disease, stage 3 unspecifie d Problem [facility] Allergies, Adverse Reactions, Alerts Allergy Name Allergy Type Status Severity Reaction(s) Onset Date Inactive Date Treating Clinician Comments Source NO KNOWN ALLERGIE S Drug Class Active [facility] Social History Social Habit Start Date Stop Date Quantity Comments Source History of Tobacco Use [facility] Sex Assigned At [facility] Smoking Status Start Date Stop Date Source Never Smoker [facility] Medications Ordered Medication Name Filled Medication Name Start Date Stop Date Current Medication? Ordering Clinician Indication Dosage Frequency Signature (SIG) Comments Components Source Losartan Potassium 25 MG Losartan Potassium 25 MG 2022-10- 00:00: 00 No QD Losartan Potassium 25 MG Losartan Potassium 25 MG Losartan Potassium 25 MG 2022-10 00:00: 00 No QD Losartan Potassium 25 MG Losartan Potassium 25 MG Losartan Potassium 25 MG 2022-10 00:00: 00 No QD Losartan Potassium 25 MG FreeStyle Jean 14 Day Sensor - FreeStyle Jean 14 Day Sensor - 2021-10 00:00: 00 No FreeStyle Jean 14 Day Sensor - FreeStyle Jean 14 Day Sensor - FreeStyle Jean 14 Day Sensor - 2021-10 00:00: 00 No FreeStyle Jean 14 Day Sensor - FreeStyle Jean 14 Day Sensor - FreeStyle Jean 14 Day Sensor - 2021-10 00:00: 00 No FreeStyle Jean 14 Day Sensor - TAKE 1 TABLET BY MOUTH EVERY 6 TO 8 HOURS NEEDED FOR PAIN 06-15 00:00: 00 No TAKE 1 TABLET BY MOUTH EVERY 6 TO 8 HOURS NEEDED FOR PAIN 06-15 00:00: 00 No naproxen 500 mg tablet 2 00:00: 00 No 1mg gabapentin 100 mg capsule 2 00:00: 00 No 2mg naproxen 500 mg tablet 2 00:00: 00 No 1mg gabapentin 100 mg capsule 11-09 00:00: 00 No 2mg valsartan 40 mg tablet 05-06 00:00: 00 No 1mg allopurinol 100 mg tablet 05-06 00:00: 00 No 1mg Dose Unknown 05-06 00:00: 00 No Dose Unknown 05-06 00:00: 00 No metformin ER 500 mg 24 hr tablet,exte nded release (gastric) 05-06 00:00: 00 No 1mg gabapentin 100 mg capsule 05-06 00:00: 00 No 1mg valsartan 40 mg tablet 05-06 00:00: 00 No 1mg allopurinol 100 mg tablet 05-06 00:00: 00 No 1mg Dose Unknown 05-06 00:00: 00 No Dose Unknown 05-06 00:00: 00 No metformin ER 500 mg 24 hr tablet,exte nded release (gastric) 05-06 00:00: 00 No 1mg gabapentin 100 mg capsule 05-06 00:00: 00 No 1mg valsartan 40 mg tablet 05-05 00:00: 00 No 1mg allopurinol 100 mg tablet 05-05 00:00: 00 No 1mg furosemide 20 mg tablet 05-05 00:00: 00 No 1mg meloxicam 7.5 mg tablet 05-05 00:00: 00 No 1mg metformin ER 500 mg 24 hr tablet,exte nded release (gastric) 05-05 00:00: 00 No 1mg gabapentin 100 mg capsule 05-05 00:00: 00 No 1mg valsartan 40 mg tablet 05-05 00:00: 00 No 1mg allopurinol 100 mg tablet 05-05 00:00: 00 No 1mg furosemide 20 mg tablet 05-05 00:00: 00 No 1mg meloxicam 7.5 mg tablet 05-05 00:00: 00 No 1mg metformin ER 500 mg 24 hr tablet,exte nded release (gastric) 05-05 00:00: 00 No 1mg gabapentin 100 mg capsule 05-05 00:00: 00 No 1mg terbinafine HCl 1 % topical cream 02-20 00:00: 00 No 1% valsartan 40 mg tablet 02-20 00:00: 00 No 1mg allopurinol 100 mg tablet 02-20 00:00: 00 No 1mg furosemide 20 mg tablet 02-20 00:00: 00 No 1mg metformin ER 500 mg 24 hr tablet,exte nded release (gastric) 02-20 00:00: 00 No 1mg gabapentin 100 mg capsule 02-20 00:00: 00 No 1mg terbinafine HCl 1 % topical cream 02-20 00:00: 00 No 1% valsartan 40 mg tablet 02-20 00:00: 00 No 1mg allopurinol 100 mg tablet 02-20 00:00: 00 No 1mg furosemide 20 mg tablet 02-20 00:00: 00 No 1mg metformin ER 500 mg 24 hr tablet,exte nded release (gastric) 02-20 00:00: 00 No 1mg gabapentin 100 mg capsule 02-20 00:00: 00 No 1mg metformin ER 500 mg 24 hr tablet,exte nded release 11-16 00:00: 00 No 1mg metformin ER 500 mg 24 hr tablet,exte nded release 11-16 00:00: 00 No 1mg valsartan 40 mg tablet 11-15 00:00: 00 No 1mg allopurinol 100 mg tablet - 00:00: 00 No 1mg meloxicam 7.5 mg tablet 11-15 00:00: 00 No 1mg valsartan 40 mg tablet 0 11-15 00:00: 00 No 1mg allopurinol 100 mg tablet 11-15 00:00: 00 No 1mg meloxicam 7.5 mg tablet 11-15 00:00: 00 No 1mg furosemide 20 mg tablet 11-15 00:00: 00 No 1mg gabapentin 100 mg capsule 11-15 00:00: 00 No 1mg furosemide 20 mg tablet 11-15 00:00: 00 No 1mg gabapentin 100 mg capsule 11-15 00:00: 00 No 1mg valsartan 40 mg tablet 2 00:00: 00 No 1mg valsartan 40 mg tablet 11-06 00:00: 00 No 1mg tramadol 50 mg tablet 2018-1016 00:00: 00 No 1mg gabapentin 100 mg capsule 2018-1016 00:00: 00 No 1mg allopurinol 100 mg tablet 2018-1016 00:00: 00 No 1mg losartan 100 mg-hydrochl orothiazide 25 mg tablet 2018-1016 00:00: 00 No 1mg meloxicam 7.5 mg tablet 2018-1016 00:00: 00 No 1mg amlodipine 10 mg tablet 2018-10 216 00:00: 00 No 1mg furosemide 20 mg tablet 2018-10 216 00:00: 00 No 1mg tramadol 50 mg tablet 2018-10 216 00:00: 00 No 1mg gabapentin 100 mg capsule 2018-10 216 00:00: 00 No 1mg allopurinol 100 mg tablet 2018-10 216 00:00: 00 No 1mg losartan 100 mg-hydrochl orothiazide 25 mg tablet 2018-10 2-16 00:00: 00 No 1mg meloxicam 7.5 mg tablet 2018-10 216 00:00: 00 No 1mg amlodipine 10 mg tablet 2018-10 216 00:00: 00 No 1mg furosemide 20 mg tablet 2018-10 216 00:00: 00 No 1mg Bisoprolol- hydroCHLORO thiazide 5-6.25 MG Bisoprolol- hydroCHLORO thiazide 5-6.25 MG No 1{table t} QD Bisoprolol -hydroCHLO ROthiazide 5-6.25 MG Allopurinol 100 MG Allopurinol 100 MG No 1{table t} QD Allopurino l 100 MG Tradjenta 5 MG Tradjenta 5 MG No 1{table t} QD Tradjenta 5 MG Gabapentin 100 MG Gabapentin 100 MG No 1{capsu le} TID Gabapentin 100 MG Xarelto 20 MG Xarelto 20 MG No 1{table t_with_ food} QD Xarelto 20 MG Atorvastati n Calcium 20 MG Atorvastati n Calcium 20 MG No 1{table t} QD Atorvastat in Calcium 20 MG Furosemide 20 MG Furosemide 20 MG No QD Furosemide 20 MG Bisoprolol- hydroCHLORO thiazide 5-6.25 MG Bisoprolol- hydroCHLORO thiazide 5-6.25 MG No 1{table t} QD Bisoprolol -hydroCHLO ROthiazide 5-6.25 MG Allopurinol 100 MG Allopurinol 100 MG No 1{table t} QD Allopurino l 100 MG Tradjenta 5 MG Tradjenta 5 MG No 1{table t} QD Tradjenta 5 MG Gabapentin 100 MG Gabapentin 100 MG No 1{capsu le} TID Gabapentin 100 MG Xarelto 20 MG Xarelto 20 MG No 1{table t_with_ food} QD Xarelto 20 MG Atorvastati n Calcium 20 MG Atorvastati n Calcium 20 MG No 1{table t} QD Atorvastat in Calcium 20 MG Furosemide 20 MG Furosemide 20 MG No QD Furosemide 20 MG Bisoprolol- hydroCHLORO thiazide 5-6.25 MG Bisoprolol- hydroCHLORO thiazide 5-6.25 MG No 1{table t} QD Bisoprolol -hydroCHLO ROthiazide 5-6.25 MG Allopurinol 100 MG Allopurinol 100 MG No 1{table t} QD Allopurino l 100 MG Tradjenta 5 MG Tradjenta 5 MG No 1{table t} QD Tradjenta 5 MG Gabapentin 100 MG Gabapentin 100 MG No 1{capsu le} TID Gabapentin 100 MG Xarelto 20 MG Xarelto 20 MG No 1{table t_with_ food} QD Xarelto 20 MG Atorvastati n Calcium 20 MG Atorvastati n Calcium 20 MG No 1{table t} QD Atorvastat in Calcium 20 MG Furosemide 20 MG Furosemide 20 MG No QD Furosemide 20 MG Vital Signs Vital Name Observation Time Observation Value Comments Michelle laguna height 2023-12-22 09:50:00 62.00 [in_i] Com [facility] weight 2023-12-22 09:50:00 239.0 [lb_av] Co mmon [facility] temperature 2023-12-22 09:50:00 97.5 [degF] Com [facility] bmi 2023-12-22 09:50:00 43.71 kg/m2 Comm on [facility] oximetry 2023-12-22 09:50:00 98 % Commo n [facility] respiratory rate 2023-12-22 09:50:00 18 /min [facility] blood pressure systolic 2023-12-22 09:50:00 120 mm[Hg] [facility] blood pressure diastolic 2023-12-22 09:50:00 76 mm[Hg] [facility] height 2023-12-22 09:50:00 62.00 [in_i] Com [facility] weight 2023-12-22 09:50:00 239.0 [lb_av] Co mmon [facility] temperature 2023-12-22 09:50:00 97.5 [degF] Com [facility] bmi 2023-12-22 09:50:00 43.71 kg/m2 Comm on [facility] oximetry 2023-12-22 09:50:00 98 % Commo n [facility] respiratory rate 2023-12-22 09:50:00 18 /min [facility] blood pressure systolic 2023-12-22 09:50:00 120 mm[Hg] [facility] blood pressure diastolic 2023-12-22 09:50:00 76 mm[Hg] [facility] BP Systolic 2022-08-04 10:20:00 115 mm[Hg] BP [...] /min Respiratory Rate 2019-09-17 13:14:00 16.00 /min Plan of Care Planned Activity Planned Date Details Comments Source Goal Plan of Care Note [code = 06881-4] Goal Plan of Care Note [code = 83216-4] Goal Plan of Care Note [code = 63607-7] Goal Plan of Care Note [code = 65486-4] Goal Plan of Care Note [code = 81254-0] Goal Plan of Care Note [code = 40147-7] Goal Plan of Care Note [code = 95796-0] Goal Plan of Care Note [code = 91827-4] Goal Plan of Care Note [code = 65338-2] Goal Plan of Care Note [code = 36785-8] Goal Plan of Care Note [code = 93255-3] Goal Plan of Care Note [code = 32610-7] Goal Plan of Care Note [code = 44540-2] Goal Plan of Care Note [code = 85811-1] Goal Plan of Care Note [code = 60996-1] Goal Plan of Care Note [code = 69165-7] Goal Plan of Care Note [code = 44908-3] Goal Plan of Care Note [code = 75330-2] Goal Plan of Care Note [code = 23505-6] Goal Plan of Care Note [code = 99888-6] Goal Plan of Care Note [code = 56674-4] Goal Plan of Care Note [code = 10797-1] Goal Plan of Care Note [code = 89388-1] Goal Plan of Care Note [code = 24163-8] Goal Plan of Care Note [code = 68456-3] Goal Plan of Care Note [code = 59701-9] Goal Plan of Care Note [code = 85316-9] Goal Plan of Care Note [code = 80622-4] Goal Plan of Care Note [code = 55998-8] Goal Plan of Care Note [code = 43107-1] Goal Plan of Care Note [code = 39422-7] Goal Plan of Care Note [code = 42731-7] Goal Plan of Care Note [code = 79015-9] Encounters Start Date/Time End Date/Time Encounter Type Admission Type Attending [facility] Care Facility Care Department Encounter ID Source 2023-12-22 09:52:[address] [facility] [id number] [facility] 2023-09-21 12:42:[address] [facility] [id number] [facility] 2023-07-18 11:20:[address] [facility] [id number] [facility] 2023-03-21 08:18:[address] [facility] [id number] [facility] 2023-02-22 15:05:[address] [facility] [id number] [facility] 2023-01-28 08:59:01 Outpatient Louis Lloyd [facility] [id number] [facility] 2022-12-28 13:24:03 Outpatient Louis Lloyd [facility] [id number] [facility] 2021-08-01 12:56:46 Emergency [facility] [id number] [facility] 2023-12-22 00:00:00 2023-12-22 00:00:00 SUB ANNUAL [facility] WELLNESS VISIT [facility] [id number] [facility] 2023-12-22 00:00:00 2023-12-22 00:00:00 (TEL) [facility] [id number] [facility] 2023-12-22 00:00:00 2023-12-22 00:00:00 OFFICE VISIT ESTAB PT LEVEL 4 [facility] [id number] [facility] 2023-10-25 17:00:00 2023-10-25 18:00:00 Annual D2Me Janice Babin 2.16.840. [id number]. [id number] [facility] 2023-09-30 00:00:00 2023-09-30 00:00:00 Outpatient Navya Lainez [facility] [id number] [facility] 2023-08-03 00:00:00 2023-08-03 00:00:00 Outpatient GC_GCBZW_Ka diyala_S PRIV PRIV [id number] [facility] 2023-07-26 00:00:00 2023-07-26 00:00:00 [place] [id number] [place] [address] [facility] 2023-07-15 17:30:00 2023-07-15 17:50:00 MAINTENANCE MILLWRIGHT Panel-dire cted Gap Closure Amina Turner 2.16.840. [id number] 2.16.840.1. [id number] [facility] 2023-04-20 17:00:00 2023-04-20 18:00:00 CAV Amina Turner 2.16.840. [id number] 2.16.840.1. [id number] RUK [facility] 2023-04-14 00:00:00 2023-04-14 00:00:00 Outpatient OW_T DMG [facility] [id number] [facility] 2022-11-22 11:13:59 2022-11-22 11:13:59 Outpatient SFA SFA [id number] Manny F Gerardo 2022-08-04 10:02:36 2022-08-04 10:02:36 Outpatient SFA SFA [id number] Manny Carrillo 2022-08-04 00:00:00 2022-08-04 00:00:00 Outpatient Visit [id number] 2022-07-07 10:38:04 2022-07-07 10:38:04 Outpatient SFA SFA [id number] Manny Carrillo 2022-07-07 00:00:00 2022-07-07 00:00:00 Outpatient Visit [id number] 9418-09-02 08:00:00 2022-06-04 08:00:00 Outpatient Arin GuamanI [id number] [facility] 2022-06-03 11:16:00 2022-06-03 11:16:00 Outpatient Arin Guaman [id number] [facility] 2022-05-21 16:00:00 2022-05-21 17:00:00 ANTHONY Do 2.16.840. [id number] 2.16.840.1. [id number] [facility] 2022-05-21 00:00:00 2022-05-21 00:00:00 Outpatient OWENS_T DMG DMG [id number] [facility] 2022-05-21 00:00:00 2022-05-21 00:00:00 Outpatient OWENS_T DMG DMG [id number] [facility] 2022-04-16 06:14:00 2022-04-16 06:14:00 Outpatient OWENS_T DMG DMG [id number] [facility] 2021-10-07 05:50:00 2021-10-07 05:50:00 Outpatient OWENS_T DMG DMG [id number] [facility] 2021-09-03 08:02:00 2021-09-03 08:02:00 Outpatient DMG DMG [id number] [facility] 2021-04-16 12:00:00 2021-04-16 12:00:00 Outpatient DMG DMG [id number] [facility] 2021-01-06 11:15:00 2021-01-06 11:15:00 Outpatient QUINTON PENG [facility] [id number] [facility] 2020-12-02 15:30:00 2020-12-02 15:30:00 Outpatient QUINTON PENG [facility] [id number] [facility] 2020-10-28 13:00:00 2020-10-28 13:00:00 Outpatient QUINTON PENG [facility] [id number] [facility] 2020-10-23 13:00:00 2020-10-23 13:00:00 Outpatient RAFAEL OBRIEN [facility] [id number] [facility] 2020-09-24 10:59:00 2020-09-24 13:13:00 Emergency Ro Hamlin [facility] [id number] [id number] 2020-09-24 00:00:00 2020-09-24 00:00:00 Orders Only Doctor Unassigned, [place] [facility] 1.2.840.114 [id number] [id number] 2020-02-28 14:15:00 2020-02-28 14:15:00 Outpatient R ROLA MCNEILL [facility] [id number] [facility] 2020-02-28 13:42:58 2020-02-28 14:02:55 Office Visit Rola Mcneill [facility] 1.2.840.114 [id number] [id number] [id number] Results Test Description Test Time Test Comments Results Result Co mments Source COMPREHENSIVE METABOLIC [id number] 04:41:22* Test Item Value Reference Range Interpretation Comme nts GLUCOSE (test code = 2217) 107 MG/DL 70-99 H BUN (test code = 2208) 31 MG/DL 8-23 H CREATININE (test code = 2214) 1.18 MG/DL 0.60-1.30 eGFR (2020 CKD-EPI) (test code = 04053) 52 ML/MIN/1.73 >60 L The NKF-ASN Taskforce recommends use of Cystatin C to confirm eGFR inadults at risk for CKD. [facility] offers eGFR with Cystatin C-Creatinineusing the 2020 CKD-EPI eGFR_creat-cystat equation (order code 3057) toincrease the accuracy of estimated GFR. For more information, contactyour account manager or see announcement [email or web address] CALC BUN/CREAT (test code = 2235) 26 RATIO 6-28 SODIUM (test code = 2230) 141 MEQ/L 133-146 POTASSIUM (test code = 2227) 4.5 MEQ/L 3.5-5.4 CHLORIDE (test code = 2214) 104 MEQ/L 95-107 CARBON DIOXIDE (test code = 2205) 23 MEQ/L 19-31 CALCIUM (test code = 2208) 9.8 MG/DL 8.5-10.5 PROTEIN, TOTAL (test code = 2228) 7.4 G/DL 6.1-8.3 ALBUMIN (test code = 2200) 4.3 G/DL 3.5-5.2 CALC GLOBULIN (test code = 2239) 3.1 G/DL 1.9-3.7 CALC A/G RATIO (test code = 2233) 1.4 RATIO 1.0-2.6 BILIRUBIN, TOTAL (test code = 2206) 0.2 MG/DL See_Comment [Automated me ssage] The system which generated this result transmitted reference range: <=1.2. The reference range was not used to interpret this result as normal/abnormal. ALKALINE PHOSPHATASE (test code = 2203) 74 U/L 40-140 AST (test code = 2217) 12 U/L 9-40 ALT (test code = 2218) 8 U/L 5-40 LIPID [id number] 04:41:22* Test Item Value Reference Range Interpretation Comme nts CHOLESTEROL (test code = 2209) 217 MG/DL <200 H TRIGLYCERIDES (test code = 2231) 89 MG/DL <150 HDL CHOLESTEROL (test code = 2219) 48 MG/DL >39 CALC LDL CHOL (test code = 2236) 150 MG/DL <100 H NOTE: CALCULATED LDL IS BASED ON SAEID-KUHN METHOD WHICHINCLUDES ADJUSTABLE TRIGLYCERIDE:VLDL CHOLESTEROL RATIO.THIS FACTOR VARIES BY MEASURED TRIGLYCERIDE AND NON-HDLCHOLESTEROL CONCENTRATIONS WITH INCREASED CALCULATED LDL SEENIN HIGHER TRIGLYCERIDE OR LOWER NON-HDL SPECIMENS. FOR MOREINFORMATION, SEE CLIENT ANNOUNCEMENT AT [email or web address] RISK RATIO LDL/HDL (test code = 2237) 3.13 RATIO <3.22 HEMOGLOBIN [id number] 03:12:36* Test Item Value Reference Range Interpretation Comme nts HEMOGLOBIN A1c (test code = 59560) 6.6 % 4.2-5.6 H [employer] GUIDELINES FOR HGB A1C: PREDIABETES/INCREASED RISK . . . . . . . 5.7-6.4% DIAGNOSIS OF DIABETES . . . . . . . . . >=6.5% WITH CONFIRMATION OR APPROPRIATE SYMPTOMS NOTE: ASSAY MAY BE AFFECTED BY HEMOGLOBINOPATHIES (SICKLE CELL ANEMIA, S-C DISEASE, OTHERS) OR ARTIFICIALLY LOWERED BY DECREASED RED CELL SURVIVAL (HEMOLYTIC ANEMIAS, BLOOD LOSS, ETC.). CONSIDER ALTERNATE TESTING OR LABORATORY CONSULTATION. HEMOGLOBIN [id number] 05:10:16* Test Item Value Reference Range Interpretation Comme nts HEMOGLOBIN A1c (test code = 42281) 6.7 % 4.2-5.6 H [employer] GUIDELINES FOR HGB A1C: PREDIABETES/INCREASED RISK . . . . . . . 5.7-6.4% DIAGNOSIS OF DIABETES . . . . . . . . . >=6.5% WITH CONFIRMATION OR APPROPRIATE SYMPTOMS NOTE: ASSAY MAY BE AFFECTED BY HEMOGLOBINOPATHIES (SICKLE CELL ANEMIA, S-C DISEASE, OTHERS) OR ARTIFICIALLY LOWERED BY DECREASED RED CELL SURVIVAL (HEMOLYTIC ANEMIAS, BLOOD LOSS, ETC.). CONSIDER ALTERNATE TESTING OR LABORATORY CONSULTATION. LIPID [id number] 03:29:16* Test Item Value Reference Range Interpretation Comme nts CHOLESTEROL (test code = 2210) 229 MG/DL <200 H TRIGLYCERIDES (test code = 2232) 139 MG/DL <150 HDL CHOLESTEROL (test code = 2220) 51 MG/DL >39 CALC LDL CHOL (test code = 2237) 152 MG/DL <100 H NOTE: CALCULATED LDL IS BASED ON SAEID-KUHN METHOD WHICHINCLUDES ADJUSTABLE TRIGLYCERIDE:VLDL CHOLESTEROL RATIO.THIS FACTOR VARIES BY MEASURED TRIGLYCERIDE AND NON-HDLCHOLESTEROL CONCENTRATIONS WITH INCREASED CALCULATED LDL SEENIN HIGHER TRIGLYCERIDE OR LOWER NON-HDL SPECIMENS. FOR MOREINFORMATION, SEE CLIENT ANNOUNCEMENT AT [email or web address] /[email or web address] RISK RATIO LDL/HDL (test code = 2238) 2.98 RATIO <3.22 UNLESS OTHERW ISE INDICATED, ALL TESTING PERFORMED ATCLINICAL PATHOLOGY [employer] [address] [place] [address] DRONE OPERATOR: SATNAM AVENDANO M.D. CLIA NUMBER [id number] [facility] [place]. [id number] HEMOGLOBIN [id number] 00:00:00* Test Item Value Reference Range Interpretation Comme nts HEMOGLOBIN A1c (test code = 96775) 6.7 % HEMOGLOBIN [id number] 00:00:00* Test Item Value Reference Range Interpretation Comme nts HEMOGLOBIN A1c (test code = 42175) 6.7 % HEMOGLOBIN [id number] 00:00:00* Test Item Value Reference Range Interpretation Comme nts HEMOGLOBIN A1c (test code = 07035) 6.7 % LIPID [id number] 00:00:00* Test Item Value Reference Range Interpretation Comme nts CHOLESTEROL (test code = 2210) 229 MG/DL TRIGLYCERIDES (test code = 2232) 139 MG/DL HDL CHOLESTEROL (test code = 2220) 51 MG/DL CALC LDL CHOL (test code = 2237) 152 MG/DL RISK RATIO LDL/HDL (test cod e = 2238) 2.98 RATIO LIPID [id number] 00:00:00* Test Item Value Reference Range Interpretation Comme nts CHOLESTEROL (test code = 2210) 229 MG/DL TRIGLYCERIDES (test code = 2232) 139 MG/DL HDL CHOLESTEROL (test code = 2220) 51 MG/DL CALC LDL CHOL (test code = 2237) 152 MG/DL RISK RATIO LDL/HDL (test cod e = 2238) 2.98 RATIO HEMOGLOBIN [id number] 00:00:00* Test Item Value Reference Range Interpretation Comme nts HEMOGLOBIN A1c (test code = 68270) 6.7 % HEMOGLOBIN [id number] 00:00:00* Test Item Value Reference Range Interpretation Comme nts HEMOGLOBIN A1c (test code = 69223) 6.7 % HEMOGLOBIN [id number] 00:00:00* Test Item Value Reference Range Interpretation Comme nts HEMOGLOBIN A1c (test code = 82862) 6.7 % LIPID [id number] 00:00:00* Test Item Value Reference Range Interpretation Comme nts CHOLESTEROL (test code = 2210) 229 MG/DL TRIGLYCERIDES (test code = 2232) 139 MG/DL HDL CHOLESTEROL (test code = 2220) 51 MG/DL CALC LDL CHOL (test code = 2237) 152 MG/DL RISK RATIO LDL/HDL (test cod e = 2238) 2.98 RATIO LIPID [id number] 00:00:00* Test Item Value Reference Range Interpretation Comme nts CHOLESTEROL (test code = 2210) 229 MG/DL TRIGLYCERIDES (test code = 2232) 139 MG/DL HDL CHOLESTEROL (test code = 2220) 51 MG/DL CALC LDL CHOL (test code = 2237) 152 MG/DL RISK RATIO LDL/HDL (test cod e = 2238) 2.98 RATIO - US PELVIC [id number] 14:49:00 [facility] 1960 Sex: F Name: WEI BROWN [facility] : 1960 Age/S: 61 / F [id number] Unit #: [id number] Loc: [place] [address] Phys: Arin Carrasquillo MD Acct: [id number] Dis Date: Status: REG CLI PHONE#: [phone] Exam Date: 06/03/2022 1300 FAX #: Reason: Hx of Ovarian Cyst EXAMS: CPT: [id number] PELVIC COMPLETE 41801 HISTORY: Pain. History of ovarian cyst Location Code: B2 TECHNIQUE: Multiple transverse and longitudinal sonographic images were obtained. FINDINGS: The uterus is surgicallyabsent. The ovaries are not well visualized bilaterally. No suspicious adnexal masses are seen. There is no free fluid in the cul-de-sac. IMPRESSION: 1. Nonvisualization of the ovaries. No suspicious adnexal masses. 2. Surgically absent uterus at 1449 Reported and signed by: Jared Burris M.D. CC: Arin Carrasquillo MD; Kathleen Jovel DO Technologist: Lavonne Gill [facility] Date/Time: 06/03/2022 (2469) [id number] PAGE 1 Signed Report Name: WEI BROWN : 1960 Age/S: 61 / F [id number] Unit #: [id number] Loc: [place] [address] Phys: Arin Carrasquillo MD Acct: [id number] Dis Date: Status: REG CLI PHONE #: [phone] Exam Date: 06/03/2022 1300 FAX #: Reason: Hx of Ovarian Cyst EXAMS: CPT: [id number] PELVICCOMPLETE 98213 (Continued) Orig Print D/T: S: 06/03/2022 (1252) Probe: PAGE 2 Signed Report HEMOGLOBIN [id number] 00:00:00* Test Item Value Reference Range Interpretation Comme nts HEMOGLOBIN A1c (test code = 68278) 6.5 % HEMOGLOBIN [id number] 00:00:00* Test Item Value Reference Range Interpretation Comme nts HEMOGLOBIN A1c (test code = 01428) 6.5 % HEMOGLOBIN [id number] 00:00:00* Test Item Value Reference Range Interpretation Comme nts HEMOGLOBIN A1c (test code = 25114) 6.5 % HEMOGLOBIN [id number] 00:00:00* Test Item Value Reference Range Interpretation Comme nts HEMOGLOBIN A1c (test code = 40838) 6.5 % HEMOGLOBIN [id number] 00:00:00* Test Item Value Reference Range Interpretation Comme nts HEMOGLOBIN A1c (test code = 44533) 6.5 % HEMOGLOBIN [id number] 00:00:00* Test Item Value Reference Range Interpretation Comme nts HEMOGLOBIN A1c (test code = 53277) 6.5 % HEMOGLOBIN [id number] 00:00:00* Test Item Value Reference Range Interpretation Comme nts HEMOGLOBIN A1c (test code = 59951) 6.4 % HEMOGLOBIN [id number] 00:00:00* Test Item Value Reference Range Interpretation Comme nts HEMOGLOBIN A1c (test code = 43627) 6.4 % HEMOGLOBIN [id number] 00:00:00* Test Item Value Reference Range Interpretation Comme nts HEMOGLOBIN A1c (test code = 58023) 6.4 % LIPID [id number] 00:00:00* Test Item Value Reference Range Interpretation Comme nts CHOLESTEROL (test code = 2210) 193 MG/DL TRIGLYCERIDES (test code = 2232) 105 MG/DL HDL CHOLESTEROL (test code = 2220) 48 MG/DL CALC LDL CHOL (test code = 2237) 124 MG/DL RISK RATIO LDL/HDL (test cod e = 2238) 2.58 RATIO LIPID [id number] 00:00:00* Test Item Value Reference Range Interpretation Comme nts CHOLESTEROL (test code = 2210) 193 MG/DL TRIGLYCERIDES (test code = 2232) 105 MG/DL HDL CHOLESTEROL (test code = 2220) 48 MG/DL CALC LDL CHOL (test code = 2237) 124 MG/DL RISK RATIO LDL/HDL (test cod e = 2238) 2.58 RATIO HEMOGLOBIN [id number] 00:00:00* Test Item Value Reference Range Interpretation Comme nts HEMOGLOBIN A1c (test code = 33528) 6.4 % HEMOGLOBIN [id number] 00:00:00* Test Item Value Reference Range Interpretation Comme nts HEMOGLOBIN A1c (test code = 55746) 6.4 % HEMOGLOBIN [id number] 00:00:00* Test Item Value Reference Range Interpretation Comme nts HEMOGLOBIN A1c (test code = 30909) 6.4 % LIPID [id number] 00:00:00* Test Item Value Reference Range Interpretation Comme nts CHOLESTEROL (test code = 2210) 193 MG/DL TRIGLYCERIDES (test code = 2232) 105 MG/DL HDL CHOLESTEROL (test code = 2220) 48 MG/DL CALC LDL CHOL (test code = 2237) 124 MG/DL RISK RATIO LDL/HDL (test cod e = 2238) 2.58 RATIO LIPID [id number] 00:00:00* Test Item Value Reference Range Interpretation Comme nts CHOLESTEROL (test code = 2210) 193 MG/DL TRIGLYCERIDES (test code = 2232) 105 MG/DL HDL CHOLESTEROL (test code = 2220) 48 MG/DL CALC LDL CHOL (test code = 2237) 124 MG/DL RISK RATIO LDL/HDL (test cod e = 2238) 2.58 RATIO COMPREHENSIVE METABOLIC [id number] 00:00:00* Test Item Value Reference Range Interpretation Comme nts GLUCOSE (test code = 2217) 101 MG/DL BUN (test code = 2208) 21 MG/DL CREATININE (test code = 2214) 0.89 MG/DL eGFR AMER. (test cod e = 19877) 82 ML/MIN/1.73 eGFR NON- AMER. (test code = 06549) 71 ML/MIN/1.73 CALC BUN/CREAT (test code = 2235) 24 RATIO SODIUM (test code = 2231) 140 MEQ/L POTASSIUM (test code = 2228) 4.2 MEQ/L CHLORIDE (test code = 2215) 101 MEQ/L CARBON DIOXIDE (test code = 2206) 26 MEQ/L CALCIUM (test code = 2209) 9.5 MG/DL PROTEIN, TOTAL (test code = 2229) 7.2 G/DL ALBUMIN (test code = 2201) 4.4 G/DL CALC GLOBULIN (test code = 2240) 2.8 G/DL CALC A/G RATIO (test code = 2234) 1.6 RATIO BILIRUBIN, TOTAL (test code = 2207) <0.2 MG/DL ALKALINE PHOSPHATASE (test code = 2204) 59 U/L AST (test code = 2218) 11 U/L ALT (test code = 2219) 10 U/L COMPREHENSIVE METABOLIC [id number] 00:00:00* Test Item Value Reference Range Interpretation Comme nts GLUCOSE (test code = 2217) 101 MG/DL BUN (test code = 2208) 21 MG/DL CREATININE (test code = 2214) 0.89 MG/DL eGFR AMER. (test cod e = 66635) 82 ML/MIN/1.73 eGFR NON- AMER. (test code = 93285) 71 ML/MIN/1.73 CALC BUN/CREAT (test code = 2235) 24 RATIO SODIUM (test code = 2231) 140 MEQ/L POTASSIUM (test code = 2228) 4.2 MEQ/L CHLORIDE (test code = 2215) 101 MEQ/L CARBON DIOXIDE (test code = 2206) 26 MEQ/L CALCIUM (test code = 2209) 9.5 MG/DL PROTEIN, TOTAL (test code = 2229) 7.2 G/DL ALBUMIN (test code = 2201) 4.4 G/DL CALC GLOBULIN (test code = 2240) 2.8 G/DL CALC A/G RATIO (test code = 2234) 1.6 RATIO BILIRUBIN, TOTAL (test code = 2207) <0.2 MG/DL ALKALINE PHOSPHATASE (test code = 2204) 59 U/L AST (test code = 2218) 11 U/L ALT (test code = 2219) 10 U/L LIPID [id number] 00:00:00* Test Item Value Reference Range Interpretation Comme nts CHOLESTEROL (test code = 2210) 189 MG/DL TRIGLYCERIDES (test code = 2232) 78 MG/DL HDL CHOLESTEROL (test code = 2220) 48 MG/DL CALC LDL CHOL (test code = 2237) 125 MG/DL RISK RATIO LDL/HDL (test cod e = 2238) 2.61 RATIO LIPID [id number] 00:00:00* Test Item Value Reference Range Interpretation Comme nts CHOLESTEROL (test code = 2210) 189 MG/DL TRIGLYCERIDES (test code = 2232) 78 MG/DL HDL CHOLESTEROL (test code = 2220) 48 MG/DL CALC LDL CHOL (test code = 2237) 125 MG/DL RISK RATIO LDL/HDL (test cod e = 2238) 2.61 RATIO HEMOGLOBIN [id number] 00:00:00* Test Item Value Reference Range Interpretation Comme nts HEMOGLOBIN A1c (test code = 40814) 6.5 % HEMOGLOBIN [id number] 00:00:00* Test Item Value Reference Range Interpretation Comme nts HEMOGLOBIN A1c (test code = 37731) 6.5 % HEMOGLOBIN [id number] 00:00:00* Test Item Value Reference Range Interpretation Comme nts HEMOGLOBIN A1c (test code = 45159) 6.5 % [id number] 00:00:00* Test Item Value Reference Range Interpretation Comme nts TSH, THIRD GENERATION (test code = 2821) 3.650 UIU/ML [id number] 00:00:00* Test Item Value Reference Range Interpretation Comme nts TSH, THIRD GENERATION (test code = 2821) 3.650 UIU/ML [id number] 00:00:00* Test Item Value Reference Range Interpretation Comme nts TSH, THIRD GENERATION (test code = 2821) 3.650 UIU/ML COMPREHENSIVE METABOLIC [id number] 00:00:00* Test Item Value Reference Range Interpretation Comme nts GLUCOSE (test code = 2217) 101 MG/DL BUN (test code = 2208) 21 MG/DL CREATININE (test code = 2214) 0.89 MG/DL eGFR AMER. (test cod e = 83262) 82 ML/MIN/1.73 eGFR NON- AMER. (test code = 09149) 71 ML/MIN/1.73 CALC BUN/CREAT (test code = 2235) 24 RATIO SODIUM (test code = 2231) 140 MEQ/L POTASSIUM (test code = 2228) 4.2 MEQ/L CHLORIDE (test code = 2215) 101 MEQ/L CARBON DIOXIDE (test code = 2206) 26 MEQ/L CALCIUM (test code = 2209) 9.5 MG/DL PROTEIN, TOTAL (test code = 2229) 7.2 G/DL ALBUMIN (test code = 2201) 4.4 G/DL CALC GLOBULIN (test code = 2240) 2.8 G/DL CALC A/G RATIO (test code = 2234) 1.6 RATIO BILIRUBIN, TOTAL (test code = 2207) <0.2 MG/DL ALKALINE PHOSPHATASE (test code = 2204) 59 U/L AST (test code = 2218) 11 U/L ALT (test code = 2219) 10 U/L COMPREHENSIVE METABOLIC [id number] 00:00:00* Test Item Value Reference Range Interpretation Comme nts GLUCOSE (test code = 2217) 101 MG/DL BUN (test code = 2208) 21 MG/DL CREATININE (test code = 2214) 0.89 MG/DL eGFR AMER. (test cod e = 00907) 82 ML/MIN/1.73 eGFR NON- AMER. (test code = 25113) 71 ML/MIN/1.73 CALC BUN/CREAT (test code = 2235) 24 RATIO SODIUM (test code = 2231) 140 MEQ/L POTASSIUM (test code = 2228) 4.2 MEQ/L CHLORIDE (test code = 2215) 101 MEQ/L CARBON DIOXIDE (test code = 2206) 26 MEQ/L CALCIUM (test code = 2209) 9.5 MG/DL PROTEIN, TOTAL (test code = 2229) 7.2 G/DL ALBUMIN (test code = 2201) 4.4 G/DL CALC GLOBULIN (test code = 2240) 2.8 G/DL CALC A/G RATIO (test code = 2234) 1.6 RATIO BILIRUBIN, TOTAL (test code = 2207) <0.2 MG/DL ALKALINE PHOSPHATASE (test code = 2204) 59 U/L AST (test code = 2218) 11 U/L ALT (test code = 2219) 10 U/L LIPID [id number] 00:00:00* Test Item Value Reference Range Interpretation Comme nts CHOLESTEROL (test code = 2210) 189 MG/DL TRIGLYCERIDES (test code = 2232) 78 MG/DL HDL CHOLESTEROL (test code = 2220) 48 MG/DL CALC LDL CHOL (test code = 2237) 125 MG/DL RISK RATIO LDL/HDL (test cod e = 2238) 2.61 RATIO LIPID [id number] 00:00:00* Test Item Value Reference Range Interpretation Comme nts CHOLESTEROL (test code = 2210) 189 MG/DL TRIGLYCERIDES (test code = 2232) 78 MG/DL HDL CHOLESTEROL (test code = 2220) 48 MG/DL CALC LDL CHOL (test code = 2237) 125 MG/DL RISK RATIO LDL/HDL (test cod e = 2238) 2.61 RATIO HEMOGLOBIN [id number] 00:00:00* Test Item Value Reference Range Interpretation Comme nts HEMOGLOBIN A1c (test code = 91727) 6.5 % HEMOGLOBIN [id number] 00:00:00* Test Item Value Reference Range Interpretation Comme nts HEMOGLOBIN A1c (test code = 86462) 6.5 % HEMOGLOBIN [id number] 00:00:00* Test Item Value Reference Range Interpretation Comme nts HEMOGLOBIN A1c (test code = 34585) 6.5 % [id number] 00:00:00* Test Item Value Reference Range Interpretation Comme nts TSH, THIRD GENERATION (test code = 2821) 3.650 UIU/ML [id number] 00:00:00* Test Item Value Reference Range Interpretation Comme nts TSH, THIRD GENERATION (test code = 2821) 3.650 UIU/ML [id number] 00:00:00* Test Item Value Reference Range Interpretation Comme nts TSH, THIRD GENERATION (test code = 2821) 3.650 UIU/ML
[2024-01-27] MEDS ORDERED: HYDROCODONE/APAP 5/325 MG TAB ONE (17:31)
--- NOTE | 2024-01-27 17:57 | RAD REPORT ---
EXAM DESCRIPTION: USExtremity Venous Uni Ltd01/27/2024 5:44 pm CLINICAL HISTORY: left leg pain COMPARISON: 2022 FINDINGS: Left common femoral, superficial femoral, greater saphenous, popliteal and posterior tibi al veins are compressible and demonstrate augmentation. Doppler demonstrates good flow. Grayscale, color and spectral analysis performed on all vessels IMPRESSION: No evidence of deep venous thrombosis involving the left lower extremity.
--- NOTE | 2024-01-27 18:22 | ER ---
Nurse's Notes [facility] Name: Deepika Brown Age: 63 yrs Sex: Female : 1960 Arrival Date: 01/27/2024 Time: 16:38 Bed 14 Private MD: Diagnosis: Pain in left leg Presentation: 01/26 16:52 Chief complaint: Patient states: left leg pain that began 2 days ago. Pt denies injury. aa5 Coronavirus screen: At this time, the client does not indicate any symptoms associated with coronavirus-19. Ebola Screen: Patient denies travel to an Ebola-affected area in the 21 days before illness onset. Initial Sepsis Screen: Does the patient meet any 2 criteria? No. Patient's initial sepsis screen is negative. Does the patient have a suspected source of infection? No. Patient's initial sepsis screen is negative. Risk Assessment: Do you want to hurt yourself or someone else? Patient reports no desire to harm self or others. Onset of symptoms was January 2024. 16:52 Acuity: ESME 3 aa5 16:52 Method Of Arrival: Ambulatory aa5 Historical: - Allergies: 16:53 No Known Allergies; aa5 - PMHx: 16:53 Arthritis; Diabetes - NIDDM; Hypertension; aa5 - Immunization history:: Adult Immunizations unknown. - Infectious Disease History:: Denies. - Social history:: Smoking status: Patient denies any tobacco usage or history of. - Family history:: not pertinent. Screenin:39 [facility] ED Fall Risk Assessment (Adult) History of falling in the last 3 months, kc6 including since admission No falls in past 3 months (0 pts) Confusion or Disorientation No (0 pts) Intoxicated or Sedated No (0 pts) Impaired Gait Yes (1 pt) Mobility Assist Device Used Yes (1 pt) Altered Elimination No (0 pt) Score/Fall Risk Level 0 - 2 = Low Risk. Abuse screen: Denies threats or abuse. Denies injuries from another. Nutritional screening: No deficits noted. Tuberculosis screening: No symptoms or risk factors identified. Assessment: 17:39 General: Appears in no apparent distress. comfortable, obese, well groomed, well kc6 developed, Behavior is calm, cooperative, appropriate for age. Pain: Complains of pain in left leg. Neuro: Level of Consciousness is awake, alert, obeys commands, Oriented to person, place, time, situation, Appropriate for age. Cardiovascular: Capillary refill < 3 seconds. Respiratory: Airway is patent Trachea midline Respiratory effort is even, unlabored, Respiratory pattern is regular, symmetrical. GI: No signs and/or symptoms were reported involving the gastrointestinal system. : No signs and/or symptoms were reported regarding the genitourinary system. EENT: No signs and/or symptoms were reported regarding the EENT system. Derm: No signs and/or symptoms reported regarding the dermatologic system. Skin is intact, is healthy with good turgor, Skin is pink, warm \T\ dry. Musculoskeletal: No signs and/or symptoms reported regarding the musculoskeletal system. Circulation, motion, and sensation intact. Capillary refill < 3 seconds, Range of motion: intact in all extremities. 18:22 Reassessment: Patient appears in no apparent distress at this time. No changes from kc6 previously documented assessment. Patient and/or family updated on plan of care and expected duration. Pain level reassessed. Patient is alert, oriented x 3, equal unlabored respirations, skin warm/dry/pink. Vital Signs: 16:52 BP 149 / 74; Pulse 79; Resp 19 S; Temp 97.6(TE); Pulse Ox 100% on R/A; Weight 110.22 kg aa5 (R); Height 5 ft. 2 in. (R); 16:52 Body Mass Index 44.44 (110.22 kg, 157.48 cm) aa5 ED Course: 16:43 Patient arrived in ED. im 16:49 Damon Yusuf MD is Attending Physician. rt 16:52 Arm band placed on. aa5 16:53 Triage completed. aa5 16:54 Pham Pérez, FALGUNI is Primary Nurse. kc6 17:39 Patient has correct armband on for positive identification. Bed in low position. Call kc6 light in reach. Side rails up X 1. Client placed on continuous cardiac and pulse oximetry monitoring. NIBP monitoring applied. Door closed. Noise minimized. Visitors limited. Lights dimmed. Warm blanket given. 17:46 Extremity Venous Uni Ltd US In Process Unspecified. EDMS 18:35 No provider procedures requiring assistance completed. intact, bleeding controlled, No kc6 redness/swelling at site. Pressure dressing applied. Administered Medications: 17:38 Drug: HYDROcodone-acetaminophen PO 5 mg-325 mg 1 tabs PO once Route: PO; kc6 18:22 Follow up: Response: No adverse reaction kc6 Medication: 18:43 VIS not applicable for this client. kc6 Outcome: 18:21 Discharge ordered by . rt 18:42 Discharged to home ambulatory, kc6 18:42 Condition: good 18:42 Discharge instructions given to patient, Instructed on discharge instructions, follow up and referral plans. medication usage, Demonstrated understanding of instructions, follow-up care, medications, Prescriptions given X 1, 18:43 Patient left the ED. kc6 Signatures: Dispatcher [employer] EDMS Trina Gates RN RN [email or web address] Pham Pérez RN RN kc6 Damon Yusuf MD MD rt Jocelyn Squires
--- NOTE | 2024-01-27 18:22 | EDPHYS ---
Physician Documentation [facility] Name: Deepika Brown Age: 63 yrs Sex: Female : 1960 Arrival Date: 01/27/2024 Time: 16:38 Bed 14 Private MD: ED Physician Damon Yusuf HPI: 01/26 17:16 This 63 yrs old Black Female presents to ER via Ambulatory with complaints of Leg Pain rt - left. 17:16 Patient with previous history of DVT, reports compliance with anticoagulants, presents rt to the ED with a left calf pain starting today. Denies injury. Denies other acute complaints at this time, symptoms are moderate in severity, no other aggravating alleviating factors.. Historical: - Allergies: 16:53 No Known Allergies; aa5 - PMHx: 16:53 Arthritis; Diabetes - NIDDM; Hypertension; aa5 - Immunization history:: Adult Immunizations unknown. - Infectious Disease History:: Denies. - Social history:: Smoking status: Patient denies any tobacco usage or history of. - Family history:: not pertinent. ROS: 17:16 Constitutional: Negative for fever, chills, and weight loss, Cardiovascular: Negative rt for chest pain, palpitations, and edema, Respiratory: Negative for shortness of breath, cough, wheezing, and pleuritic chest pain, Abdomen/GI: Negative for abdominal pain, nausea, vomiting, diarrhea, and constipation, Skin: Negative for injury, rash, and discoloration, Neuro: Negative for headache, weakness, numbness, tingling, and seizure, 17:16 MS/extremity: Positive for pain, Negative for injury or acute deformity, Exam: 17:16 Constitutional: This is a well developed, well nourished patient who is awake, alert, rt and in no acute distress. Head/Face: Normocephalic, atraumatic. Chest/axilla: Normal chest wall appearance and motion. Nontender with no deformity. No lesions are appreciated. Cardiovascular: Regular rate and rhythm with a normal S1 and S2. No gallops, murmurs, or rubs. Normal PMI, no JVD. No pulse deficits. Respiratory: Lungs have equal breath sounds bilaterally, clear to auscultation and percussion. No rales, rhonchi or wheezes noted. No increased work of breathing, no retractions or nasal flaring. Abdomen/GI: Soft, non-tender, with normal bowel sounds. No distension or tympany. No guarding or rebound. No evidence of tenderness throughout. Skin: Warm, dry with normal turgor. Normal color with no rashes, no lesions, and no evidence of cellulitis. Neuro: Awake and alert, GCS 15, oriented to person, place, time, and situation. Cranial nerves II-XII grossly intact. Motor strength 5/5 in all extremities. Sensory grossly intact. Cerebellar exam normal. Normal gait. Psych: Awake, alert, with orientation to person, place and time. Behavior, mood, and affect are within normal limits. 17:16 Musculoskeletal/extremity: Mild tenderness to the left proximal calf, no appreciable swelling, pulses, motor, sensation intact. Vital Signs: 16:52 BP 149 / 74; Pulse 79; Resp 19 S; Temp 97.6(TE); Pulse Ox 100% on R/A; Weight 110.22 kg aa5 (R); Height 5 ft. 2 in. (R); 16:52 Body Mass Index 44.44 (110.22 kg, 157.48 cm) aa5 MDM: 17:00 Patient medically screened. rt 18:24 Differential diagnosis: DVT, Terry's cyst, musculoskeletal pain. Data reviewed: vital rt signs, nurses notes, radiologic studies. Test considered but Not performed: X-ray: No signs of trauma, no bony tenderness, no deformities, x-ray not indicated. Care significantly affected by the following chronic conditions: Diabetes, Hypertension. Counseling: I had a detailed discussion with the patient and/or guardian regarding the historical points, exam findings, and any diagnostic results supporting the discharge/admit diagnosis, radiology results, the need for outpatient follow up. Response to treatment: the patient's symptoms have markedly improved after treatment. 01/26 17:05 Order name: Extremity Venous Uni Ltd ; Complete Time: 17:58 rt Administered Medications: 17:38 Drug: HYDROcodone-acetaminophen PO 5 mg-325 mg 1 tabs PO once Route: PO; kc6 18:22 Follow up: Response: No adverse reaction kc6 Disposition Summary: 01/27/24 18:21 Discharge Ordered Notes: Location: Home rt Problem: new rt Symptoms: have improved rt Condition: Stable rt Diagnosis - Pain in left leg rt Followup: rt - With: Private Physician - When: 2 - 3 days - Reason: Discharge Instructions: - Discharge Summary Sheet rt - Musculoskeletal Pain rt Forms: - Medication Reconciliation Form rt - Antibiotic Education rt - Prescription Opioid Use rt - Patient Portal Instructions rt - Leadership Thank You Letter rt Prescriptions: - Tramadol 50 mg Oral Tablet - take 1 tablet ORAL route every 8 hours as needed; 12 tablet; Refills: 0, rt Product Selection Permitted Signatures: Dispatcher [employer] Trina Gar RN RN aa5 Pham Pérez RN RN kc6 Damon Yusuf MD MD rt
[2024-01-27 19:12] VITALS: BP 149/74; TEMP 97.6; O2SAT 100
== END 2024-01-27 18:43 | disposition home or self-care (01) ==
LOC: ER 16:38
DX: M79.605 Pain in left leg (principal); Z86.718 Personal history of other venous thrombosis and embolism; Z79.01 Long term (current) use of anticoagulants
CPT/HCPCS: 93971

== ENCOUNTER 2024-09-10 20:46 | Emergency (ER) | payer MEDICARE ==
--- OUTSIDE RECORDS SUMMARY | 2024-09-10 20:49 | XMS REPORT | Continuity of Care Document ---
Author Name Unknown Address [address] [facility] [address]. [address] [place] [address] [facility] Address [address] [facility]. [address] [place] [address] Care Team Providers Care Cryptologist Name Role Phone Aileen HOLLINS, [facility] Primary Care Physician [phone] Liban Almanza Attending Clinician Unavailable Louis Lloyd Attending Clinician Unavailable Arin Carrasquillo Attending Clinician Unavailable Janice Babin Attending Clinician [phone] Navya Lainez Attending Clinician Unavailable GC_GCBZW_Kamarjorie_S Attending Clinician Unavailmarilyn DEAN Attending Clinician Unavailable Amina Jordan Attending Clinician Den Do Attending Clinician QUINTON HOOPER Attending Clinician Jing RAFAEL Zimmerman Attending Clinician Unavail able Ro Christianson Attending Clinician [phone] Doctor Unassigned, [place] Attending Clinician U ORLA Matt Attending Clinician UnavailRola Humphrey MD Attending Clinician [phone] Kathleen Jovel Admitting Clinician Unavailable GC_GCBZW_Kadiyala_S Admitting Clinician Unavaila ble OWENS_T Admitting Clinician Unavailable Payers Payer Name Policy Type Policy Number Effective Date Expirati on Date Source [facility] [id number] [53] [facility] [id number] 2004 00:00:00 2050 00:00:00 [facility] (MEDICARE REPLACEMENT HMO) [facility] 2021 00:00:00 Problems Condition Name Condition Details Condition Category Status Onset Date Resolution Date Last Treatment Date Treating Clinician Comments Source Comprehens jomar eye examinatio n (procedure ) Routine eye exam Problem [facility] [id number] Mixed hyperlipid emia Problem [facility] Anemia Anemia, unspecifie d type Problem [facility] Type II diabetes mellitus well controlled Diabetes type 2, controlled Problem [facility] Migraine Migraines Problem Commo n [facility] Asthma Asthma Problem [facility] Hypertensi on HTN (hypertens ion) Problem [facility] [id number] Primary osteoarthr itis of left knee Problem [facility] Allergic rhinitis Allergic rhinitis, unspecifie d seasonalit y, unspecifie d trigger Problem [facility] [id number] Chronic gout without tophus, unspecifie d cause, unspecifie d site Problem [facility] High cholestero l High cholestero l Problem [facility] [id number] Type 2 diabetes mellitus with hyperglyce sharlene, without long-term current use of insulin Problem [facility] [id number] Type 2 diabetes mellitus with diabetic chronic kidney disease Problem [facility] [id number] Primary hypertensi on Problem [facility] 06504637 Calculus of gallbladde r without cholecysti tis without obstructio n Problem [facility] Pulmonary Embolism Pulmonary embolism without acute cor pulmonale, unspecifie d chronicity , unspecifie d pulmonary embolism type Problem [facility] [id number] 9104 Morbid (severe) obesity due to excess calories Problem [facility] 846932405 Body mass index [BMI] 45.0-49.9, adult Problem [facility] [id number] Body mass index [BMI] 35.0-35.9, adult Problem [facility] [id number] Chronic kidney disease, stage 3 unspecifie d Problem [facility] Allergies, Adverse Reactions, Alerts Allergy Name Allergy Type Status Severity Reaction(s) Onset Date Inactive Date Treating Clinician Comments Source NO KNOWN ALLERGIE S Drug Class Active [facility] Social History Social Habit Start Date Stop Date Quantity Comments Source History of Tobacco Use [facility] Sex Assigned At [facility] Smoking Status Start Date Stop Date Source Never Smoker [facility] Medications Ordered Medication Name Filled Medication Name Start Date Stop Date Current Medication? Ordering Clinician Indication Dosage Frequency Signature (SIG) Comments Components Source Kenalog (Triamcinol one) Kenalog (Triamcinol one) 2023-10 00:00: 00 No 40mg [facility] Losartan Potassium 25 MG Losartan Potassium 25 [...] 6 TO 8 HOURS NEEDED FOR PAIN 2022-0 9-13 00:00: 00 No naproxen 500 mg tablet 2- 00:00: 00 No 1mg gabapentin 100 mg capsule 2- 00:00: 00 No 2mg naproxen 500 mg tablet 2- 00:00: 00 No 1mg gabapentin 100 mg capsule 2 00:00: 00 No 2mg valsartan 40 mg tablet 8- 00:00: 00 No 1mg allopurinol 100 mg [...] 00 No 1mg meloxicam 7.5 mg tablet 2 00:00: 00 No 1mg valsartan 40 mg tablet 2- 00:00: 00 No 1mg allopurinol 100 mg tablet 11-15 00:00: 00 No 1mg meloxicam 7.5 mg tablet 11-15 00:00: 00 No 1mg furosemide 20 mg tablet 11-15 00:00: 00 No 1mg gabapentin 100 mg capsule 0 11-15 00:00: 00 No 1mg furosemide 20 mg tablet 0 11-15 00:00: 00 No 1mg gabapentin 100 mg capsule 11-15 00:00: 00 No 1mg valsartan 40 mg tablet 11-06 00:00: 00 No 1mg valsartan 40 mg tablet 11-06 00:00: 00 No 1mg tramadol 50 mg tablet 2018-1016 00:00: 00 No 1mg gabapentin 100 mg capsule 2018-10 00:00: 00 No 1mg allopurinol 100 mg tablet 2018-10 00:00: 00 No 1mg losartan 100 mg-hydrochl orothiazide 25 mg tablet 2018-10 00:00: 00 No 1mg meloxicam 7.5 mg tablet 2018-10 00:00: 00 No 1mg amlodipine 10 mg tablet 2018-10 00:00: 00 No 1mg furosemide 20 mg tablet 2018-1016 00:00: 00 No 1mg tramadol 50 mg tablet 2018-1016 00:00: 00 No 1mg gabapentin 100 mg capsule 2018-1016 00:00: 00 No 1mg allopurinol 100 mg tablet 2018-1016 00:00: 00 No 1mg losartan 100 mg-hydrochl orothiazide 25 mg tablet 2018-1016 00:00: 00 No 1mg meloxicam 7.5 mg tablet 2018-1016 00:00: 00 No 1mg amlodipine 10 mg tablet 2018-1016 00:00: 00 No 1mg furosemide 20 mg tablet 2018-1016 00:00: 00 No 1mg Allopurinol 100 MG Allopurinol 100 MG No [...] t} QD Bisoprolol -hydroCHLO ROthiazide 5-6.25 MG Vital Signs Vital Name Observation Time Observation Value Comments S bethaniece height 2024-08-24 09:45:00 62.00 [in_i] Com [facility] weight 2024-08-24 09:45:00 238.2 [lb_av] Co [facility] temperature 2024-08-24 09:45:00 97.8 [degF] Com [facility] bmi 2024-08-24 09:45:00 43.56 kg/m2 Comm on [facility] oximetry 2024-08-24 09:45:00 99 % Commo n [facility] respiratory rate 2024-08-24 09:45:00 16 /min [facility] blood pressure systolic 2024-08-24 09:45:00 136 mm[Hg] [facility] blood pressure diastolic 2024-08-24 09:45:00 68 mm[Hg] [facility] height 2024-05-02 09:50:00 62.00 [in_i] Com [facility] weight 2024-05-02 09:50:00 237.0 [lb_av] Co [facility] temperature 2024-05-02 09:50:00 97.8 [degF] Com [facility] bmi 2024-05-02 09:50:00 43.34 kg/m2 Comm on [facility] oximetry 2024-05-02 09:50:00 98 % Commo n [facility] respiratory rate 2024-05-02 09:50:00 17 /min [facility] blood pressure systolic 2024-05-02 09:50:00 124 mm[Hg] [facility] blood pressure diastolic 2024-05-02 09:50:00 76 mm[Hg] [facility] height 2024-05-02 09:50:00 62.00 [in_i] Com [facility] weight 2024-05-02 09:50:00 237.0 [lb_av] Co [facility] temperature 2024-05-02 09:50:00 97.8 [degF] Com [facility] bmi 2024-05-02 09:50:00 43.34 kg/m2 Comm on [facility] oximetry 2024-05-02 09:50:00 98 % Commo n [facility] respiratory rate 2024-05-02 09:50:00 17 /min Common [facility] blood pressure systolic 2024-05-02 09:50:00 124 mm[Hg] [facility] blood pressure diastolic 2024-05-02 09:50:00 76 mm[Hg] [facility] height 2023-12-22 09:50:00 62.00 [in_i] Com [facility] weight 2023-12-22 09:50:00 239.0 [lb_av] Co [facility] temperature 2023-12-22 09:50:00 97.5 [degF] Com [facility] bmi 2023-12-22 09:50:00 43.71 kg/m2 Comm on [facility] oximetry 2023-12-22 09:50:00 98 % Commo n [facility] respiratory rate 2023-12-22 09:50:00 18 /min Common [facility] blood pressure systolic 2023-12-22 09:50:00 120 mm[Hg] [facility] blood pressure diastolic 2023-12-22 09:50:00 76 mm[Hg] [facility] height 2023-12-22 09:50:00 62.00 [in_i] Com mon [facility] weight 2023-12-22 09:50:00 239.0 [lb_av] Co mmon [facility] temperature 2023-12-22 09:50:00 97.5 [degF] Com mon [facility] bmi 2023-12-22 09:50:00 43.71 kg/m2 Comm on [facility] oximetry 2023-12-22 09:50:00 98 % Commo n [facility] respiratory rate 2023-12-22 09:50:00 18 /min [facility] blood pressure systolic 2023-12-22 09:50:00 120 mm[Hg] [facility] blood pressure diastolic 2023-12-22 09:50:00 76 mm[Hg] [facility] BP Systolic 2022-08-04 10:20:00 115 mm[Hg] BP [...] Goal Plan of Care Note [code = 09498-1] Goal Plan of Care Note [code = 09211-1] Goal Plan of Care Note [code = 23555-6] Goal Plan of Care Note [code = 85770-2] Goal Plan of Care Note [code = 08173-6] Goal Plan of Care Note [code = 41667-4] Goal Plan of Care Note [code = 66526-3] Goal Plan of Care Note [code = 23231-4] Goal Plan of Care Note [code = 89367-6] Goal Plan of Care Note [code = 34373-4] Goal Plan of Care Note [code = 84054-0] Goal Plan of Care Note [code = 72848-2] Goal Plan of Care Note [code = 02117-6] Goal Plan of Care Note [code = 35933-5] Goal Plan of Care Note [code = 89142-7] Goal Plan of Care Note [code = 28021-8] Goal Plan of Care Note [code = 43563-3] Goal Plan of Care Note [code = 61026-0] Goal Plan of Care Note [code = 34896-3] Goal Plan of Care Note [code = 58348-0] Goal Plan of Care Note [code = 21072-1] Goal Plan of Care Note [code = 37685-4] Goal Plan of Care Note [code = 93646-1] Goal Plan of Care Note [code = 11882-7] Goal Plan of Care Note [code = 34655-6] Goal Plan of Care Note [code = 28770-6] Goal Plan of Care Note [code = 64956-1] Goal Plan of Care Note [code = 80386-8] Goal Plan of Care Note [code = 15315-4] Goal Plan of Care Note [code = 64362-8] Goal Plan of Care Note [code = 13415-9] Goal Plan of Care Note [code = 72350-5] Goal Plan of Care Note [code = 69988-9] Encounters Start Date/Time End Date/Time Encounter Type Admission Type Attending [facility] Care Department Encounter ID Source 2024-04-30 11:17:00 Outpatient AlmanzaAida santizoh [facility] ST[facility] [id number] [facility] 2023-12-22 09:52:00 Outpatient AlmanzaAida santizoh [facility] [id number] [facility] 2023-09-21 12:42:00 Outpatient Aida Almanzah [facility] [id number] [facility] 2023-07-18 11:20:00 Outpatient AlmanzaAida santizoh [facility] STLC [id number] [facility] 2023-03-21 08:18:02 [facility] [id number] [facility] 2023-02-22 15:05:02 Outpatient Aida Almanzah [facility] [id number] [facility] 2023-01-28 08:59:01 [facility] [id number] [facility] 2022-12-28 13:24:03 Outpatient Louis Lloyd [facility] [id number] [facility] 2021-08-01 12:56:46 Emergency [facility] [id number] [facility] 2024-09-03 00:00:00 2024-09-03 00:00:00 (TEL) STLMLC STLMLC [id number] [facility] 2024-08-24 00:00:00 2024-08-24 00:00:00 OFFICE VISIT ESTAB PT LEVEL 4 STLC STLC [id number] [facility] 2024-07-31 00:00:00 2024-07-31 00:00:00 (TEL) STLMLC STLMLC [id number] [facility] 2024-06-05 08:00:00 2024-06-05 08:00:00 Outpatient Arin Guaman [facility]A [id number] [facility] 2024-05-21 00:00:00 2024-05-21 00:00:00 (TEL) STLMLC STLMLC [id number] [facility] 2024-05-02 00:00:00 2024-05-02 00:00:00 OFFICE VISIT ESTAB PT LEVEL 4 STLMLC STLMLC [id number] [facility] 2024-03-15 13:22:00 2024-03-15 13:42:00 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 1.788749. [id number] [id number] 2.16.840.1. [id number]-22 00:00:00 2023-12-22 00:00:00 SUB ANNUAL [facility] VISIT STLMLC STLMLC [id number] [facility] 2023-12-22 00:00:00 2023-12-22 00:00:00 (TEL) STLMLC STLMLC [id number] [facility] 2023-12-22 00:00:00 2023-12-22 00:00:00 OFFICE VISIT ESTAB PT LEVEL 4 STLMLC STLMLC [id number] [facility] 2023-10-25 17:00:00 2023-10-25 18:00:00 Annual D2Me Janice Babin 2.16.840. 1.089477. [id number] [id number] 2.16.840.1. 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 1.815401. 4.6.21000 [id number] 2.16.840.1. [id number]. [id number] U67 [facility] 2023-04-20 17:00:00 2023-04-20 18:00:00 CAV Amina Turner 2.16.840. 1.372618. 4.6.63692 [id number] 2.16.840.1. 405079.4.6. [id number] RUK [facility] 2023-04-14 00:00:00 2023-04-14 00:00:00 Outpatient [facility]T [facility] [id number] [facility] 2022-11-22 11:13:59 2022-11-22 11:13:59 Outpatient SFA SFA [id number] Manny Carrillo 2022-08-04 10:02:36 2022-08-04 10:02:36 Outpatient SFA SFA [id number] Manny Carrillo 2022-08-04 00:00:00 2022-08-04 00:00:00 Outpatient Visit [id number] 2022-07-07 10:38:04 2022-07-07 10:38:[address] [facility] [id number] Manny Carrillo 2022-07-07 00:00:00 2022-07-07 00:00:00 Outpatient Visit [id number] 0605-09-02 08:00:00 2022-06-04 08:00:00 Outpatient Arin Guaman [facility] [id number] [facility] 2022-06-03 11:16:00 2022-06-03 11:16:00 Outpatient Arin Guaman [facility] RADI [id number] [facility] 2022-05-21 16:00:00 2022-05-21 17:00:00 ANTHONY Do 2.16.840. [id number]. 4.6.23998 [id number] 2.16.840.1. 992217.4.6. [id number] [facility] 2022-05-21 00:00:00 2022-05-21 00:00:00 Outpatient OWENS[facility]T DM[facility] [id number] [facility] 2022-05-21 00:00:00 2022-05-21 00:00:00 [place] [id number] [facility] 2022-04-16 06:14:00 2022-04-16 06:14:00 Outpatient OWENS_T DMG DMG [id number] [facility] 2021-10-07 05:50:00 2021-10-07 05:50:00 Outpatient OWENS_T DMG DMG [id number] [facility] 2021-09-03 08:02:00 2021-09-03 08:02:00 Outpatient DMG DMG [id number] [facility] 2021-04-16 12:00:00 2021-04-16 12:00:00 Outpatient DMG DMG [id number] [facility] 2021-01-06 11:15:00 2021-01-06 11:15:00 Outpatient QUINTON PENG [facility] [id number] [facility] 2020-12-02 15:30:00 2020-12-02 15:30:00 Outpatient QUINTON PENG [facility] [id number] [facility] 2020-10-28 13:00:00 2020-10-28 13:00:00 Outpatient QUINTON PENG [facility] [id number] [facility] 2020-10-23 13:00:00 2020-10-23 13:00:00 Outpatient RAFAEL OBRIEN [facility] [id number] [facility] 2020-09-24 10:59:00 2020-09-24 13:13:00 Emergency Ro Hamlin [facility] 1..840.114 350.1.13.10 4.2.7.2.686 [id number] 2020-09-24 00:00:00 2020-09-24 00:00:00 Orders Only Doctor Unassigned, Lykens [facility] 1..840.114 350.1.13.10 4.2.7.2.686 [id number] 2020-02-28 14:15:00 2020-02-28 14:15:00 Outpatient ROLA CLARK [facility] [id number] [facility] 2020-02-28 13:42:58 2020-02-28 14:02:55 Office Visit Rola Ramos [facility] 1..840.114 350.1.13.10 4.2.7.2.686 [id number] Results Test Description Test Time Test Comments Results Result Co mments Source HEMOGLOBIN [id number] 00:00:00* Test Item Value Reference Range Interpretation Comme nts HEMOGLOBIN A1c (test code = 4548-4) 6.2 % See_Comment H [Automated messa ge] The system which generated this result transmitted reference range: 4.2-5.6 %. The reference range was not used to interpret this result as normal/abnormal. ALBUMIN/CREATININE RATIO, URINE, [id number] 08:15:47* Test Item Value Reference Range Interpretation Comme nts CREATININE, URINE, CONC. (test code = 2072) 116.3 MG/DL NOT ESTAB ALBUMIN, URINE, RANDOM (test code = 18100) <0.2 MG/DL NOT ESTAB CALC ALBUMIN/CREAT, RND (test code = 25258) <2 MG/G <30 Note: Albumin/Cr eatinine ratio reference interval reflects ADA and NKF guidelines. [facility] has important pathology staff changes effective 12/01/2022. New pathology staff will provide uninterrupted, excellent patient care and clinical consultation. See URL: [email or web address]. UNLESS OTHERWISE INDICATED, ALL TESTING PERFORMED AT [facility] [address] [place] [address] CLIA: [id number], CAP: [id number] COMPREHENSIVE METABOLIC [id number] 04:41:22* Test Item Value Reference Range Interpretation Comme nts GLUCOSE (test code = 2217) 107 MG/DL 70-99 H BUN (test code = 2208) 31 MG/DL 8-23 H CREATININE (test code = 2214) 1.18 MG/DL 0.60-1.30 eGFR (2020 CKD-EPI) (test code = 96917) 52 ML/MIN/1.73 >60 L The NKF-ASN Taskforce recommends use of Cystatin C to confirm eGFR inadults at risk for CKD. [facility] offers eGFR with Cystatin C-Creatinineusing the 2020 CKD-EPI eGFR_creat-cystat equation (order code 3057) toincrease the accuracy of estimated GFR. For more information, contactur account resolution analyst or see announcement [email or web address] CALC BUN/CREAT (test code = 2235) 26 RATIO 6-28 SODIUM (test code = 2230) 141 MEQ/L 133-146 POTASSIUM (test code = 2228) 4.5 MEQ/L 3.5-5.4 CHLORIDE (test code = 2215) 104 MEQ/L 95-107 CARBON DIOXIDE (test code = 6) 23 MEQ/L 19-31 CALCIUM (test code = 2208) 9.8 MG/DL 8.5-10.5 PROTEIN, TOTAL (test code = 2228) 7.4 G/DL 6.1-8.3 ALBUMIN (test code = 1) 4.3 G/DL 3.5-5.2 CALC GLOBULIN (test code = 0) 3.1 G/DL 1.9-3.7 CALC A/G RATIO (test [...] code = 2218) 8 U/L 5-40 LIPID [id number] 04:41:22* Test Item Value Reference Range Interpretation Comme nts CHOLESTEROL (test code = 0) 217 MG/DL <200 H TRIGLYCERIDES (test code = 2) 89 MG/DL <150 HDL CHOLESTEROL (test code = 2219) 48 MG/DL >39 CALC LDL CHOL (test code = 2236) 150 MG/DL <100 H NOTE: CALCULATED LDL IS BASED ON SAEID-KUHN METHOD WHICHINCLUDES ADJUSTABLE TRIGLYCERIDE:VLDL CHOLESTEROL RATIO.THIS FACTOR VARIES BY MEASURED TRIGLYCERIDE AND NON-HDLCHOLESTEROL CONCENTRATIONS WITH INCREASED CALCULATED LDL SEENIN HIGHER TRIGLYCERIDE OR LOWER NON-HDL SPECIMENS. FOR MOREINFORMATION, SEE CLIENT ANNOUNCEMENT AT [email or web address] RISK RATIO LDL/HDL (test code = 2237) 3.13 RATIO <3.22 HEMOGLOBIN [id number] 03:12:36* Test Item Value Reference Range Interpretation Comme nts HEMOGLOBIN A1c (test code = 46462) 6.6 % 4.2-5.6 H CITIZEN OF [employer] GUIDELINES FOR HGB A1C: [...] CONSIDER ALTERNATE TESTING OR LABORATORY CONSULTATION. HEMOGLOBIN [id number] 05:10:16* Test Item Value Reference Range Interpretation Comme nts HEMOGLOBIN A1c (test code = 88348) 6.7 % 4.2-5.6 H CITIZEN OF [employer] GUIDELINES FOR HGB A1C: [...] CONSIDER ALTERNATE TESTING OR LABORATORY CONSULTATION. LIPID [id number] 03:29:16* Test Item Value Reference Range Interpretation [...] SPECIMENS. FOR MOREINFORMATION, SEE CLIENT ANNOUNCEMENT AT [email or web address] RISK RATIO LDL/HDL (test code = 2238) 2.98 RATIO <3.22 UNLESS OTHERW ISE INDICATED, ALL TESTING PERFORMED [facility] [address] [place] [address] EDITOR DICTIONARY: SATNAM AVENDANO M.D. CLIA NUMBER [id number] [facility] [place]. [id number] HEMOGLOBIN [id number] 00:00:00* Test Item Value Reference Range Interpretation Comme nts HEMOGLOBIN A1c (test code = 98730) 6.7 % LIPID [id number] 00:00:00* Test Item Value Reference Range Interpretation Comme nts CHOLESTEROL (test code = 2210) 229 MG/DL TRIGLYCERIDES (test code = 2232) 139 MG/DL HDL CHOLESTEROL (test code = 2220) 51 MG/DL CALC LDL CHOL (test code = 2237) 152 MG/DL RISK RATIO LDL/HDL (test cod e = 2238) 2.98 RATIO HEMOGLOBIN [id number] 00:00:00* Test Item Value Reference Range Interpretation Comme nts HEMOGLOBIN A1c (test code = 01187) 6.7 % LIPID [id number] 00:00:00* Test Item Value Reference Range Interpretation Comme nts CHOLESTEROL (test code = 2210) 229 MG/DL TRIGLYCERIDES (test code = 2232) 139 MG/DL HDL CHOLESTEROL (test code = 2220) 51 MG/DL CALC LDL CHOL (test code = 2237) 152 MG/DL RISK RATIO LDL/HDL (test cod e = 2238) 2.98 RATIO - US PELVIC [id number] 14:49:00 [facility] : 1960 Sex: F Name: WEI BROWN Aline [facility] : 1960 Age/S: 61 / F [address] [facility] Unit #: [id number] Loc: [place] [address] Phys: Arin Carrasquillo MD Acct: [id number] Dis Date: Status: REG CLI PHONE#: [phone] Exam Date: 06/03/2022 1300 FAX #: Reason: Hx of Ovarian Cyst EXAMS: CPT: [id number] PELVIC COMPLETE 58061 HISTORY: Pain. History of ovarian cyst Location Code: B2 TECHNIQUE: Multiple transverse and longitudinal sonographic images were obtained. FINDINGS: The uterus is surgically absent. The ovaries are not well visualized bilaterally. No suspicious adnexal masses are seen. There is no free fluid in the cul-de-sac. IMPRESSION: 1. Nonvisualization of the ovaries. No suspicious adnexal masses. 2. Surgically absent uterus t 1440 Reported and signed by: Jared Burris M.D. CC: Arin Carrasquillo MD; Kathleen Jovel DO Technologist: [facility] Date/Time: 06/03/2022 (7148) MichelleRK5 PAGE 1 Signed Report Name: WEI BROWN HETAL Patti : 1960 Age/S: 61 / F [address] [facility] [place] Unit #: [id number] Loc: [place] [address] Phys: Arin Carrasquillo MD Acct: [id number] Dis Date: Status: REG CLI PHONE #: [phone] Exam Date: 06/03/2022 1300 FAX #: Reason: Hx of Ovarian Cyst EXAMS: CPT: [id number] US PELVIC COMPLETE [id number] (Continued) Orig Print D/T: S: 06/03/2022 (4933) Probe: PAGE 2 Signed Report HEMOGLOBIN [id number] 00:00:00* Test Item Value Reference Range Interpretation Comme [facility] HEMOGLOBIN A1c (test code = 08177) 6.5 % HEMOGLOBIN [id number] 00:00:00* Test Item Value Reference Range Interpretation Comme nts HEMOGLOBIN A1c (test code = 64287) 6.5 % HEMOGLOBIN [id number] 00:00:00* Test Item Value Reference Range Interpretation Comme nts HEMOGLOBIN A1c (test code = 67094) 6.4 % LIPID [id number] 00:00:00* Test Item Value Reference Range Interpretation Comme nts CHOLESTEROL (test code = 2210) 193 MG/DL TRIGLYCERIDES (test code = 2232) 105 MG/DL HDL CHOLESTEROL (test code = 2220) 48 MG/DL CALC LDL CHOL (test code = 2237) 124 MG/DL RISK RATIO LDL/HDL (test cod e = 2238) 2.58 RATIO HEMOGLOBIN [id number] 00:00:00* Test Item Value Reference Range Interpretation Comme nts HEMOGLOBIN A1c (test code = 32705) 6.4 % LIPID [id number] 00:00:00* Test Item Value Reference Range Interpretation Comme nts CHOLESTEROL (test code = 2210) 193 MG/DL TRIGLYCERIDES (test code = 2232) 105 MG/DL HDL CHOLESTEROL (test code = 2220) 48 MG/DL CALC LDL CHOL (test code = 2237) 124 MG/DL RISK RATIO LDL/HDL (test cod e = 2238) 2.58 RATIO COMPREHENSIVE METABOLIC [id number] 00:00:00* Test Item Value Reference Range Interpretation Comme nts GLUCOSE (test code = 2217) 101 MG/DL BUN (test code = 2208) 21 MG/DL CREATININE (test code = 2214) 0.89 MG/DL eGFR AMER. (test cod e = 36368) 82 ML/MIN/1.73 eGFR NON- AMER. (test code = 98859) 71 ML/MIN/1.73 CALC BUN/CREAT (test code = [...] (test code = 2219) 10 U/L LIPID [id number] 00:00:00* Test Item Value Reference Range Interpretation Comme nts CHOLESTEROL (test code = 2210) 189 MG/DL TRIGLYCERIDES (test code = 2232) 78 MG/DL HDL CHOLESTEROL (test code = 2220) 48 MG/DL CALC LDL CHOL (test code = 2237) 125 MG/DL RISK RATIO LDL/HDL (test cod e = 2238) 2.61 RATIO HEMOGLOBIN [id number] 00:00:00* Test Item Value Reference Range Interpretation Comme nts HEMOGLOBIN A1c (test code = 66107) 6.5 % [id number] 00:00:00* Test Item Value Reference Range Interpretation Comme nts TSH, THIRD GENERATION (test code = 2821) 3.650 UIU/ML COMPREHENSIVE METABOLIC [id number] 00:00:00* Test Item Value Reference Range Interpretation Comme nts GLUCOSE (test code = 2217) 101 MG/DL BUN (test code = 2208) 21 MG/DL CREATININE (test code = 2214) 0.89 MG/DL eGFR AMER. (test cod e = 52138) 82 ML/MIN/1.73 eGFR NON- AMER. (test code = 84280) 71 ML/MIN/1.73 CALC BUN/CREAT (test code = [...] (test code = 2219) 10 U/L LIPID [id number] 00:00:00* Test Item Value Reference Range Interpretation Comme nts CHOLESTEROL (test code = 2210) 189 MG/DL TRIGLYCERIDES (test code = 2232) 78 MG/DL HDL CHOLESTEROL (test code = 2220) 48 MG/DL CALC LDL CHOL (test code = 2237) 125 MG/DL RISK RATIO LDL/HDL (test cod e = 2238) 2.61 RATIO HEMOGLOBIN [id number] 00:00:00* Test Item Value Reference Range Interpretation Comme nts HEMOGLOBIN A1c (test code = 47177) 6.5 % [id number] 00:00:00* Test Item Value Reference Range Interpretation Comme nts TSH, THIRD GENERATION (test code = 2821) 3.650 UIU/ML
[2024-09-10] MEDS ORDERED: IPRATROPIUM BROM 0.5MG/2.5ML ONE (21:08)
[2024-09-10] MEDS ORDERED: ALBUTEROL 2.5 MG/3 ML NEB SOL ONE ×2 (21:08→22:56)
[2024-09-10] MEDS ORDERED: HYDROCODONE/CHLORPHEN 5 ML/OSYR ONE (21:08)
[2024-09-10 21:45] LABS: SARS-CoV-2 Antigen CONTROL BLUE LINE VIS/BG OK; SARS-CoV-2 Antigen Rapid Res Negative (Negative)
--- NOTE | 2024-09-10 22:39 | RAD REPORT ---
EXAMINATION: ONE VIEW CHEST XR CLINICAL INDICATION: Female, 63 years old.,Cough;Congestion TECHNIQUE: Frontal chest projection is submitted. Examination is limited by patient positioning and t echnique. COMPARISON: 05/28/2023 FINDINGS: The lungs are well inflated and clear. No pneumothorax or sizable effusion. The heart is normal in s ize. Mediastinal contours are unremarkable. IMPRESSION: No acute intrathoracic abnormalities.
[2024-09-10] MEDS ORDERED: predniSONE 20 MG TAB ONE (22:56)
--- NOTE | 2024-09-10 23:03 | EDPHYS ---
Physician Documentation [facility] Name: Deepika Brown Age: 63 yrs Sex: Female : 1960 Arrival Date: 09/10/2024 Time: 20:46 Bed 7 Private MD: ED Physician Rayo Stevenson HPI: 09/10 21:30 This 63 yrs old Black Female presents to ER via Wheelchair with complaints of Shortness kb Of Breath, Cough. 21:30 Pt is a 63 year old female who presents for cough that started one month ago and has kb gotten worse. Reports posttussive vomiting. Denies fever. . Historical: - Allergies: 20:59 No Known Allergies; cm10 - Home Meds: 20:59 Eliquis oral [Active]; cm10 - PMHx: 20:59 Arthritis; Diabetes - NIDDM; Hypertension; Pulmonary Embolism; cm10 - Immunization history:: Adult Immunizations up to date. - Infectious Disease History:: Denies. - Social history:: Smoking status: Patient denies any tobacco usage or history of. ROS: 21:29 Constitutional: As per HPI kb Exam: 21:29 Constitutional: This is a well developed, well nourished patient who is awake, alert, kb and in no acute distress. Head/Face: Normocephalic, atraumatic. ENT: Moist Mucous membranes Cardiovascular: Regular rate Abdomen/GI: Soft, non-tender. No distention Skin: Warm, dry with normal turgor. Normal color. MS/ Extremity: Pulses equal, no cyanosis. Neurovascular intact. Full, normal range of motion. Neuro: Awake and alert, GCS 15, oriented to person, place, time, and situation. 21:29 Respiratory: the patient does not display signs of respiratory distress, Respirations: normal, Breath sounds: wheezing: expiratory that is mild, is scattered, Vital Signs: 21:00 BP 147 / 70; Pulse 88; Resp 22; Temp 98.9(O); Pulse Ox 98% on R/A; Weight 106.14 kg; cm10 Height 5 ft. 2 in. ; Pain 7/10; 21:56 BP 117 / 52; Pulse 82; Resp 20 S; Pulse Ox 97% on R/A; mt4 23:01 BP 118 / 53; Pulse 80; Resp 22; Pulse Ox 100% on R/A; mt4 21:00 Body Mass Index 42.80 (106.14 kg, 157.48 cm) cm10 21:00 Pain Scale: Adult cm10 [place] Coma Score: 21:07 Eye Response: spontaneous(4). Motor Response: obeys commands(6). Verbal Response: bm8 oriented(5). Total: 15. MDM: 20:55 Medical Screening Exam initiated kb 21:30 Data reviewed: vital signs, nurses notes. kb 23:01 Differential diagnosis: flu, covid, uri, bronchitis, pneumonia. Test considered but Not kb performed: Labs: cbc, cmp considered but resp even and unlabored, CXR negative for pneumonia, oxygen 100% on room air. . Counseling: I had a detailed discussion with the patient and/or guardian regarding the historical points, exam findings, and any diagnostic results supporting the discharge/admit diagnosis, lab results, radiology results, the need for outpatient follow up, a family practitioner, to return to the emergency department if symptoms worsen or persist or if there are any questions or concerns that arise at home. 12 21:04 Order name: Flu; Complete Time: 21:49 kb 09/10 21:04 Order name: SARS-COV-2 Antigen Rapid; Complete Time: 21:49 kb 12 21:04 Order name: Chest Single View XRAY; Complete Time: 22:49 kb Administered Medications: 21:15 Drug: Albuterol Inhalation 2.5 mg Inhalation once Route: Inhalation; mt4 21:54 Follow up: Response: No adverse reaction mt4 21:15 Drug: Ipratropium Inhalation Aerosol 0.5 mg Inhalation once Route: Inhalation; mt4 21:54 Follow up: Response: No adverse reaction mt4 21:15 Drug: Tussionex Pennkinetic ER PO Suspension 5 ml PO once Route: PO; mt4 21:53 Follow up: Response: No adverse reaction mt4 23:04 Follow up: Response: No adverse reaction bm8 23:01 Drug: Albuterol Inhalation 2.5 mg Inhalation once Route: Inhalation; mt4 23:04 Follow up: Response: No adverse reaction bm8 23:01 Drug: predniSONE PO 40 mg PO once Route: PO; mt4 23:05 Follow up: Response: No adverse reaction bm8 Disposition: 09/11 00:29 Co-signature as Attending Physician, Rayo Potepalov MD I agree with the assessment sp4 and plan of care. I reviewed the patient's care provided by the Advanced Practice Provider and agree with the diagnosis and treatment plan. Disposition Summary: 09/10/24 23:02 Discharge Ordered Notes: Location: Home kb Condition: Stable kb Diagnosis - Cough kb Followup: kb - With: Emergency Department - When: As needed - Reason: Worsening of condition Followup: kb - With: Private Physician - When: 2 - 3 days - Reason: Recheck today's complaints, Continuance of care, Re-evaluation by your physician Discharge Instructions: - Discharge Summary Sheet kb - Acute Bronchitis, Adult, [id number] kb - Cough, Adult, [id number] kb Forms: - Medication Reconciliation Form kb - Antibiotic Education kb - Prescription Opioid Use kb - Patient Portal Instructions kb - Leadership Thank You Letter kb Prescriptions: - albuterol sulfate 90 mcg/actuation Inhalation HFA Aerosol Inhaler - inhale 2 puff INHALATION route every 4-6 hours As needed; 1 unit; Refills: 0, kb Product Selection Permitted - Prednisone 20 mg Oral Tablet - take 1 tablet ORAL route once daily for 5 days; 5 tablet; Refills: 0, Product kb Selection Permitted - Tessalon Perles 100 mg Oral Capsule - take 1 capsule ORAL route every 8 hours As needed; 15 capsule; Refills: 0, kb Product Selection Permitted - Zithromax 500 mg Oral Tablet - take 1 tablet ORAL route once daily for 5 days; 5 tablet; Refills: 0, Product kb Selection Permitted Signatures: Dispatcher [employer] EDJaimie Georges, BUTTON RECLAIMER-C BUTTON RECLAIMER-Rayo Collins MD MD sp4 Darcie Newberry, RN RN cm10 Jae Wade RN RN mt4 Shalom Ramos RN bm8
--- NOTE | 2024-09-10 23:03 | ER ---
Nurse's Notes [facility] Name: Deepika Brown Age: 63 yrs Sex: Female : 1960 Arrival Date: 09/10/2024 Time: 20:46 Bed 7 Private MD: Diagnosis: Cough Presentation: 09/10 21:00 Chief complaint: Patient states: Cough and shortness of breath onset 1 month ago. Pt cm10 states that it is not getting better. pt also reports right sided chest pain. Coronavirus screen: Client denies travel out of the [place] in the last 14 days. Ebola Screen: Patient denies travel to an Ebola-affected area in the 21 days before illness onset. No symptoms or risks identified at this time. Initial Sepsis Screen: Does the patient meet any 2 criteria? RR > 20 per min. Does the patient have a suspected source of infection? No. Patient's initial sepsis screen is negative. Risk Assessment: Do you want to hurt yourself or someone else? Patient reports no desire to harm self or others. Onset of symptoms was September 10, 2024. 21:00 Method Of Arrival: Wheelchair cm10 21:00 Acuity: ESME 3 cm10 Triage Assessment: 21:00 General: Appears in no apparent distress. uncomfortable, Behavior is calm, cooperative. cm10 Pain: Complains of pain in chest Pain does not radiate. Pain currently is 7 out of 10 on a pain scale. Neuro: No deficits noted. Level of Consciousness is awake, alert, obeys commands, Oriented to person, place, time, situation, Appropriate for age. Respiratory: No deficits noted. Reports shortness of breath cough that is. 23:07 Respiratory: Onset: The symptoms/episode began/occurred 1 month or more, the patient bm8 has mild shortness of breath. Historical: - Allergies: 20:59 No Known Allergies; cm10 - Home Meds: 20:59 Eliquis oral [Active]; cm10 - PMHx: 20:59 Arthritis; Diabetes - NIDDM; Hypertension; Pulmonary Embolism; cm10 - Immunization history:: Adult Immunizations up to date. - Infectious Disease History:: Denies. - Social history:: Smoking status: Patient denies any tobacco usage or history of. Screenin:07 [facility] ED Fall Risk Assessment (Adult) History of falling in the last 3 months, bm8 including since admission No falls in past 3 months (0 pts) Confusion or Disorientation No (0 pts) Intoxicated or Sedated No (0 pts) Impaired Gait No (0 pts) Mobility Assist Device Used No (0 pt) Altered Elimination No (0 pt) Score/Fall Risk Level 0 - 2 = Low Risk Oriented to surroundings, Maintained a safe environment, Educated pt \T\ family on fall prevention, incl call for assistance when getting out of bed, Assessed \T\ reinforced patient's understanding of fall precautions, Hourly rounding (assess needs \T\ fall precautionary measures) done, Used ambulatory aids as needed (educated on \T\ assisted with), Used gait belt as appropriate. Abuse screen: Denies threats or abuse. Nutritional screening: No deficits noted. Tuberculosis screening: No symptoms or risk factors identified. Assessment: 21:07 Reassessment: Patient appears in no apparent distress at this time. Patient and/or bm8 family updated on plan of care and expected duration. Pain level reassessed. Patient is alert, oriented x 3, equal unlabored respirations, skin warm/dry/pink. General: Appears in no apparent distress. comfortable, Behavior is calm, cooperative, appropriate for age. Pain: Complains of pain in chest Pain currently is 8 out of 10 on a pain scale. Neuro: Level of Consciousness is awake, alert, obeys commands, Oriented to person, place, time, situation, Appropriate for age. Cardiovascular: Reports chest pain, from cough Rhythm is sinus rhythm. Respiratory: Airway is patent Respiratory effort is even, unlabored, Respiratory pattern is regular, symmetrical, Breath sounds with wheezes in left lower lobe, right lower lobe, left posterior lower lobe, right posterior middle lobe and right posterior lower lobe. GI: No signs and/or symptoms were reported involving the gastrointestinal system. : No signs and/or symptoms were reported regarding the genitourinary system. EENT: No signs and/or symptoms were reported regarding the EENT system. Derm: No signs and/or symptoms reported regarding the dermatologic system. Musculoskeletal: No signs and/or symptoms reported regarding the musculoskeletal system. 23:01 Reassessment: Patient is alert, oriented x 3, equal unlabored respirations, skin mt4 warm/dry/pink. General: Appears in no apparent distress. comfortable. Pain:. Respiratory: Airway is patent Respiratory effort is even, unlabored, Respiratory pattern is regular, symmetrical, Breath sounds with wheezes in right upper lobe, left upper lobe, left lower lobe and right lower lobe. Vital Signs: 21:00 BP 147 / 70; Pulse 88; Resp 22; Temp 98.9(O); Pulse Ox 98% on R/A; Weight 106.14 kg; cm10 Height 5 ft. 2 in. ; Pain 7/10; 21:56 BP 117 / 52; Pulse 82; Resp 20 S; Pulse Ox 97% on R/A; mt4 23:01 BP 118 / 53; Pulse 80; Resp 22; Pulse Ox 100% on R/A; mt4 21:00 Body Mass Index 42.80 (106.14 kg, 157.48 cm) cm10 21:00 Pain Scale: Adult cm10 [place] Coma Score: 21:07 Eye Response: spontaneous(4). Motor Response: obeys commands(6). Verbal Response: bm8 oriented(5). Total: 15. ED Course: 20:46 Patient arrived in ED. jj6 20:54 Shalom Ramos, RN is Primary Nurse. bm8 20:54 Jaimie Chilel FNP-C is PHCP. kb 20:54 Rayo Stevenson MD is Attending Physician. kb 21:00 Arm band placed on left wrist. Patient placed in an exam room, on a stretcher. cm10 21:01 Triage completed. cm10 21:07 Patient has correct armband on for positive identification. Bed in low position. Call bm8 light in reach. Side rails up X 1. Client placed on continuous cardiac and pulse oximetry monitoring. NIBP monitoring applied. Pulse ox on. NIBP on. Door closed. Noise minimized. Warm blanket given. Pillow given. Verbal reassurance given. Head of bed elevated. 21:07 No provider procedures requiring assistance completed. COVID swab sent to lab. Flu bm8 and/or RSV swab sent to lab. Initial Neb Treatment Given as ordered Patient was instructed and evaluated on procedure Patient tolerated procedure well without adverse effect. Patient maintains SpO2 saturation greater than 95% on room air. 21:57 Chest Single View XRAY In Process Unspecified. EDMS 23:04 Provided Education on: post er care. bm8 23:04 Patient did not have IV access during this emergency room visit. bm8 Administered Medications: 21:15 Drug: Albuterol Inhalation 2.5 mg Inhalation once Route: Inhalation; mt4 21:54 Follow up: Response: No adverse reaction mt4 21:15 Drug: Ipratropium Inhalation Aerosol 0.5 mg Inhalation once Route: Inhalation; mt4 21:54 Follow up: Response: No adverse reaction mt4 21:15 Drug: Tussionex Pennkinetic ER PO Suspension 5 ml PO once Route: PO; mt4 21:53 Follow up: Response: No adverse reaction mt4 23:04 Follow up: Response: No adverse reaction bm8 23:01 Drug: Albuterol Inhalation 2.5 mg Inhalation once Route: Inhalation; mt4 23:04 Follow up: Response: No adverse reaction bm8 23:01 Drug: predniSONE PO 40 mg PO once Route: PO; mt4 23:05 Follow up: Response: No adverse reaction bm8 Medication: 21:07 VIS not applicable for this client. bm8 Outcome: 23:02 Discharge ordered by . sahil 23:06 Discharged to home ambulatory, bm8 23:06 Condition: stable 23:06 Discharge instructions given to patient, Instructed on discharge instructions, follow up and referral plans. no drinking with medication, no driving heavy equipment, medication usage, safety practices, Demonstrated understanding of instructions, follow-up care, medications, Prescriptions given X 4, 23:11 Patient left the ED. bm8 Signatures: Dispatcher [employer] EDJaimie Georges, CUP TRIMMING MACHINE OPERATOR-C CUP TRIMMING MACHINE OPERATOR-Ckb Thelma Arteaga [id number] Darcie Newberry RN RN cm10 Shalom Ramos RN RN bm8 Jae Wade RN RN mt4
[2024-09-11 04:36] VITALS: TEMP 98.9
[2024-09-11 04:39] VITALS: BP 118/53; O2SAT 100
== END 2024-09-10 23:11 | disposition home or self-care (01) ==
LOC: ER 20:46
DX: R05.9 Cough, unspecified (principal); I10 Essential (primary) hypertension; Z86.711 Personal history of pulmonary embolism; Z79.01 Long term (current) use of anticoagulants; Z11.52 Encounter for screening for COVID-19
CPT/HCPCS: 36415; 87804 ×2; 71045; 94640; 99284; 87811; J7512; J7613 ×2; J7644